=== PATIENT | female | born 1955 | race Caucasian/White ===

== ENCOUNTER 2017-01-03 07:04 | Day surgery (SDC) | payer MEDICARE ==
[2017-01-02 08:39] VITALS: BMI 32.6
[~2017-01-03 07:04] MED LIST: LACTATED RINGERS 1,000 ML IV SCH; LIDOCAINE 1% 20 ML VIAL (10MG/ML) FOR IV START INTRADERMA PRN
[2017-01-03] MEDS ORDERED: LACTATED RINGERS 1,000 ML IV ONE (07:12)
[2017-01-03 07:23] VITALS: TEMP 97.8
[2017-01-03] MEDS ORDERED: LIDOCAINE 1% INJ 10MG/ML (20 ML MDV) ONE (07:48)
[2017-01-03] MEDS ORDERED: PROPOFOL 10 MG/ML 20 ML VIAL IV ONE (07:48)
--- NOTE | 2017-01-03 07:52 | P.GSHP ---
History of Present Illness H&P Date: 01/03/17 Chief Complaint: GERD This is a 61-year-old female for from Dr. joseph. Patient rents today for EGD. She's had issues with GERD. Past Medical History Past Medical History: COPD, GERD/Reflux, Myocardial Infarction ([place]) Additional Past Medical History / Comment(s): STATES HEART SKIPS BEATS, HX OF [place] X2 (1ST UNKNOWN DATE, 2009)., STATES HAVING NAUSEA, OCCASIONAL VOMITING AND PAIN FROM HER GALL BLADDER. Last Myocardial Infarction Date:: 2009 History of Any Multi-Drug Resistant Organisms: None Reported Past Surgical History: Appendectomy, Heart Catheterization With Stent, Orthopedic Surgery, Tubal Ligation Additional Past Surgical History / Comment(s): RIGHT ANKLE Past Anesthesia/Blood Transfusion Reactions: No Reported Reaction Date of Last Stent Placement:: 2009 Past Psychological History: Anxiety, Depression Smoking Status: Current every day smoker Past Alcohol Use History: None Reported Additional Past Alcohol Use History / Comment(s): SMOKING SINCE 15 YRS OLD. SMOKE 1/2 PPD. Past Drug Use History: Marijuana Additional Drug Use History / Comment(s): CURRENT MARIJUANA USE. - Past Family History Brother(s) Family Medical History: Cancer Additional Family Medical History / Comment(s): ESOPHAGEAL CANCER Sister(s) Family Medical History: Blood Disorder Additional Family Medical History / Comment(s): 1 SISTER HAD BLOOD DISORDER AND FROM CLOT. 1 SISTER HAD DVT. 1 SISTER HAD PE. Medications and Allergies Home Medications Medication Instructions Recorded Confirmed Type Albuterol Inhaler [Ventolin Hfa 1 - 2 puff INHALATION Q6HR PRN MDD 01/02/17 History Inhaler] S Citalopram Hydrobromide [CeleXA] 40 mg PO DAILY 01/02/17 01/03/17 History Isosorbide Mononitrate ER [Imdur] 60 mg PO DAILY 01/02/17 01/03/17 History Metoprolol Tartrate [Lopressor] 50 mg PO BID 01/02/17 01/03/17 History Omeprazole 40 mg PO DAILY 01/02/17 01/03/17 History busPIRone HCL 15 mg PO TID 01/02/17 01/03/17 History Allergies Allergy/AdvReac Type Severity Reaction Status Date / Time ibuprofen [From Motrin] AdvReac Unknown Nausea & Verified 01/03/17 07:24 Vomiting tetracycline AdvReac Unknown Nausea & Verified 01/03/17 07:24 Vomiting Surgical - Exam Vital Signs Temp Pulse Resp BP Pulse Ox 97.8 F 98 20 133/88 96 01/03/17 07:21 01/03/17 07:21 01/03/17 07:21 01/03/17 07:21 01/03/17 07:21 - General well developed, no distress - Eyes PERRL - ENT normal pinna - Neck no masses - Respiratory normal expansion - Cardiovascular Rhythm: regular - Abdomen Abdomen: soft, non tender Assessment and Plan Plan: GERD. We'll perform EGD.
--- NOTE | 2017-01-03 08:12 | P.OP ---
Date of Procedure: 01/03/17 Preoperative Diagnosis: GERD Postoperative Diagnosis: Gastritis, no evidence of hiatal hernia Procedure(s) Performed: EGD Implants: Anesthesia: MAC Surgeon: Wilner Hirsch Pathology: other (Antrum, esophagus) Condition: stable Disposition: PACU Indications for Procedure: Operative Findings: Description of Procedure: The patient's placed on the endoscopy table in the lateral position. She received IV sedation. The gastroscope some placed oropharynx passed in the esophagus and stomach. Scope was placed through the pylorus. The first and second portion of the duodenum appeared normal. Scope was then brought back the antrum and this appeared mildly inflamed. A biopsies performed. The scope was unretroflexed and remainder of the stomach appeared normal. There is no evidence of hiatal hernia. The GE junction was at 40 cm. There is minimal inflammation the distal esophagus was biopsied. The proximal esophagus appeared normal. Scope was withdrawn for patient.
[2017-01-03 08:25] VITALS: BP 144/86; PULSE 68; RESP 18
== END 2017-01-03 08:42 | disposition home or self-care (01) ==
LOC: ORWHC2ENDO 07:04
PROVIDERS: ATTEND Surgery
DX: K21.0 Gastro-esophageal reflux disease with esophagitis (principal); K29.50 Unspecified chronic gastritis without bleeding; Z80.0 Family history of malignant neoplasm of digestive organs; I25.10 Atherosclerotic heart disease of native coronary artery without angina pectoris; F17.200 Nicotine dependence, unspecified, uncomplicated; J44.9 Chronic obstructive pulmonary disease, unspecified; Z79.899 Other long term (current) drug therapy; Z88.6 Allergy status to analgesic agent; Z88.1 Allergy status to other antibiotic agents
CPT/HCPCS: 88305; 88342; 43239; J2001; J2704

== ENCOUNTER → 2017-01-24 | Outpatient (CLI) | payer MEDICARE ==
--- NOTE | 2017-01-24 14:23 | MR ---
EXAMINATION TYPE: MR MRCP DATE OF EXAM: 01/24/2017 COMPARISON: NONE HISTORY: 61-year-old female Calculus of bile duct without cholangitis Technique: Multiplanar, multisequence images of the abdomen were obtained without IV contrast. Highly T2-weighted sequences performed. Radiographic instructions were generated on a dedicated independent workstation. FINDINGS: The opposed phase images of the liver show no significant loss of signal on the out of phase series t o suggest fatty infiltration. There is a 1.5 cm cyst along the anterior gallbladder fossa. Otherwise, no focal liver lesion. There is moderate intrahepatic and extrahepatic biliary ductal dilatation. The bile duct measures up to 1.3 cm and shows a 1 cm T2 dark and mildly T1 bright rounded filling defect at the distal bile lillie t near the ampulla. There may be a short segment stricture or focal spasm of the lower bile duct just above the filling defect given bile duct caliber at 4 mm here. The gallbladder is distended to the upper limits of normal at 3.7 cm wide. No cholelithiasis seen. Ad renal glands, right kidney, spleen, and pancreas appear within normal limits. There are a couple tiny cysts in the left kidney measuring up to 6 mm. No abdominal ascites, upper abdominal lymphadenopathy, or gross bowel abnormality seen. IMPRESSION: 1. A 1 cm bilirubin stone impacted at the distal duct/ampulla region causing moderate intrahepatic an d extrahepatic biliary ductal dilatation. 2. Short segment narrowing of the bile duct to 4 mm just above the stone could represent focal strict ure or more likelyspasm of the duct. 3. No additional cholelithiasis seen.
== END ==
LOC: RADMRIMAIN 13:11
PROVIDERS: ATTEND Surgery
DX: K80.70 Calculus of gallbladder and bile duct without cholecystitis without obstruction (principal)
CPT/HCPCS: 74181

== ENCOUNTER 2017-01-31 13:42 | Day surgery (SDC) | payer MEDICARE ==
[2017-01-30 11:12] VITALS: BMI 32.6
[~2017-01-31 13:42] MED LIST changes: +Pre Op ABX Message 1 EACH MISC MISCELLANE ONE
[2017-01-31 14:15] VITALS: TEMP 98.7
[2017-01-31] MEDS ORDERED: INDOMETHACIN 50MG SUPPOSITORY RECTAL ONE (14:15)
[2017-01-31] MEDS ORDERED: LEVOFLOXACIN 500MG-D5W PMX 500 MG in DEXTROSE/WATER 1 100ML.BAG IVPB ONE (14:15)
[2017-01-31 14:24] LABS: Basophils # (A) 0.1 k/uL (0-0.2); Basophils % (A) 1 %; CH 30.1; CHCM 33.5; Eosinophils # (A) 0.1 k/uL (0-0.7); Eosinophils % (A) 2 %; HCT 48.7 % (34.0-46.0); HDW 2.58; HGB 15.6 gm/dL (11.4-16.0); Luc # (Auto) 0.11; Luc % (Auto) 2; Lymphocytes # (A) 2.3 k/uL (1.0-4.8); Lymphocytes % (A) 34 %; MCH 29.1 pg (25.0-35.0); MCHC 32.1 g/dL (31.0-37.0); MCV 90.6 fL (80.0-100.0); Mean Platelet Volume 7.9; Monocytes # (A) 0.4 k/uL (0-1.0); Monocytes % (A) 6 %; Neutrophils # (A) 3.9 k/uL (1.3-7.7); Neutrophils % (A) 56 %; RBC 5.37 m/uL (3.80-5.40); WBC 6.9 k/uL (3.8-10.6); WBC (Perox) 6.43
[2017-01-31 14:28] LABS: INR 1.1 (<1.2); Partial Thromboplastin Time 23.3 sec (22.0-30.0); Prothrombin Time 10.9 sec (9.0-12.0)
[2017-01-31 14:35] LABS: ALT 53 U/L (9-52); AST 33 U/L (14-36); Alkaline Phosphatase 455 U/L (38-126); Anion Gap 9 mmol/L; Blood Urea Nitrogen 10 mg/dL (7-17); Calcium 9.7 mg/dL (8.4-10.2); Carbon Dioxide 25 mmol/L (22-30); Chloride 108 mmol/L (98-107); Glucose 93 mg/dL (74-99); Non-African American GFR(MDRD) >60 (>60 ml/min/1.73 sqM); Potassium 4.6 mmol/L (3.5-5.1); Sodium 142 mmol/L (137-145); Total Protein 7.4 g/dL (6.3-8.2)
[2017-01-31] MEDS ORDERED: KETAMINE 10 MG/ML 20 ML VIAL ONE (15:03)
[2017-01-31] MEDS ORDERED: PROPOFOL 10 MG/ML 20 ML VIAL IV ONE (15:03)
[2017-01-31] MEDS ORDERED: LIDOCAINE 1% INJ 10MG/ML (20 ML MDV) ONE (15:03)
[2017-01-31] MEDS ORDERED: fentaNYL (PF) 50 MCG/ML 2 ML AMP ONE (15:03)
[2017-01-31] MEDS ORDERED: MIDAZOLAM 2 MG/2 ML VIAL ONE (15:03)
[2017-01-31] MEDS ORDERED: IOHEXOL 300 MG/ML 50 ML BOTTLE MISCELLANE ONE (15:41)
[2017-01-31 15:56] VITALS: RESP 16
--- NOTE | 2017-01-31 16:00 | FL ---
Fluoroscopy History: ERCP hx of stones, 31 secs fluoro, 1 saved image.
--- NOTE | 2017-01-31 16:02 | P.PCN ---
Date of Procedure: 01/31/17 Preoperative Diagnosis: Postoperative Diagnosis: Procedure(s) Performed: Procedure: Endoscopic retrograde cholangiopancreatography with sphincterotomy and extraction of common bile duct stone using the 11.5 mm balloon catheter Preoperative diagnosis: Abdominal pain, liver enzymes, and abnormal CT and abnormal MRI. Postoperative diagnosis: 1. Filling defect in a somewhat dilated common bile duct consistent with common bile duct stone. 2. Successful sphincterotomy and extraction of a common bile duct stone using the 11.5 mm balloon catheter. Preparation and sedation: Were provided by anesthesia. Brief clinical history: 61-year old female with history of recurrent abdominal pain and abnormal liver enzymes in October. CT and MRI raised possibility of CBD stone. Procedure: With the patient in the prone position and after informed consent and adequate sedation, I passed the Olympus video duodenoscope down the esophagus into the stomach then passed it through the pylorus into the duodenum and brought the papilla into view. Initial cannulation and injection with dye resulted in opacification of the pancreatic duct. I was then able to selectively cannulate the common bile duct and inject dye. CBD appeared somewhat dilated and there was a filling defect distally consistent with a stone measuring around 1 cm or so. I, therefore, proceeded to exchange the catheter for a sphincterotome over a guidewire and after performing the sphincterotomy I was able to extract the common bile duct stone using the 11.5 mm balloon catheter. The patient tolerated the procedure well and did not have any immediate complications. Plan: The patient will be observed in the postop area for the next few hours and if stable she will be discharged home to follow-up as outpatient. The patient will be scheduled for cholecystectomy in the near future as per Dr Hirsch. Implants: Indications for Procedure: Operative Findings: Description of Procedure:
[2017-01-31 16:58] VITALS: BP 163/93; PULSE 56
== END 2017-01-31 17:05 | disposition home or self-care (01) ==
LOC: ORWHC2ENDO 13:42
DX: K80.51 Calculus of bile duct without cholangitis or cholecystitis with obstruction (principal); R93.8 Abnormal findings on diagnostic imaging of other specified body structures; R74.8 Abnormal levels of other serum enzymes; J44.9 Chronic obstructive pulmonary disease, unspecified; K21.9 Gastro-esophageal reflux disease without esophagitis; I25.10 Atherosclerotic heart disease of native coronary artery without angina pectoris; I10 Essential (primary) hypertension; I49.9 Cardiac arrhythmia, unspecified; G47.33 Obstructive sleep apnea (adult) (pediatric); F41.9 Anxiety disorder, unspecified; F32.9 Major depressive disorder, single episode, unspecified; I25.2 Old myocardial infarction; Z79.899 Other long term (current) drug therapy; Z88.6 Allergy status to analgesic agent; Z88.1 Allergy status to other antibiotic agents; F17.200 Nicotine dependence, unspecified, uncomplicated
CPT/HCPCS: 80053; 85025; 85610; 85730; 74330; 43264; 43262; J2250; J1956; J2001; J3010; J2704; Q9967

== ENCOUNTER 2017-03-06 08:51 | Day surgery (SDC) | payer MEDICARE ==
[2017-02-28 14:34] VITALS: BMI 32.6
[~2017-03-06 08:51] MED LIST changes: +DEXAMETHASONE SOD PHOSPHATE 10 MG/ML 1 ML VIAL IV ONE; +HEPARIN SODIUM,PORCINE 5,000 UNIT/ML 1 ML VIAL SQ ONE; +MIDAZOLAM 2 MG/2 ML VIAL IV PRN; +ONDANSETRON 4 MG/2 ML VIAL IVP ONE; -Pre Op ABX Message 1 EACH MISC MISCELLANE ONE; +SCOPOLAMINE 1.5MG/72HR PATCH TRANSDERM ONE; +ceFAZolin 2 GM in SODIUM CHLORIDE 0.9% 100 ML IVPB ONE
--- NOTE | 2017-03-06 10:25 | P.GSHP ---
History of Present Illness H&P Date: 03/06/17 Chief Complaint: Right upper quadrant pain This is a 61-year-old female who's had issues with rectal quadrant pain. Patient recent ERCP with stone extraction. She presents today for laparoscopic cholecystectomy. Past Medical History Past Medical History: COPD, GERD/Reflux, Myocardial Infarction ([place]) Additional Past Medical History / Comment(s): STATES HEART SKIPS BEATS, HX OF [place] X2 (1ST UNKNOWN DATE, 2009)., STATES HAVING NAUSEA, OCCASIONAL VOMITING AND PAIN FROM HER GALL BLADDER. Last Myocardial Infarction Date:: 2009 History of Any Multi-Drug Resistant Organisms: None Reported Past Surgical History: Appendectomy, Heart Catheterization With Stent, Hysterectomy, Orthopedic Surgery, Tubal Ligation Additional Past Surgical History / Comment(s): RIGHT ANKLE, EGD Past Anesthesia/Blood Transfusion Reactions: No Reported Reaction Date of Last Stent Placement:: 2009 Past Psychological History: Anxiety, Depression Smoking Status: Current every day smoker Past Alcohol Use History: None Reported Additional Past Alcohol Use History / Comment(s): SMOKING SINCE 15 YRS OLD. SMOKE 1/2 PPD. Past Drug Use History: Marijuana Additional Drug Use History / Comment(s): CURRENT MARIJUANA USE-OCCASIONAL USE - Past Family History Brother(s) Family Medical History: Cancer Additional Family Medical History / Comment(s): ESOPHAGEAL CANCER Sister(s) Family Medical History: Blood Disorder, Deep Vein Thrombosis (DVT), Pulmonary Embolus Additional Family Medical History / Comment(s): 1 SISTER HAD BLOOD DISORDER AND FROM CLOT. 1 SISTER HAD DVT. 1 SISTER HAD PE. Medications and Allergies Home Medications Medication Instructions Recorded Confirmed Type Albuterol Inhaler [Ventolin Hfa 1 - 2 puff INHALATION Q6HR PRN MDD 01/02/17 History Inhaler] S Citalopram Hydrobromide [CeleXA] 40 mg PO DAILY 01/02/17 02/28/17 History Isosorbide Mononitrate ER [Imdur] 60 mg PO DAILY 01/02/17 02/28/17 History Metoprolol Tartrate [Lopressor] 50 mg PO BID 01/02/17 02/28/17 History Omeprazole 40 mg PO DAILY 01/02/17 02/28/17 History busPIRone HCL 15 mg PO TID 01/02/17 02/28/17 History Allergies Allergy/AdvReac Type Severity Reaction Status Date / Time ibuprofen [From Motrin] AdvReac Unknown Nausea & Verified 03/06/17 10:02 Vomiting tetracycline AdvReac Unknown Nausea & Verified 03/06/17 10:02 Vomiting Surgical - Exam - General well developed, no distress - Eyes PERRL - ENT normal pinna - Neck no masses - Respiratory normal expansion - Cardiovascular Rhythm: regular - Abdomen Abdomen: soft Assessment and Plan Plan: Cholelithiasis History of common bile duct stone We'll perform laparoscopic cholecystectomy.
[2017-03-06] MEDS ORDERED: fentaNYL (PF) 50 MCG/ML 2 ML AMP ONE (10:49)
[2017-03-06] MEDS ORDERED: ROCURONIUM BROMIDE 10 MG/ML 10 ML VIAL IV ONE (10:49)
[2017-03-06] MEDS ORDERED: GLYCOPYRROLATE 0.2 MG/ML 2 ML VIAL ONE (10:49)
[2017-03-06] MEDS ORDERED: LIDOCAINE 1% INJ 10MG/ML (20 ML MDV) ONE (10:49)
[2017-03-06] MEDS ORDERED: PROPOFOL 10 MG/ML 20 ML VIAL IV ONE (10:49)
[2017-03-06] MEDS ORDERED: SUCCINYLCHOLINE CHLORIDE 100 MG/5 ML SYR IV ONE (10:49)
[2017-03-06] MEDS ORDERED: MIDAZOLAM 2 MG/2 ML VIAL ONE (10:49)
[2017-03-06] MEDS ORDERED: NEOSTIGMINE 1 MG/ML 10 ML VIAL ONE (10:49)
[2017-03-06] MEDS ORDERED: BUPIVACAIN-EPI 0.5%-1:200,000 30 ML VIAL SQ ONE (11:05)
--- NOTE | 2017-03-06 11:25 | P.OP ---
Date of Procedure: 03/06/17 Preoperative Diagnosis: Cholelithiasis Cholecystitis Postoperative Diagnosis: Cholelithiasis Cholecystitis Procedure(s) Performed: Laparoscopic cholecystectomy Anesthesia: ARY Surgeon: Wilner Hirsch Estimated Blood Loss (ml): 5 Pathology: other (Gallbladder) Condition: stable Disposition: PACU Description of Procedure: The patient was placed on the operating table. The patient received a general endotracheal tube anesthesia. The patients abdomen was prepped and draped in the usual sterile fashion. Through an infraumbilical stab incision, the fascia of the anterior abdominal wall was grasped with a pair of Kochers and then the Veress needle was placed in the peritoneal cavity. Position of the Veress needle was confirmed with positive drop test. The abdomen was then insufflated. After adequate insufflation, the 10 mm trocar was placed in the peritoneal cavity. Following this the laparoscope was placed in the peritoneal cavity. The patient was placed in the head-up, right side up position and then a 5 mm trocar was placed in the right lateral and right subcostal position under direct visualization. A 8 mm trocar was placed in the epigastric position. The gallbladder was grasped in the fundus and infundibulum. Traction on the gallbladder was placed in the lateral and the cephalad positions. The triangle of Calot was visualized.. The cystic duct was bluntly dissected until the union of the cystic duct and common bile duct was seen. The cystic duct was then divided and sealed with the Harmonic scissors. A PDS Endoloop was then placed throughout the cystic duct stump. The cystic artery divided and sealed with the Harmonic scissors. The gallbladder was then removed from the liver bed using Harmonic scissors. The gallbladder was then extracted through the epigastric port site. Operative field was checked for any bleeding spots and Harmonic scissors was used to coagulate the liver bed. The abdomen was irrigated. The trocars were removed. The skin was closed using interrupted 3-0 Vicryl suture. Dermabond dressing were applied. The patient tolerated the procedure well.
[2017-03-06] MEDS: HYDROmorphone 1 MG/ML 1 ML SYRINGE IVP PRN ×4 (11:35→11:53)
[2017-03-06 11:44] VITALS: TEMP 98.2
[2017-03-06] MEDS: MEPERIDINE 50 MG/ML SYRINGE IVP ONE ×2 (12:12→12:17)
[2017-03-06 12:15] VITALS: RESP 18
[2017-03-06 12:35] VITALS: PULSE 57
[2017-03-06] MEDS ORDERED: HYDROcodone/APAP 7.5-325MG 1 EACH TAB PO ONE (12:53)
[2017-03-06 13:34] VITALS: BP 125/71
== END 2017-03-06 14:03 | disposition home or self-care (01) ==
LOC: OR 08:51
PROVIDERS: ATTEND Surgery
DX: K81.1 Chronic cholecystitis (principal); K21.9 Gastro-esophageal reflux disease without esophagitis; J44.9 Chronic obstructive pulmonary disease, unspecified; I25.2 Old myocardial infarction; F17.200 Nicotine dependence, unspecified, uncomplicated; F41.9 Anxiety disorder, unspecified; F32.9 Major depressive disorder, single episode, unspecified; Z79.899 Other long term (current) drug therapy; Z88.6 Allergy status to analgesic agent; Z88.1 Allergy status to other antibiotic agents
CPT/HCPCS: 93005; 88304; 47562; J2250; J1644; J1100; J2710; J2175; J0690; J2405; J2001; J3010; J1170; J0330; J2704

== ENCOUNTER → 2017-12-21 | Outpatient (CLI) | payer MEDICARE ==
--- NOTE | 2017-12-22 05:22 | MR ---
EXAMINATION TYPE: MR cervical spine wo con DATE OF EXAM: 12/21/2017 COMPARISON: None HISTORY: Pain, Tingling, Numbness in arms TECHNIQUE: Multiplanar, multisequence images of the cervical spine were acquired. Cervical vertebra have normal alignment. There is mild narrowing of cervical disc spaces throughout t he cervical spine. There is spurring of the endplates and small posterior disc bulges posteriorly fro m C3 to C7. The canal is narrowed to 7 mm at C5-6. Canal is 8.5 mm at C6-7. Canal is 7.5 mm at C3-4. Canal is 7.5 mm at C4-5. Cervical spinal cord has normal signal pattern without evidence of edema. Th e brainstem appears intact. There is no compression fracture. There is no cervical paraspinal mass. C 5-6 disc herniation extends to the right side impinging on the neural foramen. This C3-4 disc herniat ion extends to the left side impinging on the neural foramen. I see no focal bone destruction. IMPRESSION: Multilevel spondylotic changes. Mild multilevel cervical spinal stenosis as above. Small posterior ce rvical disc herniations. Disc herniation is towards the right side at C5-6 and the left side at C3-4.
== END | disposition home or self-care (01) ==
LOC: RADMRIMAIN 18:09
PROVIDERS: ATTEND Family Medicine
DX: M48.02 Spinal stenosis, cervical region (principal); M50.21 Other cervical disc displacement, high cervical region; M47.812 Spondylosis without myelopathy or radiculopathy, cervical region
CPT/HCPCS: 72141

== ENCOUNTER → 2019-05-10 | Outpatient (CLI) | payer MEDICARE ==
--- NOTE | 2019-05-13 10:32 | PE ---
EXAMINATION TYPE: PET CT fusion skull to thigh DATE OF EXAM: 05/10/2019 COMPARISON: NONE HISTORY: Solitary pulmonary nodule. TECHNIQUE: Following the intravenous administration of 12.24 mCi of F-18 FDG, whole body images are performed from the skull base to the midthigh. Images are reviewed on the computer in the coronal, a xial, and sagittal planes. Reconstructed rotating images are created on independent workstation and reviewed on the computer. A noncontrast CT is performed in conjunction with the PET scan. SCAN: Initial Scan FINDINGS: SKULL BASE AND NECK: No areas of suspicious hypermetabolic uptake. CHEST, MEDIASTINUM, AND HILAR REGION: Background mild underlying emphysematous change. There is oval slightly spiculated 2.3 x 2.0 cm hypermetabolic right upper lobe nodule axial image 83 with Max SUV o f 18.12. Immediately inferior to this there is smaller slightly lobulated oval 1.2 x 1.0 cm right upp er lobe nodule axial image 88 with max SUV of 9.54. No additional areas of hypermetabolic uptake iden tified in the opposite left lung or the hilar region or mediastinum to suggest abnormal adenopathy. ABDOMEN AND PELVIS: No areas of suspicious hypermetabolic uptake. No adrenal masses are noted. Mild n onspecific right-sided bowel uptake. OSSEOUS STRUCTURES: No areas of suspicious hypermetabolic uptake. OTHER CT: There is three-vessel coronary artery calcification and/or stents. Cardiomegaly with tiny p ericardial effusion. Cholecystectomy clips. Anterior positioning or axis to right kidney. Moderate calcified plaque abdomi nal aorta extending into iliac branch vessels. Diverticula in the sigmoid colon. Uterus is surgically absent or atrophic. S-shaped scoliotic curvature with multilevel spurring in the spine. IMPRESSION: Suspicious uptake in 2 adjacent right upper lobe nodules consistent with neoplasm. No abn ormal adenopathy or metastatic disease present.
== END | disposition home or self-care (01) ==
LOC: RADPETMAIN 12:46
PROVIDERS: ATTEND Internal Medicine
DX: R91.8 Other nonspecific abnormal finding of lung field (principal)
CPT/HCPCS: 78815; A9552

== ENCOUNTER 2019-05-28 09:58 | Day surgery (SDC) | payer MEDICARE ==
[2019-05-27 10:24] VITALS: BMI 32.6
[~2019-05-28 09:58] MED LIST changes: +ALBUTEROL NEB (CONC) 2.5 MG/0.5 ML INHALATION ONE; -HEPARIN SODIUM,PORCINE 5,000 UNIT/ML 1 ML VIAL SQ ONE; +HYDROmorphone 0.5 MG/0.5 ML SYRINGE IVP PRN; +LIDOCAINE 2% (PF) 20 MG/ML 5 ML VIAL INHALATION ONE; +LIDOCAINE VISCOUS 300 MG/15 ML CUP MUCOUS MEM ONE; +SODIUM CHLORIDE 0.9% 1,000 ML IV SCH; -ceFAZolin 2 GM in SODIUM CHLORIDE 0.9% 100 ML IVPB ONE
[2019-05-28 10:53] LABS: INR 1.1 (<1.2); Prothrombin Time 11.2 sec (9.0-12.0)
[2019-05-28] MEDS ORDERED: fentaNYL (PF) 50 MCG/ML 2 ML AMP IV ONE (11:35)
--- NOTE | 2019-05-28 12:09 | CT ---
EXAMINATION TYPE: CT Chest wo con Veran Protocol DATE OF EXAM: 05/28/2019 COMPARISON: PET/CT May 10, 2019. HISTORY: Abnormal PET/CT, pulmonary nodule CT DLP: 627 mGycm Automated exposure control for dose reduction was used. FINDINGS: CT chest without contrast is performed utilizing Veran protocol without IV contrast. Examination is f or bronchoscopy planning and upper diagnostic purposes. Redemonstration of concerning 2.1 x 1.9 cm ri ght upper lobe pulmonary nodule. There is small pericardial effusion anteriorly and inferiorly increa sed in prominence from prior PET/CT incidentally noted. IMPRESSION: ABOVE.
[2019-05-28] MEDS ORDERED: LIDOCAINE 1% INJ 10MG/ML (20 ML MDV) ONE (12:11)
[2019-05-28] MEDS ORDERED: MIDAZOLAM 2 MG/2 ML VIAL ONE (12:11)
[2019-05-28] MEDS ORDERED: SUCCINYLCHOLINE CHLORIDE 100 MG/5 ML SYR IV ONE (12:11)
[2019-05-28] MEDS ORDERED: fentaNYL (PF) 50 MCG/ML 2 ML AMP ONE (12:11)
[2019-05-28] MEDS ORDERED: PHENYLEPHRINE-0.9% NACL SYG 1 MG/10 ML SYRINGE ONE (12:11)
[2019-05-28] MEDS ORDERED: PROPOFOL 10 MG/ML 20 ML VIAL IV ONE (12:11)
[2019-05-28] MEDS ORDERED: LACTATED RINGERS 1,000 ML IV ONE (13:09)
[2019-05-28 13:31] VITALS: TEMP 96.7
[2019-05-28] MEDS ORDERED: HYDROmorphone 1 MG/ML 1 ML SYRINGE IVP ONE (13:35)
--- NOTE | 2019-05-28 14:03 | XR ---
EXAMINATION TYPE: XR chest 1V portable DATE OF EXAM: 05/28/2019 COMPARISON: Chest CT earlier today. Older studies. HISTORY: Suspicious right upper lung nodule. TECHNIQUE: Single frontal view of the chest is obtained. FINDINGS: There is no focal air space opacity, pleural effusion, or pneumothorax seen after bronchos copy and sampling. Suspicious nearly 2 cm right upper lung nodule projects over posterior right fifth rib. Overlying EKG leads. The cardiac silhouette size is upper limits of normal with atherosclerotic change aortic knob. The osseous structures are intact. IMPRESSION: No pneumothorax identified after endoscopy for right upper lung nodule sampling.
[2019-05-28 14:11] VITALS: RESP 16
[2019-05-28 14:49] VITALS: BP 153/79; PULSE 56
--- NOTE | 2019-05-28 20:52 | OP ---
OPERATIVE REPORT PROCEDURE: Navigational bronchoscopy and multiple right upper lobe transbronchial biopsies of right upper lobe nodule using the navigational bronchoscopy protocol. ANESTHESIA USED: General anesthesia. The patient was intubated by STITCH RUBBER. Please refer to STITCH RUBBER documentation. PROCEDURE DESCRIPTION: The patient had a Veran CT of the chest earlier today, and sensors were placed on the chest. We performed lung mapping of the 2 target lesions in the right upper lobe and uploaded to the Veran navigational system. The patient was intubated by STITCH RUBBER, and using the navigational protocol, we marked the main paula and the secondary paula, and calibration was done. Then, using navigational guidance, the bronchoscope was inserted into the endotracheal tube, and the patient was connected to mechanical ventilation at that time. Thorough examination was done of the right upper lobe, right middle lobe, right lower lobe, left upper lobe lingula and left lower lobe. There was no evidence of any endobronchial tumors. Then, using the targeting system/navigational system, we were able to reach the right upper lobe targeted lesion which was roughly about 2.0 cm in the right upper lobe anterior segment, and multiple transbronchial biopsies were done under navigational guidance. Then lavage and washing of the right upper lobe anterior segment was done. Procedure was well tolerated. There was no evidence of any immediate complications. The patient will be extubated by STITCH RUBBER, and she will be updated on her procedure in the recovery room. MMODL / IJN: [id number] /
== END 2019-05-28 14:48 | disposition home or self-care (01) ==
LOC: ORWHC2ENDO 09:58
PROVIDERS: ATTEND Internal Medicine
DX: R91.8 Other nonspecific abnormal finding of lung field (principal); R06.09 Other forms of dyspnea; R05 Cough; I10 Essential (primary) hypertension; F17.210 Nicotine dependence, cigarettes, uncomplicated; K21.9 Gastro-esophageal reflux disease without esophagitis; F41.9 Anxiety disorder, unspecified; I25.10 Atherosclerotic heart disease of native coronary artery without angina pectoris; I25.2 Old myocardial infarction; J44.9 Chronic obstructive pulmonary disease, unspecified; M48.02 Spinal stenosis, cervical region; Z79.899 Other long term (current) drug therapy; Z79.01 Long term (current) use of anticoagulants; Z86.73 Personal history of transient ischemic attack (TIA), and cerebral infarction without residual deficits; Z98.890 Other specified postprocedural states; Z90.49 Acquired absence of other specified parts of digestive tract; Z90.89 Acquired absence of other organs; Z90.710 Acquired absence of both cervix and uterus; Z98.61 Coronary angioplasty status; Z88.6 Allergy status to analgesic agent; Z88.1 Allergy status to other antibiotic agents; Z97.2 Presence of dental prosthetic device (complete) (partial); Z82.49 Family history of ischemic heart disease and other diseases of the circulatory system; Z82.5 Family history of asthma and other chronic lower respiratory diseases
CPT/HCPCS: 88108; 88305; 85610; 71045; 71250; 31625; 31624; 31627; J2250; J2001; J3010; J1170; J2370; J0330; J2704

== ENCOUNTER → 2019-07-08 | Outpatient (CLI) | payer MEDICARE ==
[2019-07-08 15:01] LABS: Basophils # (A) 0.1 k/uL (0-0.2); Basophils % (A) 2 %; Eosinophils # (A) 0.1 k/uL (0-0.7); Eosinophils % (A) 3 %; HCT 41.5 % (34.0-46.0); HGB 13.3 gm/dL (11.4-16.0); Lymphocytes # (A) 1.8 k/uL (1.0-4.8); Lymphocytes % (A) 33 %; MCH 28.9 pg (25.0-35.0); MCHC 32.1 g/dL (31.0-37.0); MCV 90.1 fL (80.0-100.0); Mean Platelet Volume 7.6; Monocytes # (A) 0.4 k/uL (0-1.0); Monocytes % (A) 7 %; Neutrophils % (A) 55 %; Platelet Count 280 k/uL (150-450); RBC 4.61 m/uL (3.80-5.40); RDW 13.7 % (11.5-15.5); WBC 5.4 k/uL (3.8-10.6)
[2019-07-08 15:14] LABS: Potassium 6.1 mmol/L (3.5-5.1)
[2019-07-08 15:23] LABS: INR 2.7 (<1.2); Partial Thromboplastin Time 36.1 sec (22.0-30.0); Prothrombin Time 26.5 sec (9.0-12.0)
[2019-07-08 15:28] LABS: Appearance,Urine Clear (Clear); Bacteria,Urine Moderate /hpf; Bilirubin,Urine Negative (Negative); Blood,Urine Negative (Negative); Color,Urine Yellow; Glucose,Urine (UA) Negative (Negative); Ketones,Urine Negative (Negative); Leukocyte Esterase,Urine Large (Negative); Mucus,Urine Rare /hpf; Nitrite,Urine Negative (Negative); Protein,Urine Negative (Negative); RBC,Urine 3 /hpf (0-5); Specific Gravity,Urine 1.014 (1.001-1.035); WBC,Urine 59 /hpf (0-5)
== END | disposition home or self-care (01) ==
LOC: LABPAT 14:21
PROVIDERS: ATTEND Thoracic Surgery (Cardiothoracic Vascular Surgery)
DX: Z01.812 Encounter for preprocedural laboratory examination (principal); C34.11 Malignant neoplasm of upper lobe, right bronchus or lung
CPT/HCPCS: 80051; 81001; 82565; 82947; 84520; 85025; 85610; 85730; 86850; 86900; 86901; 87077; 87086; 87186

== ENCOUNTER 2019-07-11 05:59 | Inpatient (IN) | payer MEDICARE ==
[2019-07-03 16:02] VITALS: BMI 32.6
[2019-07-11] MEDS ORDERED: LIDOCAINE 1% 20 ML VIAL (10MG/ML) FOR IV START INTRADERMA PRN (06:08)
[2019-07-11] MEDS ORDERED: LACTATED RINGERS 1,000 ML IV SCH (06:08)
[2019-07-11] MEDS ORDERED: ONDANSETRON 4 MG/2 ML VIAL IVP ONE (06:08)
[2019-07-11] MEDS ORDERED: DEXAMETHASONE SOD PHOSPHATE 10 MG/ML 1 ML VIAL IV ONE (06:08)
[2019-07-11] MEDS ORDERED: MIDAZOLAM 2 MG/2 ML VIAL IVP ONE (07:10)
[2019-07-11] MEDS ORDERED: GLYCOPYRROLATE 0.2 MG/ML 2 ML VIAL ONE (07:32)
[2019-07-11] MEDS ORDERED: SUCCINYLCHOLINE CHLORIDE 100 MG/5 ML SYR IV ONE (07:32)
[2019-07-11] MEDS ORDERED: MIDAZOLAM 2 MG/2 ML VIAL ONE (07:32)
[2019-07-11] MEDS ORDERED: LABETALOL 5 MG/ML VIAL MDV ONE (07:32)
[2019-07-11] MEDS ORDERED: NEOSTIGMINE 1 MG/ML 10 ML VIAL ONE (07:32)
[2019-07-11] MEDS ORDERED: hydrALAZINE HCL 20 MG/ML 1 ML VIAL ONE (07:32)
[2019-07-11] MEDS ORDERED: ROCURONIUM BROMIDE 10 MG/ML 5 ML VIAL IV ONE (07:32)
[2019-07-11] MEDS ORDERED: PROPOFOL 10 MG/ML 20 ML VIAL IV ONE (07:32)
[2019-07-11] MEDS ORDERED: fentaNYL (PF) 50 MCG/ML 2 ML AMP ONE (07:32)
[2019-07-11] MEDS ORDERED: LIDOCAINE 1% INJ 10MG/ML (20 ML MDV) ONE (07:32)
[2019-07-11 07:58] LABS: INR 1.3 (<1.2); Prothrombin Time 13.3 sec (9.0-12.0)
[2019-07-11] MEDS ORDERED: BUPIVACAINE (PF) 0.5% 30 ML VIAL SQ ONE (08:36)
--- NOTE | 2019-07-11 11:12 | P.OP ---
Date of Procedure: 07/11/19 Preoperative Diagnosis: Right lung mass Postoperative Diagnosis: Same Procedure(s) Performed: Robotic-assisted thoracoscopic right upper lobectomy with mediastinal lymph node dissection Implants: None Anesthesia: ARY Surgeon: Ruiz Zhou Pig Machine Supervisor #1: Girma Nagel Estimated Blood Loss (ml): 50 IV fluids (ml): 1,000 Urine output (ml): 200 Pathology: other (Right upper lobe, lymph node stations R4, 7, R8, R9, R 10, R 11. Frozen section of bronchial margin negative.) Indications for Procedure: 63-year-old female history of cigarette smoking presents with enlarging right lower lobe mass which is PET positive. She has no evidence of metastasis by Pat. The mass is fairly deep in the lung. Endobronchial biopsies were nondiagnostic. Lobectomy was recommended. Operative Findings: Fissures were near-complete. There was marketed hilar and mediastinal anthracotic adenopathy present. There was a bilobate mass in the posterior segment of the right upper lobe. Description of Procedure: The patient was brought to the operating room, placed supine on the operating table, anesthetized and intubated with a double-lumen endotracheal tube. Tube was positioned and secured with fiberoptic bronchoscopic assistance. There was no evidence of any intrabronchial tumor. Patient was turned in the left lateral decubitus position and appropriately positioned for robotic lobectomy. The right chest was sterilely prepped and draped. Robotic ports were placed in the seventh interspace in the anterior axillary line and 10 cm anterior to this. A robotic port was placed in the posterior axillary line in the eighth interspace. Robotic port was placed just anterior to the spine in the sixth interspace. After confirming presence in the pleural space CO2 insufflation was begun. Working port was placed between the tube anteriormost ports at the level of the diaphragm. Posterior fissure was taken down with electrocautery. The lesser fissure was incomplete. The inferior pulmonary ligament was mobilized. Level VIII and 9 lymph nodes were resected. Dissection was carried up onto the bronchus and the upper lobe bronchus was dissected out. This was ligated and divided with a single firing of a robotic medium thick stapler. Next the lymph nodes in the paula between the upper lobe and bronchus intermedius were resected and the posterior segmental branch of the pulmonary artery was dissected out. It was ligated and divided with a single firing of a robotic vascular stapler. Dissection was now carried out in the paraesophageal and carinal regions and lymph nodes were resected. Attention was now directed anteriorly. Branch of the superior pulmonary vein draining the upper lobe was dissected out ligated and divided with a robotic vascular stapler. Dissection was carried deeper into the hilum and 2 branches of the pulmonary artery were identified leading to the upper lobe. These were each separately ligated and divided with 2 firings of the robotic vascular stapler. Majority of the lymph nodes were resected en bloc with the specimen. We now completed the lesser fissure with 2 firings of a robotic medium stapler. This freed the lobectomy specimen which was placed in an Endo Catch bag and retracted inferiorly. The R 10 and R4 lymph nodes were now dissected out and sent for permanent section. Hemostasis was noted. Chest was irrigated with warm water. Bronchial stump was noted to have no air leak. No air leak was also noted from the fissure. The robot was removed from the patient and the working port incision was opened somewhat. The specimen was brought out through this incision in an Endo Catch bag and examined on the back table and then sent for bronchial margin check. Lung was inflated under direct vision and a 28-Lithuanian chest tube was placed posterior apically through an anterior incision. Incisions were closed with layers of Vicryl suture. Chest tube was secured with an 0 silk suture. Rib blocks were performed posteriorly at the level of the incisions. Dry sterile dressings were applied the patient was turned supine and extubated and transferred to recovery in stable condition.
[2019-07-11] MEDS ORDERED: LACTATED RINGERS 1,000 ML IV ONE (11:14)
[2019-07-11] MEDS: HYDROmorphone 0.5 MG/0.5 ML SYRINGE IVP PRN ×4 (11:30→12:21)
--- NOTE | 2019-07-11 11:53 | XR ---
EXAMINATION TYPE: XR chest 1V portable DATE OF EXAM: 07/11/2019 COMPARISON: 05/28/2019 HISTORY: Status post lobectomy TECHNIQUE: Single frontal view of the chest is obtained. FINDINGS: The right-sided lung masses no longer visualized status post right lobectomy. Right-sided thoracostomy tube has been placed in the interim with a small residual pneumothorax. Maximum apical p leural separation of 1.0 cm. Some cutaneous emphysema along the right lateral chest wall inferiorly. No focal consolidation, pleural effusion or pneumothorax. Cardiomediastinal silhouette is mildly enla rged and stable. IMPRESSION: Postsurgical change of a right upper lobectomy with small right-sided pneumothorax and a ppropriately positioned thoracostomy tube.
[2019-07-11] MEDS ORDERED: IPRATROPIUM-ALBUTEROL 3 ML NEB IH PRN (12:11)
[2019-07-11] MEDS ORDERED: DEXTROSE 5%-0.45% NACL 1,000 ML IV SCH (12:11)
[2019-07-11] MEDS ORDERED: ACETAMINOPHEN TAB 500 MG TAB PO PRN (12:11)
[2019-07-11] MEDS ORDERED: ONDANSETRON 4 MG/2 ML VIAL IVP PRN (12:11)
[2019-07-11] MEDS ORDERED: IV FLUID CONTINUATION 1,000 ML IV ONE (12:22)
[2019-07-11 12:38] LABS: Glucose,Whole Blood 123 mg/dL (75-99)
[2019-07-11] MEDS: KETOROLAC 30 MG/ML 1 ML VIAL IVP SCH ×2 (12:51→18:12)
[2019-07-11] MEDS ORDERED: SODIUM CHLORIDE 0.9% 500 ML 500 ML IV ONE ×2 (13:03→16:08)
[2019-07-11 14:09] LABS: ABG Base Excess -0.8 mmol/L; ABG HCO3 25 mmol/L (21-25); ABG Oxygen Saturation 95.9 % (94-97); ABG PCO2 50 mmHg (35-45); ABG PH 7.32 (7.35-7.45); ABG PO2 82 mmHg (83-108); ABG TCO2 27 mmol/L (19-24); Allen Test Performed? Yes
[2019-07-11] MEDS: IPRATROPIUM-ALBUTEROL 3 ML NEB IH SCH ×3 (14:12→20:30)
--- NOTE | 2019-07-11 15:40 | P.CNPUL ---
History of Present Illness Consult date: 07/11/19 Reason for consult: dyspnea, lung mass, abnormal CXR/CT Chief complaint: Right upper lobe lung mass, status post thoracoscopic right upper lobectomy History of present illness: 63-year-old white female patient with history of COPD, former smoker, hypertension, coronary arterial sclerosis, previous history of CVA, anxiety, who follows with Dr. Gamez in the pulmonary clinic, was discovered to have 2 suspicious right upper lobe nodules one measuring 17 x 15 x 18 mm and another nodule measuring 12 x 9 x 8 mm in October 2018 at [facility] in [place] when she was hospitalized for a right-sided CVA. Patient had bronchoscopy and biopsy of the above-mentioned right upper lobe nodules at [facility], and it was nondiagnostic. Patient then underwent navigational bronchoscopy and multiple right upper lobe transbronchial biopsies of right upper lobe nodule on 05/28/2019 and the biopsies were nondiagnostic. Patient had a PET scan done on 05/10/2019 which showed slightly spiculated 2.3 x 2.0 cm hypermetabolic right upper lobe nodule with max SUV of 18.12. Immediately inferior to this there was a smaller slightly lobulated 1.2 x 1.0 cm right upper lobe nodule with SUV of 9.54. No additional areas of hypermetabolic uptake were identified in the opposite left lung or the hilar region or mediastinum to suggest abnormal adenopathy. As such both nodules were suspicious for malignancy. Patient was referred to thoracic surgery for surgical resection, and on 07/11/2019 patient underwent robotic-assisted thoracoscopic right upper lobectomy with mediastinal lymph node dissection of lymph node stations 4R, 7, 8 hour, 9 are, 10 R, and 11 RR. Frozen sections of bronchial margins were negative. Patient is seen in the postoperative period in the intensive care unit, she is a selective overflow, sh e is lethargic, but easily arousable, having moderate amount of pain in the incision in the right chest. Right chest tube is in place, with no evidence of air leak, small amount of serosanguineous drainage in the chest tube, it is connected to wall suction. Postoperative chest x-ray showed postsurgical changes of a right upper lobectomy with small right-sided pneumothorax and appropriately positioned thoracostomy tube Review of Systems All systems: negative Constitutional: Denies chills, Denies fever Eyes: denies blurred vision, denies pain Ears, nose, mouth and throat: Denies headache, Denies sore throat Cardiovascular: Denies chest pain, Denies shortness of breath Respiratory: Denies cough Gastrointestinal: Denies abdominal pain, Denies diarrhea, Denies nausea, Denies vomiting Genitourinary: Denies dysuria, Denies hematuria Musculoskeletal: Denies myalgias Integumentary: Denies pruritus, Denies rash Neurological: Denies numbness, Denies weakness Psychiatric: Denies anxiety, Denies depression Endocrine: Denies fatigue, Denies weight change Past Medical History Past Medical History: Cancer, Heart Failure, COPD, CVA/TIA, GERD/Reflux, Hyperlipidemia, Hypertension, Myocardial Infarction ([place]), Osteoarthritis (OA) Additional Past Medical History / Comment(s): "STATES HEART SKIPS BEATS", HX OF [place] X2 (1ST UNKNOWN DATE, 2009)., LUNG CANCER PER PATIENT,. pain occurs at times in back and rt arm, shoulders,neck and hips, jun knees and spinal stenosis Last Myocardial Infarction Date:: 2009 History of Any Multi-Drug Resistant Organisms: None Reported Past Surgical History: Appendectomy, Cholecystectomy, Heart Catheterization With Stent, Hysterectomy, Orthopedic Surgery, Tubal Ligation Additional Past Surgical History / Comment(s): RIGHT ANKLE, EGD, heart stent x2 2009,2013 Past Anesthesia/Blood Transfusion Reactions: No Reported Reaction Date of Last Stent Placement:: 2013 Additional Past Alcohol Use History / Comment(s): SMOKING SINCE 15 YRS OLD SMOKES 1/2PPD cutting down - Past Family History Brother(s) Family Medical History: Cancer Additional Family Medical History / Comment(s): ESOPHAGEAL CANCER Sister(s) Family Medical History: Blood Disorder, Deep Vein Thrombosis (DVT), Pulmonary Embolus Additional Family Medical History / Comment(s): 1 SISTER HAD BLOOD DISORDER AND FROM CLOT. 1 SISTER HAD DVT. 1 SISTER HAD PE. Medications and Allergies Home Medications Medication Instructions Recorded Confirmed Type Albuterol Inhaler [Ventolin Hfa 1 - 2 puff INHALATION Q6HR PRN 01/02/17 07/11/19 History Inhaler] Citalopram Hydrobromide [CeleXA] 40 mg PO DAILY 01/02/17 07/11/19 History Isosorbide Mononitrate ER [Imdur] 60 mg PO DAILY 01/02/17 07/11/19 History busPIRone HCL 15 mg PO TID 01/02/17 07/11/19 History HYDROcodone/APAP 7.5-325MG [[place] 1 each PO Q4H PRN #60 tab 03/06/17 07/11/19 Rx 7.5] Lisinopril [Zestril] 10 mg PO HS 05/27/19 07/11/19 History Metoprolol Succinate (ER) [Toprol 50 mg PO DAILY 05/27/19 07/11/19 History Xl] Warfarin [Coumadin] 5 mg PO SUTUTH 05/27/19 07/11/19 History Warfarin [Coumadin] 7.5 mg PO MOWEFRSA 05/27/19 07/11/19 History Atorvastatin [Lipitor] 40 mg PO HS 07/03/19 07/11/19 History Cholecalciferol [Vitamin D3 (25 5,000 unit PO DAILY 07/03/19 07/11/19 History Mcg = 1000 Iu)] Gabapentin [Neurontin] 300 mg PO TID 07/03/19 07/11/19 History Pantoprazole Sodium [Protonix] 40 mg PO DAILY 07/03/19 07/11/19 History Allergies Allergy/AdvReac Type Severity Reaction Status Date / Time ibuprofen [From Motrin] AdvReac Unknown Nausea & Verified 07/11/19 06:31 Vomiting tetracycline AdvReac Unknown Nausea & Verified 07/11/19 06:31 Vomiting Physical Exam Vitals: Vital Signs Temp Pulse Pulse Pulse Resp BP BP 07/11/19 15:00 69 18 99/61 07/11/19 14:45 71 16 94/55 07/11/19 14:30 71 16 94/58 07/11/19 14:15 69 18 101/62 07/11/19 14:00 72 17 111/55 07/11/19 13:45 74 21 99/57 07/11/19 13:30 74 18 89/53 07/11/19 13:15 70 16 86/57 07/11/19 13:00 71 17 83/57 07/11/19 12:36 98.1 F 70 18 83/54 07/11/19 12:15 73 16 110/63 07/11/19 11:45 72 16 108/59 07/11/19 11:30 72 16 117/56 07/11/19 11:15 97.2 F L 77 16 134/66 07/11/19 06:41 97.0 F L 51 L 16 138/77 Pulse Ox 07/11/19 15:00 95 07/11/19 14:45 95 07/11/19 14:30 94 L 07/11/19 14:15 94 L 07/11/19 14:00 95 07/11/19 13:45 93 L 07/11/19 13:30 92 L 07/11/19 13:15 93 L 07/11/19 13:00 93 L 07/11/19 12:36 92 L 07/11/19 12:15 93 L 07/11/19 11:45 95 07/11/19 11:30 95 07/11/19 11:15 95 07/11/19 06:41 97 Intake and Output 07/11/19 07/11/19 07/11/19 06:59 14:59 22:59 Intake Total 200 2080 160 Output Total 460 20 Balance 200 1620 140 Intake: IV 200 1500 Intake, IV Titration 580 40 Amount Dextrose 5%-0.45% NaCl 1, 80 40 000 ml @ 40 mls/hr IV . Q24H [facility] Rx#:[id number] Sodium Chloride 0.9% 500 500 ml 500 ml @ 999 mls/hr IV .Q31M ONE Rx#:[id number] Oral 120 Output: Drainage 20 Right Chest 20 Urine 340 20 Estimated Blood Loss 100 Other: Voiding Method Indwelling Catheter Weight 98.5 kg GENERAL EXAM: Somnolent, but easily arousable, 63-year-old white female, on 4 L of oxygen with a pulse ox of 95% comfortable in no apparent distress. HEAD: Normocephalic/atraumatic. EYES: Normal reaction of pupils, equal size. Conjunctiva pink, sclera white. NOSE: Clear with pink turbinates. THROAT: No erythema or exudates. NECK: No masses, no JVD, no thyroid enlargement, no adenopathy. CHEST: No chest wall deformity. Symmetrical expansion. Right lateral chest chest tube is in place, with small amount of serosanguineous output in the Pleur-evac, to wall suction, no evidence of air leak LUNGS: Equal air entry with a few scattered wheezes, but no rhonchi or dullness. CVS: Regular rate and rhythm, normal S1 and S2, no gallops, no murmurs, no rubs ABDOMEN: Soft, nontender. No hepatosplenomegaly, normal bowel sounds, no guarding or rigidity. EXTREMITIES: No clubbing, no edema, no cyanosis, 2+ pulses and upper and lower extremities. MUSCULOSKELETAL: Muscle strength and tone normal. SPINE: No scoliosis or deformity SKIN: No rashes CENTRAL NERVOUS SYSTEM: Alert and oriented -3. No focal deficits, tone is normal in all 4 extremities. PSYCHIATRIC: Alert and oriented -3. Appropriate affect. Intact judgment and insight. Results - Laboratory Findings CBC and BMP: 07/11/19 06:50 ABG ABG pH 7.32 (7.35-7.45) L 07/11/19 13:57 ABG pCO2 50 mmHg (35-45) H 07/11/19 13:57 ABG pO2 82 mmHg (83-108) L 07/11/19 13:57 ABG O2 Saturation 95.9 % (94-97) 07/11/19 13:57 PT/INR, D-dimer PT 13.3 sec (9.0-12.0) H 07/11/19 06:50 INR 1.3 (<1.2) H 07/11/19 06:50 Abnormal lab findings: Abnormal Labs 07/11/19 07/11/19 07/11/19 06:50 12:35 13:57 PT 13.3 H INR 1.3 H ABG pH 7.32 L ABG pCO2 50 H ABG pO2 82 L ABG Total CO2 27 H POC Glucose (mg/dL) 123 H - Diagnostic Findings Chest x-ray: report reviewed, image reviewed Assessment and Plan Plan: Assessment: #1. 2 Right upper lobe spiculated nodules with hypermetabolic uptake on the PET scan, and to bronchoscopy with biopsies were nondiagnostic, status post thoracoscopic robotic-assisted right upper lobectomy with mediastinal lymph node dissection, with the lymph node stations 4R, 7, 8, 9 hour, 10 R, 11 R, frozen section of bronchial margin were negative #2. Chronic and ongoing history of smoking #3. Mild chronic obstructive pulmonary disease with FEV1 of 70% of predicted and fusion capacity of 54% of predicted #4. GERD/reflux #5. Hypertension #6. History of CVA #7. History of coronary arterial stenosis, previous stent placement #8. Anxiety Plan: Continue current medical treatment, incentive spirometry to the bedside, postoperative chest x-ray has been reviewed, hemodynamically patient stable, antibiotics and pain management per CT surgery, encourage deep breathing and coughing, continue IV fluids, home medications have been reordered, repeat chest x-ray in the morning, repeat blood work in the morning, will await results of the pathology. Continue breathing treatments. I performed a history & physical examination of the patient and discussed their management with my nurse practitioner, Amie Petit. I reviewed the nurse practitioner's note and agree with the documented findings and plan of care. Lung sounds are positive for a few scattered wheezes throughout the lung escobar. The findings and the impression was discussed with the patient. I attest to the documentation by the nurse practitioner. Time with Patient: Greater than 30
[2019-07-11] MEDS: HEPARIN SODIUM,PORCINE 5,000 UNIT/ML 1 ML VIAL SQ SCH (15:53)
[2019-07-11] MEDS: GABAPENTIN 300 MG CAP PO SCH ×2 (15:54→21:59)
[2019-07-11] MEDS: busPIRone HCl 10 MG TAB PO SCH ×2 (15:54→22:00)
[2019-07-11] MEDS: LISINOPRIL 10 MG TAB PO SCH (16:18)
[2019-07-11] MEDS: HYDROcodone/APAP 7.5-325MG 1 EACH TAB PO PRN (20:14)
[2019-07-11] MEDS: ATORVASTATIN 40 MG TAB PO SCH (22:00)
[2019-07-11] MEDS: MORPHINE SULFATE 4 MG/ML SYRINGE IVP PRN (22:26)
[2019-07-12] MEDS: KETOROLAC 30 MG/ML 1 ML VIAL IVP SCH ×5 (00:09→23:57)
[2019-07-12] MEDS: HEPARIN SODIUM,PORCINE 5,000 UNIT/ML 1 ML VIAL SQ SCH ×4 (00:09→23:57)
--- NOTE | 2019-07-12 00:51 | P.CONS ---
History of Present Illness - Reason for Consult Consult date: 07/11/19 - History of Present Illness Patient is a 62-year-old female with a PMH of ?Afib (on Coumadin), COPD, history of tobacco abuse, history of CVA, hypertension, hyperlipidemia, and coronary artery disease with history of MIs was admitted to the hospital for scheduled to stop it right upper lobectomy for a right upper lobe lung mass. The patient follows with Dr. Silver in the pulmonary clinic and was discovered to have nod ules in the right upper lobe. The patient had previously undergone transbronchial nodule biopsies in 05/2019, which were nondiagnostic. He subsequently had undergone a PET scan on 05/10/2019 which was concerning for both nodules being malignant. The patient underwent the procedure uneventfully earlier today with a right upper lobectomy and mediastinal lymph node dissection. The patient was seen in the medical ICU postoperatively. She reported continued pain, especially with deep breathing, at 8/10 at the time of the interview. She denied fever, chills, nausea, or abdominal pain. Review of Systems Pertinent positives and negatives as discussed in HPI, a complete review of systems was performed and all other systems are negative. Past Medical History Past Medical History: Cancer, Heart Failure, COPD, CVA/TIA, GERD/Reflux, Hyperlipidemia, Hypertension, Myocardial Infarction ([place]), Osteoarthritis (OA) Additional Past Medical History / Comment(s): "STATES HEART SKIPS BEATS", HX OF [place] X2 (1ST UNKNOWN DATE, 2009)., LUNG CANCER PER PATIENT,. pain occurs at times in back and rt arm, shoulders,neck and hips, jun knees and spinal stenosis Last Myocardial Infarction Date:: 2009 History of Any Multi-Drug Resistant Organisms: None Reported Past Surgical History: Appendectomy, Cholecystectomy, Heart Catheterization With Stent, Hysterectomy, Orthopedic Surgery, Tubal Ligation Additional Past Surgical History / Comment(s): RIGHT ANKLE, EGD, heart stent x2 2009,2013 Past Anesthesia/Blood Transfusion Reactions: No Reported Reaction Date of Last Stent Placement:: 2013 Additional Past Alcohol Use History / Comment(s): SMOKING SINCE 15 YRS OLD SMOKES 1/2PPD cutting down - Past Family History Brother(s) Family Medical History: Cancer Additional Family Medical History / Comment(s): ESOPHAGEAL CANCER Sister(s) Family Medical History: Blood Disorder, Deep Vein Thrombosis (DVT), Pulmonary Embolus Additional Family Medical History / Comment(s): 1 SISTER HAD BLOOD DISORDER AND FROM CLOT. 1 SISTER HAD DVT. 1 SISTER HAD PE. Medications and Allergies Home Medications Medication Instructions Recorded Confirmed Type Albuterol Inhaler [Ventolin Hfa 1 - 2 puff INHALATION Q6HR PRN 01/02/17 07/11/19 History Inhaler] Citalopram Hydrobromide [CeleXA] 40 mg PO DAILY 01/02/17 07/11/19 History Isosorbide Mononitrate ER [Imdur] 60 mg PO DAILY 01/02/17 07/11/19 History busPIRone HCL 15 mg PO TID 01/02/17 07/11/19 History HYDROcodone/APAP 7.5-325MG [[place] 1 each PO Q4H PRN #60 tab 03/06/17 07/11/19 Rx 7.5] Lisinopril [Zestril] 10 mg PO HS 05/27/19 07/11/19 History Metoprolol Succinate (ER) [Toprol 50 mg PO DAILY 05/27/19 07/11/19 History Xl] Warfarin [Coumadin] 5 mg PO SUTUTH 05/27/19 07/11/19 History Warfarin [Coumadin] 7.5 mg PO MOWEFRSA 05/27/19 07/11/19 History Atorvastatin [Lipitor] 40 mg PO HS 07/03/19 07/11/19 History Cholecalciferol [Vitamin D3 (25 5,000 unit PO DAILY 07/03/19 07/11/19 History Mcg = 1000 Iu)] Gabapentin [Neurontin] 300 mg PO TID 07/03/19 07/11/19 History Pantoprazole Sodium [Protonix] 40 mg PO DAILY 07/03/19 07/11/19 History Allergies Allergy/AdvReac Type Severity Reaction Status Date / Time ibuprofen [From Motrin] AdvReac Unknown Nausea & Verified 07/11/19 06:31 Vomiting tetracycline AdvReac Unknown Nausea & Verified 07/11/19 06:31 Vomiting Physical Exam Vitals: Vital Signs Temp Pulse Pulse Pulse Resp BP BP 07/11/19 20:52 72 07/11/19 20:31 74 07/11/19 19:00 75 15 107/66 07/11/19 18:45 71 19 123/64 07/11/19 18:30 70 20 108/63 07/11/19 18:15 69 19 112/59 07/11/19 18:00 71 23 105/55 07/11/19 17:45 69 19 102/54 07/11/19 17:30 70 20 101/54 07/11/19 17:15 71 20 99/52 07/11/19 17:00 73 20 105/55 07/11/19 16:45 74 20 102/58 07/11/19 16:30 74 16 87/52 07/11/19 16:15 72 16 97/51 07/11/19 16:00 99 F 74 21 101/78 07/11/19 15:45 73 20 95/64 07/11/19 15:33 71 07/11/19 15:30 70 16 97/63 07/11/19 15:15 73 17 100/65 07/11/19 15:00 69 18 99/61 07/11/19 14:45 71 16 94/55 07/11/19 14:30 71 16 94/58 07/11/19 14:15 69 18 101/62 07/11/19 14:00 72 17 111/55 07/11/19 13:45 74 21 99/57 07/11/19 13:30 74 18 89/53 07/11/19 13:15 70 16 86/57 07/11/19 13:00 71 17 83/57 07/11/19 12:36 98.1 F 70 18 83/54 07/11/19 12:15 73 16 110/63 07/11/19 11:45 72 16 108/59 07/11/19 11:30 72 16 117/56 07/11/19 11:15 97.2 F L 77 16 134/66 07/11/19 06:41 97.0 F L 51 L 16 138/77 Pulse Ox 07/11/19 20:52 07/11/19 20:31 07/11/19 19:00 94 L 07/11/19 18:45 96 07/11/19 18:30 97 07/11/19 18:15 97 07/11/19 18:00 97 07/11/19 17:45 97 07/11/19 17:30 97 07/11/19 17:15 96 07/11/19 17:00 96 07/11/19 16:45 96 07/11/19 16:30 94 L 07/11/19 16:15 95 07/11/19 16:00 94 L 07/11/19 15:45 95 07/11/19 15:33 07/11/19 15:30 94 L 07/11/19 15:15 95 07/11/19 15:00 95 07/11/19 14:45 95 07/11/19 14:30 94 L 07/11/19 14:15 94 L 07/11/19 14:00 95 07/11/19 13:45 93 L 07/11/19 13:30 92 L 07/11/19 13:15 93 L 07/11/19 13:00 93 L 07/11/19 12:36 92 L 07/11/19 12:15 93 L 07/11/19 11:45 95 07/11/19 11:30 95 07/11/19 11:15 95 07/11/19 06:41 97 Intake and Output 07/11/19 07/11/19 07/12/19 14:59 22:59 06:59 Intake Total 2080 950 Output Total 430 250 Balance 1650 700 Intake: IV 1500 Intake, IV Titration 580 830 Amount Dextrose 5%-0.45% NaCl 1, 80 280 000 ml @ 40 mls/hr IV . Q24H [facility] Rx#:[id number] Sodium Chloride 0.9% 500 500 ml 500 ml @ 999 mls/hr IV .Q31M ONE Rx#:[id number] Sodium Chloride 0.9% 500 500 ml 500 ml @ 999 mls/hr IV .Q31M [facility] Rx#:[id number] ceFAZolin 2 gm In Sodium 50 Chloride 0.9% 50 ml @ 100 mls/hr IVPB Q8HR [facility] Rx# :[id number] Oral 120 Output: Drainage 20 25 Right Chest 20 25 Urine 310 225 Estimated Blood Loss 100 Other: Voiding Method Indwelling Catheter Indwelling Catheter General: non toxic, in mild distress from pain, appears at stated age Derm: no unusual rashes/lesions no unusual ecchymoses, warm, dry Head: atraumatic, normocephalic, symmetric Eyes: EOMI, no lid lag, anicteric sclera, pupils equal round reactive to light ENT: Nose and ears atraumatic, no thrush, no pharyngeal erythema Neck: No thyromegaly, no cervical lymphadenopathy, trachea midline, supple Mouth: no lip lesion, mucus membranes moist Cardiovascular: S1S2 reg, no murmur, positive posterior tibial pulse bilateral, no edema, capillary refill less than 2 seconds Lungs: CTA bilateral, no rhonchi, no rales , no accessory muscle use, R sided chest wall in place Abdominal: soft, nontender to palpation, no guarding, no appreciable organomegaly, normal bowel sounds Ext: no gross muscle atrophy, no focal neuro deficits noted Neuro: CN II-XI grossly intact, light touch intact all 4 extremities, finger to nose within normal limits, Psych: Alert, oriented, appropriate affect Results CBC & Chem 7: 07/11/19 06:50 Labs: Abnormal Lab Results - Last 24 Hours (Table) 07/11/19 07/11/19 07/11/19 Range/Units 06:50 12:35 13:57 PT 13.3 H (9.0-12.0) sec INR 1.3 H (<1.2) ABG pH 7.32 L (7.35-7.45) ABG pCO2 50 H (35-45) mmHg ABG pO2 82 L (83-108) mmHg ABG Total CO2 27 H (19-24) mmol/L POC Glucose (mg/dL) 123 H (75-99) mg/dL Assessment and Plan Plan: Pulmonary nodules involving RUL s/p thorascopic right upper lobectomy with mediastinal lymph node dissection -Pulmonary medicine recommendations appreciated -Management including pain control as per surgery Chronic conditions: ?Afib, COPD, CAD, HLD, hx of [place], HTN, GERD, tobacco abuse -DuoNeb's as needed and [id number] -Continue with home meds: Lipitor, Imdur, Lisinopril, Toprol -Pt reports that she was diagnosed with an abnormal rhythm last year and was started on Coumadin, which she last took 5 days ago (upon instruction of the surgeons). Will defer to Surgery service regarding re-starting Coumadin. RN will notify surgeon. DVT prophylaxis -As per surgery -Currently on heparin subcu
[2019-07-12] MEDS: HYDROcodone/APAP 7.5-325MG 1 EACH TAB PO PRN ×5 (01:06→21:24)
[2019-07-12] MEDS: MORPHINE SULFATE 4 MG/ML SYRINGE IVP PRN (04:47)
[2019-07-12 05:22] LABS: Basophils # (A) 0.2 k/uL (0-0.2); Basophils % (A) 3 %; Eosinophils # (A) 0.1 k/uL (0-0.7); Eosinophils % (A) 1 %; HCT 35.8 % (34.0-46.0); HGB 11.2 gm/dL (11.4-16.0); Lymphocytes # (A) 1.8 k/uL (1.0-4.8); Lymphocytes % (A) 24 %; MCH 28.4 pg (25.0-35.0); MCHC 31.2 g/dL (31.0-37.0); MCV 91.1 fL (80.0-100.0); Mean Platelet Volume 7.8; Monocytes # (A) 0.5 k/uL (0-1.0); Monocytes % (A) 7 %; Neutrophils # (A) 4.7 k/uL (1.3-7.7); Neutrophils % (A) 64 %; Platelet Count 259 k/uL (150-450); RBC 3.93 m/uL (3.80-5.40); RDW 13.5 % (11.5-15.5); WBC 7.4 k/uL (3.8-10.6)
[2019-07-12 05:27] LABS: INR 1.2 (<1.2); Prothrombin Time 12.4 sec (9.0-12.0)
[2019-07-12 05:36] LABS: Calcium 8.2 mg/dL (8.4-10.2); Potassium 4.3 mmol/L (3.5-5.1)
[2019-07-12] MEDS: PANTOPRAZOLE 40 MG TABLET PO SCH (07:58)
[2019-07-12] MEDS: IPRATROPIUM-ALBUTEROL 3 ML NEB IH SCH ×4 (08:24→19:22)
--- NOTE | 2019-07-12 08:24 | P.PN ---
Subjective Progress Note Date: 07/12/19 Principal diagnosis: Right upper lobe spiculated lung mass, PET positive. Previous medical history of current tobacco dependence, mild COPD with preoperative FEV1 70% of predicted and DLCO 54% of predicted, coronary artery disease with myocardial infarction and previous stent placement, cryptogenic stroke in October 2018 and hypercoagulable state on Coumadin for anticoagulation, hypertension, hyperlipidemia, chronic heart failure, marijuana use, anxiety, obesity, significant family history of pulmonary embolism and DVT. POD #1 robotic assisted thoracoscopic right upper lobectomy with mediastinal lymph node dissection The patient is currently sitting up in the recliner in the intensive care unit as a cardiac stepdown overflow patient. She is in no acute distress. She does complain of pain at her chest tube site made worse with deep inspiration. Remains hemodynamically stable in normal sinus rhythm. Right pleural chest tube placed to waterseal yesterday afternoon, no air leak present. No new complaints. Objective - Vital Signs Vital signs: Vital Signs Temp 98.0 F 07/12/19 03:00 Pulse 71 07/12/19 07:00 Resp 16 07/12/19 07:00 BP 113/57 07/12/19 07:00 Pulse Ox 95 07/12/19 07:00 Intake & Output 07/11/19 07/12/19 07/12/19 18:59 06:59 18:59 Intake Total 2870 400 Output Total 555 435 Balance 2315 -35 Weight 108.1 kg Intake: IV 1500 Intake, IV Titration 1250 400 Amount Dextrose 5%-0.45% NaCl 1, 200 400 000 ml @ 40 mls/hr IV . Q24H [facility] Rx#:[id number] Sodium Chloride 0.9% 500 500 ml 500 ml @ 999 mls/hr IV .Q31M [facility] Rx#:[id number] Sodium Chloride 0.9% 500 500 ml 500 ml @ 999 mls/hr IV .Q31M [facility] Rx#:[id number] ceFAZolin 2 gm In Sodium 50 Chloride 0.9% 50 ml @ 100 mls/hr IVPB Q8HR [facility] Rx# :[id number] Oral 120 Output: Drainage 45 70 Right Chest 45 70 Urine 410 365 Estimated Blood Loss 100 Other: Voiding Method Indwelling Catheter Indwelling Catheter - Constitutional General appearance: Present: cooperative, no acute distress, obese - Respiratory Details: Lungs sounds diminished with rhonchi present. Respirations even, nonlabored. Currently on 2 L nasal cannula with oxygen saturation 96%. Only able to achieve 750 mL on her incentive spirometry. Weak cough. Right pleural chest tube to w aterseal, 70 mL thin serosanguineous drainage overnight, 220 mL since surgery, no air leak present, positive tidaling in the chest tube chamber. - Cardiovascular Details: S1, S2 present. Regular rate and rhythm, sinus rhythm on telemetry. Palpable peripheral pulses bilaterally. No edema present. No calf pain or tenderness noted. - Gastrointestinal Gastrointestinal Comment(s): Abdomen soft, nontender, nondistended. Active bowel sounds present 4 quadrants. Tolerating diet. - Genitourinary Genitourinary Comment(s): Bruce was present this morning with 240 mL clear yellow urine overnight. Removed this morning, due to void - Integumentary Integumentary Comment(s): Skin is warm and dry with evidence of good perfusion. - Neurologic Neurologic: Present: CNII-XII intact - Musculoskeletal Musculoskeletal: Present: strength equal bilaterally - Psychiatric Psychiatric: Present: A&O x's 3, appropriate affect, intact judgment & insight - Allied health notes Allied health notes reviewed: nursing - Labs CBC & Chem 7: 07/12/19 04:38 07/12/19 04:38 Labs: Abnormal Lab Results - Last 24 Hours (Table) 07/11/19 07/11/19 07/12/19 Range/Units 12:35 13:57 04:38 Hgb 11.2 L (11.4-16.0) gm/dL PT (9.0-12.0) sec INR (<1.2) ABG pH 7.32 L (7.35-7.45) ABG pCO2 50 H (35-45) mmHg ABG pO2 82 L (83-108) mmHg ABG Total CO2 27 H (19-24) mmol/L Sodium (137-145) mmol/L Chloride (98-107) mmol/L Creatinine (0.52-1.04) mg/dL POC Glucose (mg/dL) 123 H (75-99) mg/dL Calcium (8.4-10.2) mg/dL 07/12/19 07/12/19 Range/Units 04:38 04:38 Hgb (11.4-16.0) gm/dL PT 12.4 H (9.0-12.0) sec INR 1.2 H (<1.2) ABG pH (7.35-7.45) ABG pCO2 (35-45) mmHg ABG pO2 (83-108) mmHg ABG Total CO2 (19-24) mmol/L Sodium 136 L (137-145) mmol/L Chloride 108 H (98-107) mmol/L Creatinine 1.16 H (0.52-1.04) mg/dL POC Glucose (mg/dL) (75-99) mg/dL Calcium 8.2 L (8.4-10.2) mg/dL - Imaging and Cardiology Chest x-ray: image reviewed Assessment and Plan Assessment: 1. Right upper lobe spiculated lung mass, PET positive, status post robotic assisted thoracoscopic right upper lobectomy with mediastinal lymph node dissection 2. Current tobacco dependence 3. Mild COPD with preoperative FEV1 70% of predicted and DLCO 54% of protected 4. History of coronary artery disease with myocardial infarction and previous stent placement 5. Cryptogenic stroke in October 2018, hypercoagulable state on Coumadin for anticoagulation 6. Hypertension 7. Hyperlipidemia 8. Chronic heart failure 9. Marijuana use 10. Anxiety 11. Obesity 12. Significant family history of pulmonary embolism and DVT Plan: 1. Continue right pleural chest tube to water seal for another 24 hours 2. Wean O2 as tolerated. Encourage incentive spirometry 10 times every hour while awake 3. Increase activity, ambulate as tolerated 4. Pain control with current medication regimen 5. Will monitor daily x-rays 6. Bronchodilators per pulmonology 7. Management of other comorbid conditions per primary service 8. Will call patient's primary care physician and slot supervisor regarding Couma din vs. Eliquis. Patient states cardiology was going to transition off Coumadin and start Eliquis. 9. More recommendations to follow Time with Patient: Greater than 30
[2019-07-12] MEDS ORDERED: ISOSORBIDE MONONITRATE ER 60 MG TAB.ER.24H PO SCH (09:00)
[2019-07-12] MEDS: CHOLECALCIFEROL 1,000 UNIT TAB PO SCH (09:06)
[2019-07-12] MEDS: busPIRone HCl 10 MG TAB PO SCH ×3 (09:06→21:24)
[2019-07-12] MEDS: GABAPENTIN 300 MG CAP PO SCH ×3 (09:07→21:24)
[2019-07-12] MEDS: METOPROLOL SUCCINATE (ER) 50 MG TAB.ER.24H PO SCH (09:07)
[2019-07-12] MEDS: CITALOPRAM HYDROBROMIDE 20 MG TAB PO SCH (09:07)
--- NOTE | 2019-07-12 09:12 | XR ---
EXAMINATION TYPE: XR chest 1V DATE OF EXAM: 07/12/2019 COMPARISON: 07/11/2019 HISTORY: Postsurgical follow-up. Right lobectomy. Tube placement. TECHNIQUE: Single frontal view of the chest is obtained. FINDINGS: The trace right apical pneumothorax persists and is unchanged from the prior with approxim ately 1 cm a right apical maximal pleural separation. Right thoracostomy tube is unchanged. Cardiomed iastinal silhouette is again enlarged. Blunting of the left costophrenic angle related to a trace ple ural effusion. Central pulmonary vascular prominence. IMPRESSION: Trace left pleural effusion and central pulmonary vascular prominence have developed in the interim. New early fluid overload. Stable trace right apical pneumothorax and similar position of the right thoracostomy tube.
--- NOTE | 2019-07-12 09:17 | P.PN ---
Subjective Progress Note Date: 07/12/19 Principal diagnosis: Right upper lobe mass, status post right upper lobectomy with mediastinal lymph node removal 63-year-old white female patient with history of COPD, former smoker, hypertension, coronary arterial sclerosis, previous history of CVA, anxiety, who follows with Dr. Gamez in the pulmonary clinic, was discovered to have 2 suspicious right upper lobe nodules one measuring 17 x 15 x 18 mm and another nodule measuring 12 x 9 x 8 mm in October 2018 at [facility] in [place] when she was hospitalized for a right-sided CVA. Patient had bronchoscopy and biopsy of the above-mentioned right upper lobe nodules at [facility], and it was nondiagnostic. Patient then underwent navigational bronchoscopy and multiple right upper lobe transbronchial biopsies of right upper lobe nodule on 05/28/2019 and the biopsies were nondiagnostic. Patient had a PET scan done on 05/10/2019 which showed slightly spiculated 2.3 x 2.0 cm hypermetabolic right upper lobe nodule with max SUV of 18.12. Immediately inferior to this there was a smaller slightly lobulated 1.2 x 1.0 cm right upper lobe nodule with SUV of 9.54. No additional areas of hypermetabolic uptake were identified in the opposite left lung or the hilar region or mediastinum to suggest abnormal a denopathy. As such both nodules were suspicious for malignancy. Patient was referred to thoracic surgery for surgical resection, and on 07/11/2019 patient underwent robotic-assisted thoracoscopic right upper lobectomy with mediastinal lymph node dissection of lymph node stations 4R, 7, 8 hour, 9 are, 10 R, and 11 RR. Frozen sections of bronchial margins were negative. Patient is seen in the postoperative period in the intensive care unit, she is a selective overflow, she is lethargic, but easily arousable, having moderate amount of pain in the incision in the right chest. Right chest tube is in place, with no evidence of air leak, small amount of serosanguineous drainage in the chest tube, it is connected to wall suction. Postoperative chest x-ray showed postsurgical changes of a right upper lobectomy with small right-sided pneumothorax and appropriately positioned thoracostomy tube On 07/12/2019 patient seen in follow-up in intensive care unit, since postoperative day 1, status post right upper lobectomy and mediastinal lymph node dissection. Doing well, she is currently on 3 L of oxygen with pulse ox of 86%, sinus rhythm with a rate of 78, blood pressure is stable, 112/66. Hemodynamically stable. Right-sided chest tube to waterseal, and there is a small air leak with deep inspiration, small amount of serosanguineous output, which is thin on today's exam. Lung sounds basilar crackles at the right lower base. IS effort is 500 mL on today's evaluation. Today's chest x-ray has been reviewed showing postsurgical changes in the right upper lobe, and the right-sided thoracostomy tube in place. No pneumothorax appreciated on today's chest x-ray. Today's labs have been reviewed, showing white blood cell count of 7.4, hemoglobin of 11.2, INR is 1.2, electrolytes were unremarkable, BUN 16, and creatinine is 1.16. Objective - Vital Signs Vital signs: Vital Signs Temp 98.0 F 07/12/19 03:00 Pulse 78 07/12/19 08:38 Resp 16 07/12/19 07:00 BP 113/57 07/12/19 07:00 Pulse Ox 95 07/12/19 07:00 Intake & Output 07/11/19 07/12/19 07/12/19 18:59 06:59 18:59 Intake Total 2870 400 Output Total 555 435 Balance 2315 -35 Weight 108.1 kg Intake: IV 1500 Intake, IV Titration 1250 400 Amount Dextrose 5%-0.45% NaCl 1, 200 400 000 ml @ 40 mls/hr IV . Q24H [facility] Rx#:[id number] Sodium Chloride 0.9% 500 500 ml 500 ml @ 999 mls/hr IV .Q31M [facility] Rx#:[id number] Sodium Chloride 0.9% 500 500 ml 500 ml @ 999 mls/hr IV .Q31M [facility] Rx#:[id number] ceFAZolin 2 gm In Sodium 50 Chloride 0.9% 50 ml @ 100 mls/hr IVPB Q8HR [facility] Rx# :[id number] Oral 120 Output: Drainage 45 70 Right Chest 45 70 Urine 410 365 Estimated Blood Loss 100 Other: Voiding Method Indwelling Catheter Indwelling Catheter - Exam GENERAL EXAM: Alert and oriented 3, very pleasant 63-year-old white female, on 3 L of oxygen with a pulse ox of 96% comfortable in no apparent distress. HEAD: Normocephalic/atraumatic. EYES: Normal reaction of pupils, equal size. Conjunctiva pink, sclera white. NOSE: Clear with pink turbinates. THROAT: No erythema or exudates. NECK: No masses, no JVD, no thyroid enlargement, no adenopathy. CHEST: No chest wall deformity. Symmetrical expansion. Right lateral chest chest tube is in place, with small amount of serosanguineous output in the Pleur-evac, off the wall suction, evidence of air leak with deep inspiration LUNGS: Equal air entry with a few scattered wheezes, but no rhonchi or dullness. CVS: Regular rate and rhythm, normal S1 and S2, no gallops, no murmurs, no rubs ABDOMEN: Soft, nontender. No hepatosplenomegaly, normal bowel sounds, no guarding or rigidity. EXTREMITIES: No clubbing, no edema, no cyanosis, 2+ pulses and upper and lower extremities. MUSCULOSKELETAL: Muscle strength and tone normal. SPINE: No scoliosis or deformity SKIN: No rashes CENTRAL NERVOUS SYSTEM: Alert and oriented -3. No focal deficits, tone is normal in all 4 extremities. PSYCHIATRIC: Alert and oriented -3. Appropriate affect. Intact judgment and insight. - Labs CBC & Chem 7: 07/12/19 04:38 07/12/19 04:38 Labs: Abnormal Lab Results - Last 24 Hours (Table) 07/11/19 07/11/19 07/12/19 Range/Units 12:35 13:57 04:38 Hgb 11.2 L (11.4-16.0) gm/dL PT (9.0-12.0) sec INR (<1.2) ABG pH 7.32 L (7.35-7.45) ABG pCO2 50 H (35-45) mmHg ABG pO2 82 L (83-108) mmHg ABG Total CO2 27 H (19-24) mmol/L Sodium (137-145) mmol/L Chloride (98-107) mmol/L Creatinine (0.52-1.04) mg/dL POC Glucose (mg/dL) 123 H (75-99) mg/dL Calcium (8.4-10.2) mg/dL 07/12/19 07/12/19 Range/Units 04:38 04:38 Hgb (11.4-16.0) gm/dL PT 12.4 H (9.0-12.0) sec INR 1.2 H (<1.2) ABG pH (7.35-7.45) ABG pCO2 (35-45) mmHg ABG pO2 (83-108) mmHg ABG Total CO2 (19-24) mmol/L Sodium 136 L (137-145) mmol/L Chloride 108 H (98-107) mmol/L Creatinine 1.16 H (0.52-1.04) mg/dL POC Glucose (mg/dL) (75-99) mg/dL Calcium 8.2 L (8.4-10.2) mg/dL Assessment and Plan Plan: Assessment: #1. 2 Right upper lobe spiculated nodules with hypermetabolic uptake on the PET scan, and to bronchoscopy with biopsies were nondiagnostic, status post thoracoscopic robotic-assisted right upper lobectomy with mediastinal lymph node dissection, with the lymph node stations 4R, 7, 8, 9 hour, 10 R, 11 R, frozen section of bronchial margin were negative, postoperative day 1 #2. Chronic and ongoing history of smoking #3. Mild chronic obstructive pulmonary disease with FEV1 of 70% of predicted and fusion capacity of 54% of predicted #4. GERD/reflux #5. Hypertension #6. History of CVA #7. History of coronary arterial stenosis, previous stent placement #8. Anxiety Plan: Continue encouraging deep breathing and coughing, today's chest x-ray has been reviewed, no pneumothorax appreciated on today's chest x-ray. The chest tube d oes have a small air leak with deep inspiration, vital signs are stable, awaiting results of the pathology, chest tube is to stay in for another 24 hours, CT surgery is following, I performed a history & physical examination of the patient and discussed their management with my nurse practitioner, Amie Petit. I reviewed the nurse practitioner's note and agree with the documented findings and plan of care. Lung sounds are positive for a few scattered wheezes throughout the lung escobar. The findings and the impression was discussed with the patient. I attest to the documentation by the nurse practitioner. Time with Patient: Less than 30
[2019-07-12] MEDS: methylPREDNISolone SOD SUCCI 40 MG/ML 1 ML VIAL IV SCH ×2 (11:29→21:23)
[2019-07-12] MEDS: ISOSORBIDE MONONITRATE ER 60 MG TAB.ER.24H PO SCH (11:30)
--- NOTE | 2019-07-12 17:23 | P.PN ---
Subjective Progress Note Date: 07/12/19 Principal diagnosis: Pleuritic pain, shortness of breath Patient was seen and examined. No acute events overnight. Patient reports improvement in her breathing and pleuritic chest pain since yesterday. Pain is 7 out of 10 in severity. She is currently on Teague and tolerating the pain well. No IV opiate medications. She denies any palpitations. No nausea or vomiting. No fever or chills. Objective - Vital Signs Vital signs: Vital Signs Temp 97.9 F 07/12/19 15:57 Pulse 77 07/12/19 15:57 Resp 18 07/12/19 15:57 BP 138/69 07/12/19 15:57 Pulse Ox 96 07/12/19 15:57 Intake & Output 07/11/19 07/12/19 07/12/19 18:59 06:59 18:59 Intake Total 2870 400 600 Output Total 555 435 70 Balance 2315 -35 530 Weight 108.1 kg Intake: IV 1500 Intake, IV Titration 1250 400 Amount Dextrose 5%-0.45% NaCl 1, 200 400 000 ml @ 40 mls/hr IV . Q24H [facility] Rx#:[id number] Sodium Chloride 0.9% 500 500 ml 500 ml @ 999 mls/hr IV .Q31M [facility] Rx#:[id number] Sodium Chloride 0.9% 500 500 ml 500 ml @ 999 mls/hr IV .Q31M [facility] Rx#:[id number] ceFAZolin 2 gm In Sodium 50 Chloride 0.9% 50 ml @ 100 mls/hr IVPB Q8HR [facility] Rx# :[id number] Oral 120 600 Output: Chest Tube Drainage 50 Right Lateral Chest 50 Drainage 45 70 20 Right Chest 45 70 20 Urine 410 365 Estimated Blood Loss 100 Other: Voiding Method Indwelling Catheter Indwelling Catheter Toilet # Voids 1 - Exam General: [non toxic], [no distress], [appears at stated age] Derm: [warm], [dry] Head: [atraumatic], [normocephalic], [symmetric] Eyes: [EOMI], [no lid lag], [anicteric sclera] Mouth: [no lip lesion], [mucus membranes moist] Cardiovascular: [S1S2 reg], [no murmur], [positive posterior tibial pulse bilateral], [right-sided anterior lateral chest dressing clean dry and intact with chest tube intact] Lungs: [CTA bilateral], [no rhonchi, no rales] , [no accessory muscle use] Abdominal: [soft], [ nontender to palpation], [no guarding], [no appreciable organomegaly] Ext: [no gross muscle atrophy], [no edema], [no contractures] Neuro: [no focal neuro deficits] Psych: [Alert], [oriented], [appropriate affect] - Labs CBC & Chem 7: 07/12/19 04:38 07/12/19 04:38 Labs: Abnormal Lab Results - Last 24 Hours (Table) 07/12/19 07/12/19 07/12/19 Range/Units 04:38 04:38 04:38 Hgb 11.2 L (11.4-16.0) gm/dL PT 12.4 H (9.0-12.0) sec INR 1.2 H (<1.2) Sodium 136 L (137-145) mmol/L Chloride 108 H (98-107) mmol/L Creatinine 1.16 H (0.52-1.04) mg/dL Calcium 8.2 L (8.4-10.2) mg/dL Assessment and Plan Assessment: Right upper lobe spiculated nodule status post thoracoscopic robotic-assisted right upper lobectomy with mediastinal lymph node dissection POD 1 COPD Hypertension History of CVA and CAD Abnormal heart rhythm Elevated creatinine POD 1. Plans: Right chest tube continued to waterseal. Follow pathology repor t. Repeat chest x-ray tomorrow morning. DuoNeb scheduled and as needed for shortness of breath and wheezing. 2 doses of IV Solu-Medrol ordered. Management as per cardiothoracic surgery. Pulmonology also following. Plans: Management as above. BP 138/69. Plans: Continue lisinopril. Continue metoprolol and Imdur. Monitor vitals, adjust medications as necessary. Plans: Continue Lipitor. Continue beta michael. Questionable history of atrial fibrillation as per patient. Plans: Order EKG. Continue metoprolol. Coumadin held as per CT surgery. Start Eliquis when OK by CT surgery. Creatinine 1.16. Likely prerenal from dehydration. Plans: Encourage hydration by mouth. Repeat BMP tomorrow morning.
[2019-07-12] MEDS: CIPROFLOXACIN HCL 500 MG TAB PO SCH (21:23)
[2019-07-12] MEDS: LISINOPRIL 10 MG TAB PO SCH (21:24)
[2019-07-12] MEDS: ATORVASTATIN 40 MG TAB PO SCH (21:26)
[2019-07-13] MEDS: HYDROcodone/APAP 7.5-325MG 1 EACH TAB PO PRN ×6 (03:46→23:51)
[2019-07-13] MEDS: PANTOPRAZOLE 40 MG TABLET PO SCH (06:11)
[2019-07-13] MEDS: KETOROLAC 30 MG/ML 1 ML VIAL IVP SCH ×4 (06:11→23:46)
--- NOTE | 2019-07-13 06:48 | XR ---
EXAMINATION TYPE: XR chest 2V DATE OF EXAM: 07/13/2019 HISTORY: post lobectomy. REFERENCE: Previous study dated 07/12/2019. FINDINGS: A right pleural drain remains in place. There continues to be a small, right apical pneumot horax. Small amount of worsening subcutaneous emphysema on the right. There is apparent elevation rig ht hemidiaphragm. The heart is minimally prominent. Small left effusion as well as some bibasilar ate lectasis. There is a dextroscoliosis which may be, in part, due to positioning. IMPRESSION: 1. SMALL, RESIDUAL, RIGHT APICAL PNEUMOTHORAX. 2. WORSENING APPARENT ELEVATION RIGHT HEMIDIAPHRAGM. 3. MILD CARDIOMEGALY. 4. BIBASILAR ATELECTASIS. 5. SMALL, LEFT EFFUSION.
[2019-07-13 07:47] LABS: Calcium 9.2 mg/dL (8.4-10.2); Potassium 4.6 mmol/L (3.5-5.1)
[2019-07-13] MEDS: IPRATROPIUM-ALBUTEROL 3 ML NEB IH SCH ×4 (08:17→19:56)
--- NOTE | 2019-07-13 08:19 | P.PN ---
Subjective Progress Note Date: 07/13/19 Principal diagnosis: Right upper lobe spiculated lung mass, PET positive. Previous medical history of current tobacco dependence, mild COPD with preoperative FEV1 70% of predicted and DLCO 54% of predicted, coronary artery disease with myocardial infarction and previous stent placement, cryptogenic stroke in October 2018 and hypercoagulable state on Coumadin for anticoagulation, hypertension, hyperlipidemia, chronic heart failure, marijuana use, anxiety, obesity, significant family history of pulmonary embolism and DVT. No history of atrial fibrillation per cardiology. ECOG score=1 POD #2 robotic assisted thoracoscopic right upper lobectomy with mediastinal lymph node dissection The patient is currently sitting up in bed on the cardiac stepdown unit eating breakfast. She is in no acute distress. She does complain of pain at her chest tube site made worse with deep inspiration. Remains hemodynamically stable in normal sinus rhythm. States she has been up ambulating without difficulty. Right pleural chest tube continues to waterseal yesterday afternoon, no air leak present. No new complaints. Objective - Vital Signs Vital signs: Vital Signs Temp 98.0 F 07/13/19 04:00 Pulse 78 07/13/19 04:00 Resp 18 07/13/19 04:00 BP 171/83 07/13/19 04:00 Pulse Ox 95 07/13/19 04:00 Intake & Output 07/12/19 07/13/19 07/13/19 18:59 06:59 18:59 Intake Total 600 1147 Output Total 670 1200 90 Balance -70 -53 -90 Weight 101.4 kg Intake: IV 10 Invasive Line 4 10 Oral 600 1137 Output: Chest Tube Drainage 50 150 90 Right Lateral Chest 50 150 90 Drainage 20 200 Right Chest 20 200 Urine 600 850 Other: Voiding Method Toilet Toilet # Voids 1 - Constitutional General appearance: Present: cooperative, no acute distress - Respiratory Details: Lungs sounds diminished with wheezing present. Respirations even, nonlabored. Currently on room air with oxygen saturation 95%. Able to achieve 1000 mL on her incentive spirometry. Weak cough. Right pleural chest tube to waterseal, 110 mL thin serosanguineous drainage overnight, 300 mL in the last 24 hours, no air leak present, positive tidaling in the chest tube chamber. - Cardiovascular Details: S1, S2 present. Regular rate and rhythm, sinus rhythm on telemetry. Palpable peripheral pulses bilaterally. No edema present. No calf pain or tenderness noted. - Gastrointestinal Gastrointestinal Comment(s): Abdomen soft, nontender, nondistended. Active bowel sounds present 4 quadrants. Tolerating diet. - Genitourinary Genitourinary Comment(s): Continues to void - Integumentary Integumentary Comment(s): Skin is warm and dry with evidence of good perfusion. - Neurologic Neurologic: Present: CNII-XII intact - Musculoskeletal Musculoskeletal: Present: gait normal, strength equal bilaterally - Psychiatric Psychiatric: Present: A&O x's 3, appropriate affect, intact judgment & insight - Allied health notes Allied health notes reviewed: nursing - Labs CBC & Chem 7: 07/12/19 04:38 07/13/19 06:08 Labs: Abnormal Lab Results - Last 24 Hours (Table) 07/13/19 Range/Units 06:08 BUN 18 H (7-17) mg/dL Glucose 145 H (74-99) mg/dL - Imaging and Cardiology Chest x-ray: report reviewed, image reviewed Assessment and Plan Assessment: 1. Right upper lobe spiculated lung mass, PET positive, status post robotic assisted thoracoscopic right upper lobectomy with mediastinal lymph node dissection, frozen section negative, final pathology still pending 2. Current tobacco dependence 3. Mild COPD with preoperative FEV1 70% of predicted and DLCO 54% of protected 4. History of coronary artery disease with myocardial infarction and previous stent placement 5. Cryptogenic stroke in October 2018, hypercoagulable state on Coumadin for anticoagulation. No history of atrial fibrillation per Dr. Green, her digital media director 6. Hypertension 7. Hyperlipidemia 8. Chronic heart failure 9. Marijuana use 10. Anxiety 11. Obesity 12. Significant family history of pulmonary embolism and DVT Plan: 1. Continue right pleural chest tube to water seal for another 24 hours 2. Encourage incentive spirometry 10 times every hour while awake 3. Increase activity, ambulate as tolerated 4. Pain control with current medication regimen 5. Will monitor daily x-rays 6. Bronchodilators per pulmonology 7. Management of other comorbid conditions per primary service 8. Discussed anticoagulation with patient's digital media director, no history of atrial fibrillation, defers to primary care physician. Call made to primary care physician, awaiting return phone call. Will hold off on anticoagulation decision for now. 9. More recommendations to follow Time with Patient: Greater than 30
[2019-07-13] MEDS: busPIRone HCl 10 MG TAB PO SCH ×3 (08:38→21:22)
[2019-07-13] MEDS: GABAPENTIN 300 MG CAP PO SCH ×3 (08:38→21:22)
[2019-07-13] MEDS: CHOLECALCIFEROL 1,000 UNIT TAB PO SCH (08:38)
[2019-07-13] MEDS: METOPROLOL SUCCINATE (ER) 50 MG TAB.ER.24H PO SCH (08:38)
[2019-07-13] MEDS: CIPROFLOXACIN HCL 500 MG TAB PO SCH ×2 (08:38→19:46)
[2019-07-13] MEDS: CITALOPRAM HYDROBROMIDE 20 MG TAB PO SCH (08:38)
[2019-07-13] MEDS: HEPARIN SODIUM,PORCINE 5,000 UNIT/ML 1 ML VIAL SQ SCH ×3 (08:38→23:47)
--- NOTE | 2019-07-13 11:07 | P.PN ---
Subjective Progress Note Date: 07/13/19 Patient is postop day #2 following a robotic-assisted right upper lobe resection and mediastinal lymph node dissection. Doing well. No specific complaints. Chest tube still in place. There is positive air leak. She is currently out of the intensive care unit. She is using incentive spirometer. His all within normal limits. The chest x-ray more residual right apical pneumothorax. There is some elevation of the right hemidiaphragm along with some cardiomegaly and atelectatic changes in lung bases. She is trying to utilize the incentive spirometer more often. She was bronchospastic and wheezy and she was given IV Solu-Medrol 2 doses yesterday. Objective - Vital Signs Vital signs: Vital Signs Temp 97.7 F 07/13/19 08:00 Pulse 79 07/13/19 08:28 Resp 18 07/13/19 08:00 BP 139/75 07/13/19 08:00 Pulse Ox 95 07/13/19 08:17 Intake & Output 07/12/19 07/13/19 07/13/19 18:59 06:59 18:59 Intake Total 600 1147 540 Output Total 670 1200 110 Balance -70 -53 430 Weight 101.4 kg Intake: IV 10 Invasive Line 4 10 Oral 600 1137 540 Output: Chest Tube Drainage 50 150 110 Right Lateral Chest 50 150 110 Drainage 20 200 Right Chest 20 200 Urine 600 850 Other: Voiding Method Toilet Toilet Toilet # Voids 1 - Exam GENERAL EXAM: Alert and oriented 3, very pleasant 63-year-old white female, on 3 L of oxygen with a pulse ox of 96% comfortable in no apparent distress. HEAD: Normocephalic/atraumatic. EYES: Normal reaction of pupils, equal size. Conjunctiva pink, sclera white. NOSE: Clear with pink turbinates. THROAT: No erythema or exudates. NECK: No masses, no JVD, no thyroid enlargement, no adenopathy. CHEST: No chest wall deformity. Symmetrical expansion. Right lateral chest chest tube is in place, with small amount of serosanguineous output in the Pleur-evac, off the wall suction, evidence of air leak with deep inspiration LUNGS: Equal air entry with a few scattered wheezes, but no rhonchi or dullness. CVS: Regular rate and rhythm, normal S1 and S2, no gallops, no murmurs, no rubs ABDOMEN: Soft, nontender. No hepatosplenomegaly, normal bowel sounds, no guarding or rigidity. EXTREMITIES: No clubbing, no edema, no cyanosis, 2+ pulses and upper and lower extremities. MUSCULOSKELETAL: Muscle strength and tone normal. SPINE: No scoliosis or deformity SKIN: No rashes CENTRAL NERVOUS SYSTEM: Alert and oriented -3. No focal deficits, tone is normal in all 4 extremities. PSYCHIATRIC: Alert and oriented -3. Appropriate affect. Intact judgment and insight. - Labs CBC & Chem 7: 07/12/19 04:38 07/13/19 06:08 Labs: Abnormal Lab Results - Last 24 Hours (Table) 07/13/19 Range/Units 06:08 BUN 18 H (7-17) mg/dL Glucose 145 H (74-99) mg/dL Assessment and Plan Plan: #1. 2 Right upper lobe spiculated nodules with hypermetabolic uptake on the PET scan, and to bronchoscopy with biopsies were nondiagnostic, status post thoracoscopic robotic-assisted right upper lobectomy with mediastinal lymph node dissection, with the lymph node stations 4R, 7, 8, 9 hour, 10 R, 11 R, frozen section of bronchial margin were negative, postoperative day 2, awaiting the path reports for now. The patient has a tiny apical pneumothorax. Intermittent air leak. Discussed the case with surgery. Not worried about that. Possible chest tube removal today. #2. Chronic and ongoing history of smoking #3. Mild chronic obstructive pulmonary disease with FEV1 of 70% of predicted and fusion capacity of 54% of predicted #4. GERD/reflux #5. Hypertension #6. History of CVA #7. History of coronary arterial stenosis, previous stent placement #8. Anxiety Plan Patient is postop day #2 Patient is adequate expansion of the right lung May consider removal of the right-sided chest tube today Continue using the incentive spirometer more aggressively Ambulate in the hallway Continue bronchodilators Adequate pain control.
[2019-07-13] MEDS: ISOSORBIDE MONONITRATE ER 60 MG TAB.ER.24H PO SCH (11:45)
--- NOTE | 2019-07-13 14:23 | P.PN ---
Subjective Progress Note Date: 07/13/19 Principal diagnosis: Mild right-sided chest discomfort Patient was seen and examined. No acute events overnight. Chest tube discontinued by cardiothoracic surgery this morning. Chest x-ray prior to chest tube being pulled out showed small right apical pneumothorax, elevation of the right hemidiaphragm, cardiomegaly and bibasilar atelectasis with small left effusion. Patient reports significant improvement in her chest pain and shortness of breath since the chest tube being pulled out. She rates the discomfort at 4 out of 5 in severity. She denies any shortness of breath and palpitations. No nausea or vomiting. No fever or chills. Objective - Vital Signs Vital signs: Vital Signs Temp 98.2 F 07/13/19 11:55 Pulse 76 07/13/19 12:24 Resp 18 07/13/19 11:55 BP 180/91 07/13/19 11:55 Pulse Ox 92 L 07/13/19 11:55 Intake & Output 07/12/19 07/13/19 07/13/19 18:59 06:59 18:59 Intake Total 600 1147 1340 Output Total 670 1200 410 Balance -70 -53 930 Weight 101.4 kg Intake: IV 10 Invasive Line 4 10 Oral 600 1137 1340 Output: Chest Tube Drainage 50 150 110 Right Lateral Chest 50 150 110 Drainage 20 200 Right Chest 20 200 Urine 600 850 300 Other: Voiding Method Toilet Toilet Toilet # Voids 1 1 - Exam General: [non toxic], [no distress], [appears at stated age] Derm: [warm], [dry] Head: [atraumatic], [normocephalic], [symmetric] Eyes: [EOMI], [no lid lag], [anicteric sclera] Mouth: [no lip lesion], [mucus membranes moist] Cardiovascular: [S1S2 reg], [no murmur], [positive posterior tibial pulse bilateral], [right-sided anterior lateral chest dressing clean dry and intact] Lungs: [Expiratory wheezing at the bases bilateral], [no rhonchi, no rales] , [no accessory muscle use] Abdominal: [soft], [ nontender to palpation], [no guarding], [no appreciable organomegaly] Ext: [no gross muscle atrophy], [no edema], [no contractures] Neuro: [no focal neuro deficits] Psych: [Alert], [oriented], [appropriate affect] - Labs CBC & Chem 7: 07/12/19 04:38 07/13/19 06:08 Labs: Abnormal Lab Results - Last 24 Hours (Table) 07/13/19 Range/Units 06:08 BUN 18 H (7-17) mg/dL Glucose 145 H (74-99) mg/dL Assessment and Plan Assessment: Right upper lobe spiculated nodule status post thoracoscopic robotic-assisted right upper lobectomy with mediastinal lymph node dissection POD 2 COPD Hypertension History of CVA and CAD Abnormal heart rhythm with EKG showing sinus arrhythmia POD 2. Plans: Right chest tube discontinued. Follow pathology report. Repeat chest x-ray tomorrow morning. DuoNeb scheduled and as needed for shortness of breath and wheezing. 2 doses of IV Solu-Medrol ordered for mild COPD exacerbation. Management as per cardiothoracic surgery. Pulmonology also following. Plans: Management as above. BP 180/91. Plans: Continue lisinopril. Continue metoprolol and Imdur. Monitor vitals, adjust medications as necessary. Plans: Continue Lipitor. Continue beta michael. Questionable history of atrial fibrillation as per patient. EKG shows sinus arrhythmia. Plans: Continue metoprolol. Coumadin held as per CT surgery. Per CT surgery note, her primary dial lathe operator is unaware of history of atrial fibrillation, attempting to contact PCP. [Patient has progressed well. Chest tube discontinued. Repeat chest x-ray tomorrow morning. Discharge planning as per cardiothoracic surgery. Likely DC on Monday.]
[2019-07-13] MEDS: NICOTINE 21MG/24HR PATCH TRANSDERM SCH (15:20)
[2019-07-13] MEDS: LISINOPRIL 10 MG TAB PO SCH (19:46)
[2019-07-13] MEDS: ATORVASTATIN 40 MG TAB PO SCH (19:46)
[2019-07-14] MEDS: KETOROLAC 30 MG/ML 1 ML VIAL IVP SCH ×3 (05:31→16:53)
[2019-07-14] MEDS: HYDROcodone/APAP 7.5-325MG 1 EACH TAB PO PRN ×3 (05:33→23:59)
[2019-07-14] MEDS: PANTOPRAZOLE 40 MG TABLET PO SCH (05:36)
--- NOTE | 2019-07-14 06:32 | XR ---
EXAMINATION TYPE: XR chest 2V DATE OF EXAM: 07/14/2019 HISTORY: post lobectomy. REFERENCE: Previous study dated 07/13/2019. FINDINGS: Tiny residual apical pneumothorax persists on the right. The right pleural drain has been r emoved. Heart size is upper limits of normal. There is chronic apparent elevation of the right hemidi aphragm. There is developing airspace disease of the right lung base. The left lung is clear. There i s mild vascular congestion. There is minimal subcutaneous emphysema. IMPRESSION: #1 TINY RESIDUAL APICAL PNEUMOTHORAX. 2. WORSENING RIGHT BASILAR AIRSPACE DISEASE. 3. MILD CARDIOMEGALY.
[2019-07-14 06:39] LABS: HCT 37.4 % (34.0-46.0); HGB 11.9 gm/dL (11.4-16.0); MCH 28.4 pg (25.0-35.0); MCHC 31.7 g/dL (31.0-37.0); MCV 89.5 fL (80.0-100.0); Mean Platelet Volume 7.5; Platelet Count 296 k/uL (150-450); RBC 4.18 m/uL (3.80-5.40); RDW 13.5 % (11.5-15.5); WBC 12.6 k/uL (3.8-10.6)
[2019-07-14 06:55] LABS: Calcium 9.3 mg/dL (8.4-10.2); Potassium 4.3 mmol/L (3.5-5.1)
--- NOTE | 2019-07-14 07:53 | P.PN ---
Subjective Progress Note Date: 07/14/19 Principal diagnosis: Right upper lobe spiculated lung mass, PET positive. Previous medical history of current tobacco dependence, mild COPD with preoperative FEV1 70% of predicted and DLCO 54% of predicted, coronary artery disease with myocardial infarction and previous stent placement, cryptogenic stroke in October 2018 and hypercoagulable state on Coumadin for anticoagulation, hypertension, hyperlipidemia, chronic heart failure, marijuana use, anxiety, obesity, significant family history of pulmonary embolism and DVT. No history of atrial fibrillation per cardiology. ECOG score=1 POD #3 robotic assisted thoracoscopic right upper lobectomy with mediastinal lymph node dissection The patient is currently laying in bed on the cardiac stepdown unit in no acute distress. No complaints of pain, shortness of breath. Remains hemodynamically stable in normal sinus rhythm. Right pleural chest tube discontinued yesterday, repeat chest x-ray this morning stable. No new complaints. Objective - Vital Signs Vital signs: Vital Signs Temp 98.1 F 07/14/19 03:53 Pulse 88 07/14/19 03:53 Resp 18 07/14/19 03:53 BP 167/83 07/14/19 03:53 Pulse Ox 94 L 07/14/19 03:53 Intake & Output 07/13/19 07/14/19 07/14/19 18:59 06:59 18:59 Intake Total 1540 1013 Output Total 410 1000 Balance 1130 13 Weight 99.5 kg Intake: Oral 1540 1013 Output: Chest Tube Drainage 110 Right Lateral Chest 110 Urine 300 1000 Other: Voiding Method Toilet Toilet # Voids 1 0 - Constitutional General appearance: Present: cooperative, no acute distress, obese - Respiratory Details: Lungs sounds diminished bilaterally. Respirations even, nonlabored. Currently on room air with oxygen saturation 94%. Able to achieve 1000 mL on her incentive spirometry. Weak cough. - Cardiovascular Details: S1, S2 present. Regular rate and rhythm, sinus rhythm on telemetry. Palpable peripheral pulses bilaterally. No edema present. No calf pain or tenderness noted. - Gastrointestinal Gastrointestinal Comment(s): Abdomen soft, nontender, nondistended. Active bowel sounds present 4 quadrants. Tolerating diet. - Genitourinary Genitourinary Comment(s): Continues to void - Integumentary Integumentary Comment(s): Skin is warm and dry with evidence of good perfusion. Right former chest tube site with dressing present, serous drainage present. - Neurologic Neurologic: Present: CNII-XII intact - Musculoskeletal Musculoskeletal: Present: gait normal, strength equal bilaterally - Psychiatric Psychiatric: Present: A&O x's 3, appropriate affect, intact judgment & insight - Allied health notes Allied health notes reviewed: nursing - Labs CBC & Chem 7: 07/14/19 05:59 07/14/19 05:59 Labs: Abnormal Lab Results - Last 24 Hours (Table) 07/13/19 07/14/19 07/14/19 Range/Units 06:08 05:59 05:59 WBC 12.6 H (3.8-10.6) k/uL Carbon Dioxide 31 H (22-30) mmol/L BUN 18 H 20 H (7-17) mg/dL Creatinine 1.13 H (0.52-1.04) mg/dL Glucose 145 H (74-99) mg/dL - Imaging and Cardiology Chest x-ray: report reviewed, image reviewed Assessment and Plan Assessment: 1. Right upper lobe spiculated lung mass, PET positive, status post robotic assisted thoracoscopic right upper lobectomy with mediastinal lymph node dissection, frozen section negative, final pathology still pending 2. Current tobacco dependence 3. Mild COPD with preoperative FEV1 70% of predicted and DLCO 54% of protected 4. History of coronary artery disease with myocardial infarction and previous stent placement 5. Cryptogenic stroke in October 2018, hypercoagulable state on Coumadin for ant icoagulation. No history of atrial fibrillation per Dr. Green, her audit intern 6. Hypertension 7. Hyperlipidemia 8. Chronic heart failure 9. Marijuana use 10. Anxiety 11. Obesity 12. Significant family history of pulmonary embolism and DVT Plan: 1. Chest tube dressing to remain intact until tomorrow morning, at that time may remove and patient may shower, then should shower daily. Site only needs to be covered with dressing if continues to drain. 2. Encourage incentive spirometry 10 times every hour while awake 3. Increase activity, ambulate as tolerated 4. Pain control with current medication regimen 5. Will monitor daily x-rays 6. Bronchodilators per pulmonology 7. Management of other comorbid conditions per primary service 8. Discussed anticoagulation with patient's audit intern, no history of atrial fibrillation, defers to primary care physician. Call made to primary care physician, awaiting return phone call. Will hold off on anticoagulation decision for now. 9. Anticipate discharge to [facility] tomorrow per patient/family's wishes 10. More recommendations to follow Time with Patient: Greater than 30
[2019-07-14] MEDS: GABAPENTIN 300 MG CAP PO SCH ×3 (08:20→20:03)
[2019-07-14] MEDS: METOPROLOL SUCCINATE (ER) 50 MG TAB.ER.24H PO SCH (08:20)
[2019-07-14] MEDS: CITALOPRAM HYDROBROMIDE 20 MG TAB PO SCH (08:20)
[2019-07-14] MEDS: HEPARIN SODIUM,PORCINE 5,000 UNIT/ML 1 ML VIAL SQ SCH ×2 (08:20→16:53)
[2019-07-14] MEDS: busPIRone HCl 10 MG TAB PO SCH ×3 (08:20→20:03)
[2019-07-14] MEDS: CHOLECALCIFEROL 1,000 UNIT TAB PO SCH (08:20)
[2019-07-14] MEDS: CIPROFLOXACIN HCL 500 MG TAB PO SCH ×2 (08:20→20:03)
[2019-07-14] MEDS: NICOTINE 21MG/24HR PATCH TRANSDERM SCH (08:20)
[2019-07-14] MEDS: IPRATROPIUM-ALBUTEROL 3 ML NEB IH SCH ×4 (08:26→20:21)
--- NOTE | 2019-07-14 09:46 | P.PN ---
Subjective Progress Note Date: 07/14/19 Principal diagnosis: Mild right-sided chest discomfort Patient was seen and examined. No acute events overnight. Patient reports significant improvement in her right-sided chest discomfort after the chest tube was removed. Able to hit 1000 mL on incentive spirometer. Patient denies any nausea or vomiting. No fever or chills. Chest x-ray shows possible development of right-sided airspace disease. Patient reports cough, wet, unable to produce sputum, states that this is chronic. Objective - Vital Signs Vital signs: Vital Signs Temp 98.3 F 07/14/19 08:19 Pulse 79 07/14/19 08:40 Resp 14 07/14/19 08:19 BP 131/63 07/14/19 08:19 Pulse Ox 94 L 07/14/19 08:19 Intake & Output 07/13/19 07/14/19 07/14/19 18:59 06:59 18:59 Intake Total 1540 1013 250 Output Total 410 1000 Balance 1130 13 250 Weight 99.5 kg Intake: IV 10 Invasive Line 4 10 Oral 1540 1013 240 Output: Chest Tube Drainage 110 Right Lateral Chest 110 Urine 300 1000 Other: Voiding Method Toilet Toilet Toilet # Voids 1 0 - Exam General: [non toxic], [no distress], [appears at stated age] Derm: [warm], [dry] Head: [atraumatic], [normocephalic], [symmetric] Eyes: [EOMI], [no lid lag], [anicteric sclera] Mouth: [no lip lesion], [mucus membranes moist] Cardiovascular: [S1S2 reg], [no murmur], [positive DP pulse bilateral], [right- sided anterior lateral chest dressing clean dry and intact] Lungs: [Expiratory wheezing at the bilateral], [no rhonchi, no rales] , [no accessory muscle use] Abdominal: [soft], [ nontender to palpation], [no guarding], [no appreciable organomegaly] Ext: [no gross muscle atrophy], [no edema], [no contractures] Neuro: [no focal neuro deficits] Psych: [Alert], [oriented], [appropriate affect] - Labs CBC & Chem 7: 07/14/19 05:59 07/14/19 05:59 Labs: Abnormal Lab Results - Last 24 Hours (Table) 07/14/19 07/14/19 Range/Units 05:59 05:59 WBC 12.6 H (3.8-10.6) k/uL Carbon Dioxide 31 H (22-30) mmol/L BUN 20 H (7-17) mg/dL Creatinine 1.13 H (0.52-1.04) mg/dL Assessment and Plan Assessment: Right upper lobe spiculated nodule status post thoracoscopic robotic-assisted right upper lobectomy with mediastinal lymph node dissection POD 3 COPD exacerbation with right basilar airspace disease Acute kidney injury Leukocytosis Hypertension History of CVA and CAD Abnormal heart rhythm with EKG showing sinus arrhythmia POD 3. Plans: Right chest tube discontinued yesterday. Follow pathology repor t. Repeat chest x-ray tomorrow morning. Management as per cardiothoracic surgery. Pulmonology also following. Plans: DuoNeb scheduled and as needed for shortness of breath and wheezing. Start prednisone for a total of 5 days. Continue incentive spirometry. Follow pulmonology consultation. Creatinine 1.13. Likely prerenal from dehydration. Plans: Avoid nephrotoxins. Encourage hydration by mouth. Stable from admission. Repeat BMP tomorrow morning. Leukocytosis of 12.6. Patient afebrile. Likely related to IV steroids received during hospitalization. Plans: Continue to monitor. Repeat CBC tomorrow morning. BP 131/63. Plans: Continue lisinopril. Continue metoprolol and Imdur. Monitor vitals, adjust medications as necessary. Plans: Continue Lipitor. Continue beta michael. Questionable history of atrial fibrillation as per patient. EKG shows sinus arrhythmia. Plans: Continue metoprolol. Coumadin held as per CT surgery. Per CT surgery note, her primary credit control manager is unaware of history of atrial fibrillation, attempting to contact PCP. [Patient has progressed well. Repeat chest x-ray tomorrow morning. Plans on DC to [facility]. Likely DC on Monday.]
[2019-07-14] MEDS: ISOSORBIDE MONONITRATE ER 60 MG TAB.ER.24H PO SCH (11:34)
[2019-07-14] MEDS: predniSONE 20 MG TAB PO SCH (11:34)
--- NOTE | 2019-07-14 12:49 | P.PN ---
Subjective Progress Note Date: 07/14/19 The patient is seen today for very second 2020 in follow-up on the selective care unit. She is doing very well. Awake and alert in no acute distress. Up ambulating in the hallway with a walker and assistance. Maintaining good O2 saturations in the 90s on room air. Postoperative day #3 of a robotic-assisted right upper lobe resection and mediastinal lymph node dissection. Pathology is pending. Chest x-ray reveals tiny residual apical pneumothorax. Some worsening right basilar airspace disease. Mild cardiomegaly. Objective - Vital Signs Vital signs: Vital Signs Temp 97.7 F 07/14/19 11:33 Pulse 74 07/14/19 11:39 Resp 16 07/14/19 11:39 BP 166/91 07/14/19 11:33 Pulse Ox 93 L 07/14/19 11:33 Intake & Output 07/13/19 07/14/19 07/14/19 18:59 06:59 18:59 Intake Total 1540 1013 870 Output Total 410 1000 Balance 1130 13 870 Weight 99.5 kg Intake: IV 30 Invasive Line 4 30 Oral 1540 1013 840 Output: Chest Tube Drainage 110 Right Lateral Chest 110 Urine 300 1000 Other: Voiding Method Toilet Toilet Toilet # Voids 1 0 - Exam GENERAL EXAM: Alert and oriented 3, very pleasant 63-year-old white female, on room air, comfortable in no apparent distress. HEAD: Normocephalic/atraumatic. EYES: Normal reaction of pupils, equal size. Conjunctiva pink, sclera white. NOSE: Clear with pink turbinates. THROAT: No erythema or exudates. NECK: No masses, no JVD, no thyroid enlargement, no adenopathy. CHEST: No chest wall deformity. Symmetrical expansion. LUNGS: Equal air entry with a few scattered wheezes, but no rhonchi or dullness. CVS: Regular rate and rhythm, normal S1 and S2, no gallops, no murmurs, no rubs ABDOMEN: Soft, nontender. No hepatosplenomegaly, normal bowel sounds, no guarding or rigidity. EXTREMITIES: No clubbing, no edema, no cyanosis, 2+ pulses and upper and lower extremities. MUSCULOSKELETAL: Muscle strength and tone normal. SPINE: No scoliosis or deformity SKIN: No rashes CENTRAL NERVOUS SYSTEM: No focal deficits, tone is normal in all 4 extremities. PSYCHIATRIC: Alert and oriented -3. Appropriate affect. Intact judgment and insight. - Labs CBC & Chem 7: 07/14/19 05:59 07/14/19 05:59 Labs: Abnormal Lab Results - Last 24 Hours (Table) 07/14/19 07/14/19 Range/Units 05:59 05:59 WBC 12.6 H (3.8-10.6) k/uL Carbon Dioxide 31 H (22-30) mmol/L BUN 20 H (7-17) mg/dL Creatinine 1.13 H (0.52-1.04) mg/dL Assessment and Plan Assessment: #1. Riight upper lobe spiculated nodules with hypermetabolic uptake on the PET scan, and to bronchoscopy with biopsies were nondiagnostic, status post thoracoscopic robotic-assisted right upper lobectomy with mediastinal lymph node dissection, with the lymph node stations 4R, 7, 8, 9 hour, 10 R, 11 R, frozen section of bronchial margin were negative, postoperative day 3, awaiting the path reports for now. #2. Chronic and ongoing history of smoking #3. Mild chronic obstructive pulmonary disease with FEV1 of 70% of predicted and fusion capacity of 54% of predicted #4. GERD/reflux #5. Hypertension #6. History of CVA #7. History of coronary arterial stenosis, previous stent placement #8. Anxiety Plan The patient was seen and evaluated by Dr. Bethea. Chest x-ray reviewed. Chest tube is out. She is up ambulating in the hallway. On room air. Probable discharge in the a.m. to inpatient rehabilitation. We'll continue to follow. I, the cosigning physician, performed a history & physical examination of the patient. Lungs sounds with bilateral end of wheeze, diminished. Maintaining good O2 saturations in the 90s on room air. I discussed the assessment and plan of care with my nurse practitioner, Swapna Hayes. I attest to the above note as dictated by her.
[2019-07-14] MEDS: LISINOPRIL 10 MG TAB PO SCH (20:03)
[2019-07-14] MEDS: ATORVASTATIN 40 MG TAB PO SCH (20:03)
[2019-07-14 20:13] VITALS: RESP 18
[2019-07-15] MEDS: HEPARIN SODIUM,PORCINE 5,000 UNIT/ML 1 ML VIAL SQ SCH ×2 (00:01→08:14)
[2019-07-15] MEDS: KETOROLAC 30 MG/ML 1 ML VIAL IVP SCH ×2 (05:58)
[2019-07-15] MEDS: HYDROcodone/APAP 7.5-325MG 1 EACH TAB PO PRN ×2 (05:59→11:39)
[2019-07-15] MEDS: PANTOPRAZOLE 40 MG TABLET PO SCH (06:00)
[2019-07-15 06:45] LABS: Basophils % (A) 0 %; Eosinophils % (A) 0 %; Lymphocytes # (A) 1.1 k/uL (1.0-4.8); Lymphocytes % (A) 9 %; MCH 28.3 pg (25.0-35.0); MCHC 31.6 g/dL (31.0-37.0); MCV 89.5 fL (80.0-100.0); Mean Platelet Volume 7.9; Monocytes # (A) 0.7 k/uL (0-1.0); Monocytes % (A) 6 %; Neutrophils # (A) 10.2 k/uL (1.3-7.7); Neutrophils % (A) 84 %; Platelet Count 323 k/uL (150-450); RBC 4.25 m/uL (3.80-5.40); RDW 13.5 % (11.5-15.5); WBC 12.2 k/uL (3.8-10.6)
[2019-07-15 06:56] LABS: Calcium 9.3 mg/dL (8.4-10.2); Potassium 5.1 mmol/L (3.5-5.1)
[2019-07-15] MEDS ORDERED: KETOROLAC 30 MG/ML 1 ML VIAL IVP PRN (07:22)
--- NOTE | 2019-07-15 07:38 | P.PN ---
Subjective Progress Note Date: 07/15/19 Principal diagnosis: Right upper lobe spiculated lung mass, PET positive. Previous medical history of current tobacco dependence, mild COPD with preoperative FEV1 70% of predicted and DLCO 54% of predicted, coronary artery disease with myocardial infarction and previous stent placement, cryptogenic stroke in October 2018 and hypercoagulable state on Coumadin for anticoagulation, hypertension, hyperlipidemia, chronic heart failure, marijuana use, anxiety, obesity, significant family history of pulmonary embolism and DVT. No history of atrial fibrillation per cardiology. ECOG score=1 POD #4 robotic assisted thoracoscopic right upper lobectomy with mediastinal lymph node dissection The patient is currently laying in bed on the cardiac stepdown unit in no acute distress. No complaints of pain, shortness of breath. Remains hemodynamically stable in normal sinus rhythm. No new complaints. She does now state she was mixed up about her medications, apparently Dr. Green (her process control programmer) wanted to take her off of lisinopril and start her on Entresto. And Dr. Zhou did want to take her off Coumadin and place her on Eliquis, however her insurance would not pay for Eliquis which is the reason she is still on Coumadin. Objective - Vital Signs Vital signs: Vital Signs Temp 97.8 F 07/15/19 04:00 Pulse 81 07/15/19 04:00 Resp 18 07/15/19 04:00 BP 142/78 07/15/19 04:00 Pulse Ox 95 07/15/19 04:00 Intake & Output 07/14/19 07/15/19 07/15/19 18:59 06:59 18:59 Intake Total 1750 771 Output Total 600 Balance 1750 171 Weight 97.6 kg Intake: IV 50 60 Invasive Line 4 50 60 Oral 1700 711 Output: Urine 600 Other: Voiding Method Toilet Toilet # Voids 0 - Constitutional General appearance: Present: cooperative, no acute distress, obese - Respiratory Details: Lungs sounds diminished bilaterally with faint expiratory wheezes present. Respirations even, nonlabored. Currently on room air with oxygen saturation 95%. Able to achieve 2000 mL on her incentive spirometry. Strong cough. - Cardiovascular Details: S1, S2 present. Regular rate and rhythm, sinus rhythm on telemetry. Palpable peripheral pulses bilaterally. No edema present. No calf pain or tenderness noted. - Gastrointestinal Gastrointestinal Comment(s): Abdomen soft, nontender, nondistended. Active bowel sounds present 4 quadrants. Tolerating diet. - Genitourinary Genitourinary Comment(s): Continues to void - Integumentary Integumentary Comment(s): Skin is warm and dry with evidence of good perfusion. Right former chest tube site with dressing present, serous drainage present. - Neurologic Neurologic: Present: CNII-XII intact - Musculoskeletal Musculoskeletal: Present: gait normal, strength equal bilaterally - Psychiatric Psychiatric: Present: A&O x's 3, appropriate affect, intact judgment & insight - Allied health notes Allied health notes reviewed: nursing - Labs CBC & Chem 7: 07/15/19 05:46 07/15/19 05:46 Labs: Abnormal Lab Results - Last 24 Hours (Table) 07/15/19 07/15/19 Range/Units 05:46 05:46 WBC 12.2 H (3.8-10.6) k/uL Neutrophils # 10.2 H (1.3-7.7) k/uL BUN 25 H (7-17) mg/dL Creatinine 1.06 H (0.52-1.04) mg/dL Glucose 111 H (74-99) mg/dL - Imaging and Cardiology Chest x-ray: image reviewed Assessment and Plan Assessment: 1. Right upper lobe spiculated lung mass, PET positive, status post robotic assisted thoracoscopic right upper lobectomy with mediastinal lymph node dissection, frozen section negative, final pathology still pending 2. Current tobacco dependence 3. Mild COPD with preoperative FEV1 70% of predicted and DLCO 54% of protected 4. History of coronary artery disease with myocardial infarction and previous stent placement 5. Cryptogenic stroke in October 2018, hypercoagulable state on Coumadin for anticoagulation. No history of atrial fibrillation per Dr. Green, her process control programmer 6. Hypertension 7. Hyperlipidemia 8. Chronic heart failure 9. Marijuana use 10. Anxiety 11. Obesity 12. Significant family history of pulmonary embolism and DVT Plan: 1. Chest tube dressing to be removed today, patient may shower, then should shower daily. Site only needs to be covered with dressing if continues to drain. 2. Encourage incentive spirometry 10 times every hour while awake 3. Increase activity, ambulate as tolerated 4. Pain control with current medication regimen 5. Will monitor daily x-rays 6. Bronchodilators per pulmonology 7. Management of other comorbid conditions per primary service 8. Discussed anticoagulation with patient's process control programmer, no history of atrial fibrillation, defers to primary care physician. Call made to primary care physician, awaiting return phone call. Will restart Coumadin, have PT/INR checked at rehab facility in 3 days and they may chest from there. Will continue subcu heparin until therapeutic. 9. Anticipate discharge to [facility] today per patient/family's wishes 10. More recommendations to follow Time with Patient: Greater than 30
[2019-07-15] MEDS: predniSONE 20 MG TAB PO SCH (08:14)
[2019-07-15] MEDS: NICOTINE 21MG/24HR PATCH TRANSDERM SCH (08:14)
[2019-07-15] MEDS: CHOLECALCIFEROL 1,000 UNIT TAB PO SCH (08:15)
[2019-07-15] MEDS: GABAPENTIN 300 MG CAP PO SCH (08:15)
[2019-07-15] MEDS: CIPROFLOXACIN HCL 500 MG TAB PO SCH (08:15)
[2019-07-15] MEDS: METOPROLOL SUCCINATE (ER) 50 MG TAB.ER.24H PO SCH (08:15)
[2019-07-15] MEDS: busPIRone HCl 10 MG TAB PO SCH (08:15)
[2019-07-15] MEDS: CITALOPRAM HYDROBROMIDE 20 MG TAB PO SCH (08:15)
[2019-07-15 08:32] LABS: Prothrombin Time 10.3 sec (9.0-12.0)
[2019-07-15] MEDS: IPRATROPIUM-ALBUTEROL 3 ML NEB IH SCH ×2 (08:41→12:13)
--- NOTE | 2019-07-15 09:22 | XR ---
EXAMINATION TYPE: XR chest 2V DATE OF EXAM: 07/15/2019 COMPARISON: 07/14/2019 HISTORY: Status post lobectomy. Follow-up exam. TECHNIQUE: Frontal and lateral views of the chest are obtained. FINDINGS: Subcutaneous emphysema in seen in the right lateral chest wall. Thoracostomy tube has been removed. Stable tiny right apical pneumothorax. Strand-like bibasilar atelectasis. Cardiomediastinal silhouette is stable but enlarged. Slight right hemidiaphragm elevation remains. IMPRESSION: Stable exam from the prior of 07/14/2019. Tiny residual apical pneumothorax and bibasilar atelectasis.
--- NOTE | 2019-07-15 09:42 | P.DS ---
Providers Date of admission: 07/11/19 05:59 Expected date of discharge: 07/15/19 Attending physician: Ruiz Zhou Consults: 07/11/19 12:11 Consult Physician Routine Consulting Provider: Kamla Bethea Consult Reason/Comments: post lobectomy, caitlin'cipriano patient Do you want consulting provider notified?: Yes Consult Physician Routine Consulting Provider: Fela Baer Consult Reason/Comments: [facility] patient Do you want consulting provider notified?: Yes Primary care physician: [facility] Course: FINAL DIAGNOSIS: 1. Right upper lobe spiculated lung mass, PET positive, frozen section negative, final pathology still pending 2. Current tobacco dependence 3. Mild COPD with preoperative FEV1 70% of predicted and DLCO 54% of predicted 4. Coronary artery disease with previous myocardial infarction and previous stent placement 5. Cryptogenic stroke in October 2018 and hypercoagulable state on Coumadin for anticoagulation, no history of atrial fibrillation 6. Hypertension 7. Hyperlipidemia 8. Chronic systolic heart failure 9. Marijuana use 10. Anxiety 11. Obesity 12. Significant family history of pulmonary embolism and DVT PRINCIPAL PROCEDURE: 1. Robotic assisted thoracoscopic right upper lobectomy with mediastinal lymph node dissection HISTORY OF PRESENT ILLNESS: This is a 63-year-old female who follows on an outpatient basis with Dr. Lukas Zhou. In October 2018 she was hospitalized at [facility] for right-sided stroke. She had an incidental finding at that time on CAT scan of suspicious right upper lobe nodules. She had a bronchoscopy with biopsy while at [facility], unfortunately this was nondiagnostic. She followed up with Dr. Silver from pulmonology upon discharge and underwent navigational bronchoscopy with multiple right upper lobe transbronchial biopsies which were also nondiagnostic. Subsequently she had a PET scan done which demonstrated hypermetabolic uptake in the right upper lobe . The patient was referred to Dr. Zhou from cardiothoracic surgery. She was recommended to undergo robotic right upper lobectomy as the mass was not amenable to wedge resection and was strongly felt to be carcinoma. The usual perioperative course was discussed in detail with the patient and her family, all risks and benefits were explained, all questions were answered, and consent was obtained to proceed with surgery. After obtaining cardiology clearance the patient was scheduled for surgery at the earliest possible date, she was required to be off Coumadin for 5 days. HOSPITAL COURSE: The patient was brought to the hospital on 07/11/2019, taken to the preoperative area, prepared in the usual fashion, and subsequently taken to the operating room where Dr. Zhou performed a robotic-assisted thoracoscopic right upper lobectomy and mediastinal lymph node dissection. Upon completion of surgery the patient was extubated and taken to the recovery room where she was was recovered and monitored hemodynamically. She was eventually admitted to the cardiac stepdown unit where she continued to recover. Her chest tube was placed to waterseal the night of surgery, there was no air leak present and the right pleural chest tube was discontinued on postop day #2. Repeat chest x-ray was stable. Her oxygen was titrated down, she continued to work with physical and occupational therapy, she was tolerating oral diet, her pain was controlled, and she was ready to be discharged to [facility] in [place] on postoperative day #4. She received written and verbal instruction regarding her medications, activity restrictions, signs and symptoms requiring physician notification, and follow-up appointments. Of note, there was discussion about proper anticoagulation. Dr. Green, the patient's media liaison officer, was contacted and stated there was no history of atrial fibrillation and they would defer decision regarding Coumadin to the patient's primary care physician. Dr. Zhou's office was contacted, however did not return phone call. The patient states Dr. Zhou did want to switch the patient to Eliquis, however her insurance would not cover it and she remains on Coumadin. COMPLICATIONS: The patient experienced no postoperative complications. Patient Condition at Discharge: Stable Plan - Discharge Summary Discharge Rx Participant: No New Discharge Prescriptions: New predniSONE [Deltasone] 40 mg PO DAILY 3 Days tab Ipratropium-Albuterol Nebulize [Duoneb 0.5 mg-3 mg/3 ml Soln] 3 ml IH RT-QID ml Ipratropium-Albuterol Nebulize [Duoneb 0.5 mg-3 mg/3 ml Soln] 3 ml IH RT-Q1H PRN ml PRN Reason: Shortness Of Breath Or Wheezing Nicotine 21Mg/24Hr Patch [Habitrol] 1 patch TRANSDERM DAILY patch Heparin Sodium,Porcine [Heparin Sodium] 5,000 unit SQ Q8HR vial Acetaminophen Tab [Tylenol] 1,000 mg PO Q6HR PRN tab PRN Reason: Fever and/ or Mild Pain Continue busPIRone HCL 15 mg PO TID Isosorbide Mononitrate ER [Imdur] 60 mg PO DAILY Citalopram Hydrobromide [CeleXA] 40 mg PO DAILY Metoprolol Succinate (ER) [Toprol XL] 50 mg PO DAILY Lisinopril [Zestril] 10 mg PO HS Warfarin [Coumadin] 7.5 mg PO MOWEFRSA Warfarin [Coumadin] 5 mg PO SUTUTH Cholecalciferol [Vitamin D3 (25 Mcg = 1000 Iu)] 5,000 unit PO DAILY Atorvastatin [Lipitor] 40 mg PO HS Pantoprazole Sodium [Protonix] 40 mg PO DAILY Gabapentin [Neurontin] 300 mg PO TID #21 cap HYDROcodone/APAP 7.5-325MG [[place] 7.5-325] 1 each PO Q4H PRN #42 tab PRN Reason: Pain Discontinued Albuterol Inhaler [Ventolin Hfa Inhaler] 1 - 2 puff INHALATION Q6HR PRN PRN Reason: Shortness Of Breath Ciprofloxacin HCl [Cipro] 500 mg PO BID Discharge Medication List Citalopram Hydrobromide [CeleXA] 40 mg PO DAILY 01/02/17 [History] Isosorbide Mononitrate ER [Imdur] 60 mg PO DAILY 01/02/17 [History] busPIRone HCL 15 mg PO TID 01/02/17 [History] Lisinopril [Zestril] 10 mg PO HS 05/27/19 [History] Metoprolol Succinate (ER) [Toprol XL] 50 mg PO DAILY 05/27/19 [History] Warfarin [Coumadin] 5 mg PO SUTUTH 05/27/19 [History] Warfarin [Coumadin] 7.5 mg PO MOWEFRSA 05/27/19 [History] Atorvastatin [Lipitor] 40 mg PO HS 07/03/19 [History] Cholecalciferol [Vitamin D3 (25 Mcg = 1000 Iu)] 5,000 unit PO DAILY 07/03/19 [History] Pantoprazole Sodium [Protonix] 40 mg PO DAILY 07/03/19 [History] Acetaminophen Tab [Tylenol] 1,000 mg PO Q6HR PRN tab 07/15/19 [Rx] Gabapentin [Neurontin] 300 mg PO TID #21 cap 07/15/19 [Rx] HYDROcodone/APAP 7.5-325MG [[place] 7.5-325] 1 each PO Q4H PRN #42 tab 07/15/19 [Rx] Heparin Sodium,Porcine [Heparin Sodium] 5,000 unit SQ Q8HR vial 07/15/19 [Rx] Ipratropium-Albuterol Nebulize [Duoneb 0.5 mg-3 mg/3 ml Soln] 3 ml IH RT-Q1H PRN ml 07/15/19 [Rx] Ipratropium-Albuterol Nebulize [Duoneb 0.5 mg-3 mg/3 ml Soln] 3 ml IH RT-QID ml 07/15/19 [Rx] Nicotine 21Mg/24Hr Patch [Habitrol] 1 patch TRANSDERM DAILY patch 07/15/19 [Rx] predniSONE [Deltasone] 40 mg PO DAILY 3 Days tab 07/15/19 [Rx] Follow up Appointment(s)/Referral(s): Roni Silver MD [STAFF PHYSICIAN] - 07/31/19 2:00 pm (Monday) Ruiz Zhou MD [STAFF PHYSICIAN] - 07/25/19 1:00 pm () Lukas Freeman DO [Primary Care Provider] - 07/24/19 1:30 pm (Monday) Ambulatory/Diagnostic Orders: Prothrombin Time INR [LAB.AMB] Location: None Selected Activity/Diet/Wound Care/Special Instructions: DISCHARGE INSTRUCTIONS: 1. No driving for 2 weeks, or until physician gives their ok. 2. No lifting, pushing, or pulling more than 10 pounds for 2 weeks. The physician will advise of any restriction changes. 3. Continue pain control per as needed orders. Alternate acetaminophen (Tylenol) and ibuprofen (Motrin/Advil) for pain. 4. Continue with incentive spirometry and splinting until otherwise directed by the physician. 5. Leave chest tube dressing for 48 hours. After that, remove all dressings and shower daily. 6. Routine incision care. No powders, lotions, ointments on incisions. 7. Please call surgeon/COMPONENT ENGINEER for temp greater than 101 F or purulent drainage from incisions. Discharge Disposition: TRANSFER TO SNF/ECF
--- NOTE | 2019-07-15 10:02 | P.PN ---
Subjective Progress Note Date: 07/15/19 Principal diagnosis: Mild right-sided chest discomfort Patient was seen and examined. No acute events overnight. Patient reports significant improvement in her right-sided chest discomfort after the chest tube was removed. Able to hit over 1000 mL on incentive spirometer. Patient denies any nausea or vomiting. No fever or chills. Chest x-ray shows stable chest, tiny apical pneumothorax and bibasilar atelectasis. Patient states that she was able to cough up much of the sputum and mucus that was stuck in her chest yesterday. Objective - Vital Signs Vital signs: Vital Signs Temp 98.1 F 07/15/19 07:44 Pulse 74 07/15/19 07:47 Resp 18 07/15/19 07:47 BP 173/83 07/15/19 07:44 Pulse Ox 98 07/15/19 07:44 Intake & Output 07/14/19 07/15/19 07/15/19 18:59 06:59 18:59 Intake Total 1750 771 820 Output Total 600 300 Balance 1750 171 520 Weight 97.6 kg Intake: IV 50 60 20 Invasive Line 4 50 60 20 Oral 1700 711 800 Output: Urine 600 300 Other: Voiding Method Toilet Toilet Toilet # Voids 0 - Exam General: [non toxic], [no distress], [appears at stated age] Derm: [warm], [dry] Head: [atraumatic], [normocephalic], [symmetric] Eyes: [EOMI], [no lid lag], [anicteric sclera] Mouth: [no lip lesion], [mucus membranes moist] Cardiovascular: [S1S2 reg], [no murmur], [positive DP pulse bilateral], [right- sided anterior lateral chest dressing clean dry and intact] Lungs: [Decreased breath sounds bilaterally], [no rhonchi, no rales] , [no accessory muscle use] Abdominal: [soft], [ nontender to palpation], [no guarding], [no appreciable organomegaly] Ext: [no gross muscle atrophy], [no edema], [no contractures] Neuro: [no focal neuro deficits] Psych: [Alert], [oriented], [appropriate affect] - Labs CBC & Chem 7: 07/15/19 05:46 07/15/19 05:46 Labs: Abnormal Lab Results - Last 24 Hours (Table) 07/15/19 07/15/19 Range/Units 05:46 05:46 WBC 12.2 H (3.8-10.6) k/uL Neutrophils # 10.2 H (1.3-7.7) k/uL BUN 25 H (7-17) mg/dL Creatinine 1.06 H (0.52-1.04) mg/dL Glucose 111 H (74-99) mg/dL Assessment and Plan Assessment: Right upper lobe spiculated nodule status post thoracoscopic robotic-assisted right upper lobectomy with mediastinal lymph node dissection POD 4 COPD exacerbation with atelectasis Acute kidney injury Leukocytosis Hypertension History of CVA and CAD Abnormal heart rhythm with EKG showing sinus arrhythmia POD 4. Plans: Right chest tube discontinued yesterday. Follow pathology re port. Management as per cardiothoracic surgery. Pulmonology also following. Improved. Plans: DuoNeb scheduled and as needed for shortness of breath and wheezing. Prednisone for a total of 5 days. Continue incentive spirometry. Follow pulmonology consultation. Creatinine 1.13-1.06. Likely prerenal from dehydration. Plans: Avoid nephrotoxins. Encourage hydration by mouth. Stable from admission. Leukocytosis of 12.6-12.2. Patient afebrile. Likely related to IV steroids received during hospitalization, on prednisone now. Plans: No signs of infection. Nothing further to do. BP 173/83. Plans: Continue lisinopril. Continue metoprolol and Imdur. Monitor vitals, adjust medications as necessary. Plans: Continue Lipitor. Continue beta michael. Questionable history of atrial fibrillation as per patient. EKG shows sinus arrhythmia. Cardiology has no record of atrial fibrillation. Apparently, patient is on Coumadin for history of embolic stroke. Plans: Continue metopr olol. Coumadin continued by CT surgery to be adjusted or changed by PCP. [Patient has progressed well. Plans on DC to [facility]. She has already completed a 3 day course of ciprofloxacin for UTI. Likely DC today.]
[2019-07-15] MEDS ORDERED: WARFARIN 7.5 MG TAB PO ONE (11:30)
[2019-07-15 11:38] VITALS: BP 166/76; PULSE 67; TEMP 97.6
[2019-07-15] MEDS: ISOSORBIDE MONONITRATE ER 60 MG TAB.ER.24H PO SCH (11:39)
--- NOTE | 2019-07-15 12:06 | P.PN ---
Subjective Progress Note Date: 07/15/19 Principal diagnosis: Right upper lobe mass, status post right upper lobectomy with mediastinal lymph node removal 63-year-old white female patient with history of COPD, former smoker, hypertension, coronary arterial sclerosis, previous history of CVA, anxiety, who follows with Dr. Gamez in the pulmonary clinic, was discovered to have 2 suspicious right upper lobe nodules one measuring 17 x 15 x 18 mm and another nodule measuring 12 x 9 x 8 mm in October 2018 at [facility] in [place] when she was hospitalized for a right-sided CVA. Patient had bronchoscopy and biopsy of the above-mentioned right upper lobe nodules at [facility], and it was nondiagnostic. Patient then underwent navigational bronchoscopy and multiple right upper lobe transbronchial biopsies of right upper lobe nodule on 05/28/2019 and the biopsies were nondiagnostic. Patient had a PET scan done on 05/10/2019 which showed slightly spiculated 2.3 x 2.0 cm hypermetabolic right upper lobe nodule with max SUV of 18.12. Immediately inferior to this there was a smaller slightly lobulated 1.2 x 1.0 cm right upper lobe nodule with SUV of 9.54. No additional areas of hypermetabolic uptake were identified in the opposite left lung or the hilar region or mediastinum to suggest abnormal a denopathy. As such both nodules were suspicious for malignancy. Patient was referred to thoracic surgery for surgical resection, and on 07/11/2019 patient underwent robotic-assisted thoracoscopic right upper lobectomy with mediastinal lymph node dissection of lymph node stations 4R, 7, 8 hour, 9 are, 10 R, and 11 RR. Frozen sections of bronchial margins were negative. Patient is seen in the postoperative period in the intensive care unit, she is a selective overflow, she is lethargic, but easily arousable, having moderate amount of pain in the incision in the right chest. Right chest tube is in place, with no evidence of air leak, small amount of serosanguineous drainage in the chest tube, it is connected to wall suction. Postoperative chest x-ray showed postsurgical changes of a right upper lobectomy with small right-sided pneumothorax and appropriately positioned thoracostomy tube On 07/12/2019 patient seen in follow-up in intensive care unit, since postoperative day 1, status post right upper lobectomy and mediastinal lymph node dissection. Doing well, she is currently on 3 L of oxygen with pulse ox of 86%, sinus rhythm with a rate of 78, blood pressure is stable, 112/66. Hemodynamically stable. Right-sided chest tube to waterseal, and there is a small air leak with deep inspiration, small amount of serosanguineous output, which is thin on today's exam. Lung sounds basilar crackles at the right lower base. IS effort is 500 mL on today's evaluation. Today's chest x-ray has been reviewed showing postsurgical changes in the right upper lobe, and the right-sided thoracostomy tube in place. No pneumothorax appreciated on today's chest x-ray. Today's labs have been reviewed, showing white blood cell count of 7.4, hemoglobin of 11.2, INR is 1.2, electrolytes were unremarkable, BUN 16, and creatinine is 1.16. On the 07/15/2019 patient seen in follow-up on selective care unit. Doing very well, this postoperative day 4, postop robotic-assisted right upper lobe resection and mediastinal lymph node dissection. Pathology still pending, chest tube had been removed, today's chest x-ray has been reviewed showing stable exam compared to yesterday's chest x-ray, and tiny residual apical pneumothorax and bibasilar atelectasis, room air pulse ox is 95%, afebrile, hemodynamically patient is stable, still has slightly congested cough, and some minimal wheezi ng, especially in the right lung, she is on breathing treatments, patient is on oral prednisone, patient has been afebrile. Objective - Vital Signs Vital signs: Vital Signs Temp 97.6 F 07/15/19 11:37 Pulse 67 07/15/19 11:45 Resp 18 07/15/19 11:45 BP 166/76 07/15/19 11:37 Pulse Ox 95 07/15/19 11:37 Intake & Output 07/14/19 07/15/19 07/15/19 18:59 06:59 18:59 Intake Total 1750 771 840 Output Total 600 925 Balance 1750 171 -85 Weight 97.6 kg Intake: IV 50 60 40 Invasive Line 4 50 60 40 Oral 1700 711 800 Output: Urine 600 925 Other: Voiding Method Toilet Toilet Toilet # Voids 0 - Exam GENERAL EXAM: Alert and oriented 3, very pleasant 63-year-old white female, on room air with 95% comfortable in no apparent distress. HEAD: Normocephalic/atraumatic. EYES: Normal reaction of pupils, equal size. Conjunctiva pink, sclera white. NOSE: Clear with pink turbinates. THROAT: No erythema or exudates. NECK: No masses, no JVD, no thyroid enlargement, no adenopathy. CHEST: No chest wall deformity. Symmetrical expansion. Interval removal of the right lateral chest chest tube is in place LUNGS: Equal air entry with a few scattered wheezes, but no rhonchi or dullness. CVS: Regular rate and rhythm, normal S1 and S2, no gallops, no murmurs, no rubs ABDOMEN: Soft, nontender. No hepatosplenomegaly, normal bowel sounds, no guarding or rigidity. EXTREMITIES: No clubbing, no edema, no cyanosis, 2+ pulses and upper and lower extremities. MUSCULOSKELETAL: Muscle strength and tone normal. SPINE: No scoliosis or deformity SKIN: No rashes CENTRAL NERVOUS SYSTEM: Alert and oriented -3. No focal deficits, tone is normal in all 4 extremities. PSYCHIATRIC: Alert and oriented -3. Appropriate affect. Intact judgment and insight. - Labs CBC & Chem 7: 07/15/19 05:46 07/15/19 05:46 Labs: Abnormal Lab Results - Last 24 Hours (Table) 07/15/19 07/15/19 Range/Units 05:46 05:46 WBC 12.2 H (3.8-10.6) k/uL Neutrophils # 10.2 H (1.3-7.7) k/uL BUN 25 H (7-17) mg/dL Creatinine 1.06 H (0.52-1.04) mg/dL Glucose 111 H (74-99) mg/dL Assessment and Plan Plan: Assessment: #1. 2 Right upper lobe spiculated nodules with hypermetabolic uptake on the PET scan, and to bronchoscopy with biopsies were nondiagnostic, status post thoracoscopic robotic-assisted right upper lobectomy with mediastinal lymph node dissection, with the lymph node stations 4R, 7, 8, 9 hour, 10 R, 11 R, frozen section of bronchial margin were negative, postoperative day 4 #2. Chronic and ongoing history of smoking #3. Mild chronic obstructive pulmonary disease with FEV1 of 70% of predicted and fusion capacity of 54% of predicted #4. GERD/reflux #5. Hypertension #6. History of CVA #7. History of coronary arterial stenosis, previous stent placement #8. Anxiety Plan: She is doing well, discharge to subacute rehab is in progress. Today's chest x- ray has been reviewed, showing residual tiny right apical pneumothorax, bibasilar atelectasis, room air pulse ox is 95%, pathology report is still pending. Clinically doing well, tolerating ambulation, working on incentive s pirometer. Follow-up with Dr. Gamez in the office in 7-10 days I performed a history & physical examination of the patient and discussed their management with my nurse practitioner, Amie Petit. I reviewed the nurse practitioner's note and agree with the documented findings and plan of care. Lung sounds are positive for a few scattered wheezes throughout the lung escobar. The findings and the impression was discussed with the patient. I attest to the documentation by the nurse practitioner. Time with Patient: Less than 30
--- NOTE | 2019-07-19 08:27 | CDI ---
Documentation Clarification Form Date: 07/19/19 From: Erika Ogden Phone: If you have a question about this query, please contact Adelita Raines, Senior Director Marketing at [phone] between 8am and 5pm. Admit Date: 07/11/19 Discharge Date: 07/15/19 Patient Name: Sandra Gu Visit Number: [id number] ATTENTION: The Clinical Documentation Specialists (CDI) and [facility] Coding Staff appreciate your assistance in clarifying documentation. Please respond to the clarification below the line at the bottom and electronically sign. The CDI & [facility] Coding staff will review the response and follow-up if needed. Please note: Queries are made part of the Legal Health Record. If you have any questions, please contact the author of this message via ITS. Dear Dr. 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 Patient history/risk factors: Smoker, COPD, chronic systolic CHF w HTN, hx of stroke Clinical Indicators: RUL nodule is dumbell shaped lesion. Treatment: Robotic-assisted thoracoscopic right upper lobectomy w mediastistinal lymph node dissection. In your professional opinion, do you agree with the pathology report specifying right upper lobe nodule as non-small cell ca consistent w poorly differentiated adenocarcinoma of RUL? Yes No Other (please specify) Unable to determine See addendum to D Summary MTDD
== END 2019-07-15 13:14 | DRG 164 ==
LOC: 2ORMAIN 05:59 → 2SICU 11:18 → 3SCARD 07-12 11:44
PROVIDERS: ADMIT Thoracic Surgery (Cardiothoracic Vascular Surgery); ATTEND Thoracic Surgery (Cardiothoracic Vascular Surgery)
PROC: 8E0W4CZ Robotic Assisted Procedure of Trunk Region, Percutaneous Endoscopic Approach (ICD-10-PCS; principal; 2019-07-11 07:30)
PROC: 0BTC4ZZ Resection of Right Upper Lung Lobe, Percutaneous Endoscopic Approach (ICD-10-PCS; principal; 2019-07-11 07:30)
PROC: 07T74ZZ Resection of Thorax Lymphatic, Percutaneous Endoscopic Approach (ICD-10-PCS; principal; 2019-07-11 07:30)
DX: C34.11 Malignant neoplasm of upper lobe, right bronchus or lung (principal); D68.62 Lupus anticoagulant syndrome; I50.22 Chronic systolic (congestive) heart failure; N17.9 Acute kidney failure, unspecified; J44.1 Chronic obstructive pulmonary disease with (acute) exacerbation; J98.11 Atelectasis; I11.0 Hypertensive heart disease with heart failure; E86.0 Dehydration; D72.829 Elevated white blood cell count, unspecified; T38.0X5A Adverse effect of glucocorticoids and synthetic analogues, initial encounter; E78.5 Hyperlipidemia, unspecified; K21.9 Gastro-esophageal reflux disease without esophagitis; I25.10 Atherosclerotic heart disease of native coronary artery without angina pectoris; F41.9 Anxiety disorder, unspecified; I25.2 Old myocardial infarction; M19.90 Unspecified osteoarthritis, unspecified site; M48.00 Spinal stenosis, site unspecified; R59.9 Enlarged lymph nodes, unspecified; Z71.6 Tobacco abuse counseling; F17.210 Nicotine dependence, cigarettes, uncomplicated; E66.9 Obesity, unspecified; Z68.32 Body mass index [BMI] 32.0-32.9, adult; Z79.01 Long term (current) use of anticoagulants; Z79.899 Other long term (current) drug therapy; Z86.73 Personal history of transient ischemic attack (TIA), and cerebral infarction without residual deficits; Z90.49 Acquired absence of other specified parts of digestive tract; Z95.5 Presence of coronary angioplasty implant and graft; Z90.710 Acquired absence of both cervix and uterus; Z98.890 Other specified postprocedural states; Z98.51 Tubal ligation status; Z80.0 Family history of malignant neoplasm of digestive organs; Z83.2 Family history of diseases of the blood and blood-forming organs and certain disorders involving the immune mechanism
CPT/HCPCS: 36600; 71045; 71046; 80048; 80051; 81001; 82565; 82805; 82947; 84132; 84520; 85025; 85027; 85610; 85730; 86850; 86900; 86901; 87077; 87086; 87186; 88305; 88309; 88331; 88341; 88342; 94640; 94760

== ENCOUNTER 2023-01-31 20:41 | Inpatient (IN) | payer MEDICARE ==
--- NOTE | 2023-01-31 21:06 | ED ---
SOB HPI - General Chief Complaint: Shortness of Breath Stated Complaint: SOB Time Seen by Provider: 01/31/23 21:00 Source: EMS Mode of arrival: EMS - History of Present Illness Initial Comments: 67-year-old female with past history of lung cancer in remission, CHF who presents to the emergency department as a transfer from [facility]. Patient went into the facility morning stating that she had shortness of breath over the past 2 days. Laboratory studies were conducted which demonstrated a high BNP. Chest x-ray demonstrated pulmonary venous congestion without overt failure. Patient admits to a history of CHF and does have a school social worker from [facility]. [facility] transfer the patient to our facility for cardiology evaluation. She does have a history of A. fib and is on Coumadin she admits to a productive cough with thick clear sputum. She continues to smoke. No history of home oxygen. She denies having any chest pain. she was given a nebulizer treatment and steroids. They also gave her dose of Lasix 20 milligrams, 324 mg of aspirin, 0.5 mg of Ativan and a liter of normal saline. BNP was 21,500. INR is 2.5. Patient transferred for facility in stable condition - Related Data Home Medications Medication Instructions Recorded Confirmed Isosorbide Mononitrate ER [Imdur] 60 mg PO DAILY 01/02/17 01/31/23 Warfarin [Coumadin] 5 mg PO MOTUWETHFR@209905/27/19 01/31/23 Pantoprazole Sodium [Protonix] 40 mg PO DAILY 07/03/19 01/31/23 ALPRAZolam [Xanax] 0.5 mg PO BID PRN 01/31/23 01/31/23 Acetaminophen/Diphenhydramine 1 tab PO HS PRN 01/31/23 01/31/23 [Tylenol PM 500-25mg] Gabapentin 600 mg PO BID 01/31/23 01/31/23 Losartan Potassium [Cozaar] 100 mg PO DAILY 01/31/23 01/31/23 Metoprolol Tartrate [Lopressor] 50 mg PO BID 01/31/23 01/31/23 Sertraline [Zoloft] 50 mg PO DAILY 01/31/23 01/31/23 Warfarin [Coumadin] 7.5 mg PO SUSA@209901/31/23 01/31/23 busPIRone HCL [Buspar] 30 mg PO BID 01/31/23 01/31/23 Allergies Allergy/AdvReac Type Severity Reaction Status Date / Time ibuprofen [From Motrin] AdvReac Unknown Nausea & Verified 01/31/23 22:54 Vomiting tetracycline AdvReac Unknown Nausea & Verified 01/31/23 22:54 Vomiting Review of Systems ROS Statement: Those systems with pertinent positive or pertinent negative responses have been documented in the HPI. ROS Other: All systems not noted in ROS Statement are negative. Past Medical History Past Medical History: Cancer, Heart Failure, COPD, CVA/TIA, GERD/Reflux, Hyperlipidemia, Hypertension, Myocardial Infarction (IA), Osteoarthritis (OA) Additional Past Medical History / Comment(s): "STATES HEART SKIPS BEATS", HX OF [place] X2 ( UNKNOWN DATE, 2009)., LUNG CANCER PER PATIENT,. pain occurs at times in back and rt arm, shoulders,neck and hips, jun knees and spinal stenosis Last Myocardial Infarction Date:: 2009 History of Any Multi-Drug Resistant Organisms: None Reported Past Surgical History: Appendectomy, Cholecystectomy, Heart Catheterization With Stent, Hysterectomy, Orthopedic Surgery, Tubal Ligation Additional Past Surgical History / Comment(s): RIGHT ANKLE, EGD, heart stent x2 2009,2013 Past Anesthesia/Blood Transfusion Reactions: No Reported Reaction Date of Last Stent Placement:: 2013 Past Psychological History: Anxiety, Depression Smoking Status: Current every day smoker Past Alcohol Use History: Occasional Past Drug Use History: Marijuana - Past Family History Brother(s) Family Medical History: Cancer Additional Family Medical History / Comment(s): ESOPHAGEAL CANCER Sister(s) Family Medical History: Blood Disorder, Deep Vein Thrombosis (DVT), Pulmonary Embolus Additional Family Medical History / Comment(s): 1 SISTER HAD BLOOD DISORDER AND FROM CLOT. 1 SISTER HAD DVT. 1 SISTER HAD PE. General Exam General appearance: alert, in no apparent distress Head exam: Present: atraumatic, normocephalic, normal inspection Eye exam: Present: normal appearance, PERRL, EOMI. Absent: scleral icterus, conjunctival injection, periorbital swelling ENT exam: Present: normal exam, mucous membranes moist Neck exam: Present: normal inspection. Absent: tenderness, meningismus, lymphadenopathy Respiratory exam: Present: wheezes, rales, decreased breath sounds. Absent: respiratory distress, rhonchi, stridor Cardiovascular Exam: Present: regular rate, normal rhythm, normal heart sounds. Absent: systolic murmur, diastolic murmur, rubs, gallop, clicks GI/Abdominal exam: Present: soft, normal bowel sounds. Absent: distended, tenderness, guarding, rebound, rigid Extremities exam: Present: normal inspection, full ROM, normal capillary refill. Absent: tenderness, pedal edema, joint swelling, calf tenderness Back exam: Present: normal inspection Neurological exam: Present: alert, oriented X3, CN II-XII intact Psychiatric exam: Present: normal affect, normal mood Skin exam: Present: warm, dry, intact, normal color. Absent: rash Course Vital Signs 01/31/23 01/31/23 01/31/23 20:45 21:33 21:50 Temperature 98.9 F Pulse Rate 84 88 Respiratory 24 24 18 Rate Blood Pressure 141/100 126/78 O2 Sat by Pulse 97 97 Oximetry 01/31/23 01/31/23 01/31/23 22:00 23:00 23:03 Temperature Pulse Rate 82 75 77 Respiratory 22 20 Rate Blood Pressure 142/89 138/74 O2 Sat by Pulse 97 97 Oximetry 01/31/23 23:13 Temperature Pulse Rate 85 Respiratory Rate Blood Pressure O2 Sat by Pulse Oximetry Medical Decision Making - Medical Decision Making Was pt. sent in by a medical professional or institution (, PA, CINDER CRUSHER OPERATOR, urgent care, hospital, or chcf...) When possible be specific @ -Patient was a transfer from [facility] Did you speak to anyone other than the patient for history (EMS, parent, family, police, friend...)? What history was obtained from this source @ -Dr. Beaulieu did transfer the patient and I spoke with him in regards to the patient's presentation at his facility Did you review nursing and triage notes (agree or disagree)? Why? @ -I reviewed and agree with nursing and triage notes Were old charts reviewed (outside hosp., previous admission, EMS record, old EKG, old radiological studies, urgent care reports/EKG's, chcf records)? Report findings @ -No old charts were reviewed Differential Diagnosis (chest pain, altered mental status, abdominal pain women, abdominal pain men, vaginal bleeding, weakness, fever, dyspnea, syncope, headache, dizziness, GI bleed, back pain, seizure, CVA, palpatations, mental health, musculoskeletal)? @ -Differential Dyspnea: Coronary syndrome, arrhythmia, tamponade, asthma, COPD, pulmonary embolism, pneumonia, pneumothorax, pulmonary effusion, anaphylaxis, diabetic ketoacidosis, flailed chest, pulmonary contusion, diaphragmatic rupture, anemia, neuromuscular, this is not meant to be an all-inclusive list. EKG interpreted by me (3pts min.). @ -Yes and demonstrates sinus rhythm with a rate of 86. NH interval 143. QRS 127. QTC of 457. No acute ST segment elevations or depressions. Right bundle branch block X-rays interpreted by me (1pt min.). @ -None done CT interpreted by me (1pt min.). @ -None done U/S interpreted by me (1pt. min.). @ -None done What testing was considered but not performed or refused? (CT, X-rays, U/S, labs)? Why? @ -X-ray was considered however the patient had one at [facility] prior to arrival What meds were considered but not given or refused? Why? @ -None Did you discuss the management of the patient with other professionals (professionals i.e. , PA, CINDER CRUSHER OPERATOR, lab, RT, psych nurse, social worker clinical, hairspring truing inspector, teacher, gift officer, pillowcase turner)? Give summary @ -Spoke with Dr. Montana will admit the patient Was smoking cessation discussed for >3mins.? @ -Yes for greater than 3 minutes. Patient does have nicotine dependence. She is not open to quitting at this time Was critical care preformed (if so, how long)? @ -No Were there social determinants of health that impacted care today? How? (Homelessness, low income, unemployed, alcoholism, drug addiction, transportation, low edu. Level, literacy, decrease access to med. care, care home, rehab)? @ -No Was there de-escalation of care discussed even if they declined (Discuss DNR or withdrawal of care, Hospice)? DNR status @ -No What co-morbidities impacted this encounter? (DM, HTN, Smoking, COPD, CAD, C ancer, CVA, ARF, Chemo, Hep., AIDS, mental health diagnosis, sleep apnea, morbid obesity)? @ -CHF, A. fib Was patient admitted / discharged? Hospital course, mention meds given and route, prescriptions, significant lab abnormalities, going to OR and other pertinent info. @ -Upon arrival patient was placed in room 10. I did review the transfer packet. IV had been previously established by their facility. I repeated laboratory studies included BNP. She had been previously been given 20 mg of Lasix. I did order an additional 40 mg with 40 mg to be dosed twice daily. Patient will be admitted for cardiology consultation. He is awaiting a bed on the floor in stable condition. Patient admitted to Dr. Krishnan who accepted the admission Undiagnosed new problem with uncertain prognosis? @ -No Drug Therapy requiring intensive monitoring for toxicity (Heparin, Nitro, Insulin, Cardizem)? @ -No Were any procedures done? @ -No Diagnosis/symptom? @ -Acute respiratory insufficiency, acute exacerbation of CHF Acute, or Chronic, or Acute on Chronic? @ -Acute Uncomplicated (without systemic symptoms) or Complicated (systemic symptoms)? @ -Complicated Side effects of treatment? @ -Kidney injury Exacerbation, Progression, or Severe Exacerbation? @ -yes Poses a threat to life or bodily function? How? (Chest pain, USA, IA, pneumonia, PE, COPD, DKA, ARF, appy, cholecystitis, CVA, Diverticulitis, Homicidal, Suicida l, threat to staff... and all critical care pts) @ -No - Lab Data Result diagrams: 01/31/23 21:59 01/31/23 21:59 Lab Results 01/31/23 01/31/23 01/31/23 Range/Units 21:59 21:59 21:59 WBC 8.2 (3.8-10.6) k/uL RBC 4.73 (3.80-5.40) m/uL Hgb 14.0 (11.4-16.0) gm/dL Hct 42.3 (34.0-46.0) % MCV 89.4 (80.0-100.0) fL MCH 29.7 (25.0-35.0) pg MCHC 33.1 (31.0-37.0) g/dL RDW 14.5 (11.5-15.5) % Plt Count 224 (150-450) k/uL MPV 8.2 Neutrophils % 90 % Lymphocytes % 7 % Monocytes % 2 % Eosinophils % 1 % Basophils % 0 % Neutrophils # 7.4 (1.3-7.7) k/uL Lymphocytes # 0.6 L (1.0-4.8) k/uL Monocytes # 0.1 (0-1.0) k/uL Eosinophils # 0.1 (0-0.7) k/uL Basophils # 0.0 (0-0.2) k/uL Sodium 137 (137-145) mmol/L Potassium 3.6 (3.5-5.1) mmol/L Chloride 104 (98-107) mmol/L Carbon Dioxide 27 (22-30) mmol/L Anion Gap 6 mmol/L BUN 8 (7-17) mg/dL Creatinine 0.78 (0.52-1.04) mg/dL Est GFR (CKD-EPI)AfAm >90 (>60 ml/min/1.73 sqM) Est GFR (CKD-EPI)NonAf 79 (>60 ml/min/1.73 sqM) Glucose 165 H (74-99) mg/dL Calcium 9.0 (8.4-10.2) mg/dL Total Bilirubin 0.7 (0.2-1.3) mg/dL AST 18 (14-36) U/L ALT 13 (4-34) U/L Alkaline Phosphatase 71 (38-126) U/L Troponin I 0.012 (0.000-0.034) ng/mL NT-Pro-B Natriuret Pep 55967 pg/mL Total Protein 6.9 (6.3-8.2) g/dL Albumin 3.9 (3.5-5.0) g/dL Disposition Clinical Impression: Congestive heart failure, Respiratory insufficiency Disposition: ADMITTED IP TO THIS [facility] Condition: Stable Is patient prescribed a controlled substance at d/c from ED?: No Time of Disposition: 22:34 Decision to Admit Reason: Admit from EC Decision Date: 01/31/23 Decision Time: :34
[2023-01-31 22:19] LABS: Basophils % (A) 0 %; Eosinophils # (A) 0.1 k/uL (0-0.7); Eosinophils % (A) 1 %; HCT 42.3 % (34.0-46.0); Lymphocytes # (A) 0.6 k/uL (1.0-4.8); Lymphocytes % (A) 7 %; MCH 29.7 pg (25.0-35.0); MCHC 33.1 g/dL (31.0-37.0); MCV 89.4 fL (80.0-100.0); Mean Platelet Volume 8.2; Monocytes # (A) 0.1 k/uL (0-1.0); Monocytes % (A) 2 %; Neutrophils # (A) 7.4 k/uL (1.3-7.7); Neutrophils % (A) 90 %; Platelet Count 224 k/uL (150-450); RBC 4.73 m/uL (3.80-5.40); RDW 14.5 % (11.5-15.5); WBC 8.2 k/uL (3.8-10.6)
[2023-01-31] MEDS ORDERED: FUROSEMIDE 10 MG/ML 4 ML VIAL IV STA (22:21)
[2023-01-31] MEDS ORDERED: NICOTINE 21MG/24HR PATCH TRANSDERM STA (22:22)
[2023-01-31 22:23] LABS: ALT 13 U/L (4-34); AST 18 U/L (14-36); African American GFR (CKD) >90 (>60 ml/min/1.73 sqM); Albumin 3.9 g/dL (3.5-5.0); Alkaline Phosphatase 71 U/L (38-126); Anion Gap 6 mmol/L; Blood Urea Nitrogen 8 mg/dL (7-17); Carbon Dioxide 27 mmol/L (22-30); Chloride 104 mmol/L (98-107); Glucose 165 mg/dL (74-99); Non-African American GFR(CKD) 79 (>60 ml/min/1.73 sqM); Potassium 3.6 mmol/L (3.5-5.1); Sodium 137 mmol/L (137-145); Total Bilirubin 0.7 mg/dL (0.2-1.3); Total Protein 6.9 g/dL (6.3-8.2)
[2023-01-31 22:29] LABS: NT-Pro-B-Type Natriuretic Pept 27100 pg/mL
[2023-01-31] MEDS ORDERED: NALOXONE 0.4 MG/ML 1 ML VIAL IV PRN (22:35)
[2023-01-31] MEDS: IPRATROPIUM-ALBUTEROL 3 ML NEB INHALATION SCH (23:02)
[2023-01-31] MEDS ORDERED: diphenhydrAMINE 25 MG CAP PO PRN (23:54)
[2023-02-01] MEDS ORDERED: ACETAMINOPHEN TAB 500 MG TAB PO PRN (00:01)
--- NOTE | 2023-02-01 01:49 | P.HPIM ---
History of Present Illness H&P Date: 01/31/23 Chief Complaint: shortness of breath 67-year-old female with A. fib on Coumadin, COPD, lung cancer in remission She was transferred to our facility from [place] due to congestive heart failure exacerbation for cardiology evaluation. Patient reports over the past 2 days she had worsening of her respiratory symptoms with exertional dyspnea that progressed to difficulty in breathing even while resting doing nothing she reports associated orthopnea denies any fevers denies any new onset coughing denies any chest pain denies any leg edema denies any abdominal pain nausea vomiting denies any changes in her urinary habits she reports chronic diarrhea. Patient continues to smoke denies any illicit drugs or alcohol Denies any recent traveling or hospital stay denies any history of blood clots Patient continues to smoke despite history of lung cancer she is currently in remission, denies any hemoptysis review of systems Pertinent positives as noted in HPI. All other systems were reviewed and are negative on exam Constitutional: No acute distress, conversant, pleasant Eyes: Anicteric sclerae, moist conjunctiva, Pupils equal round reactive to light ENMT: NC/AT Oropharynx clear, no erythema, or exudates Neck: Supple, no masses, or JVD No carotid bruits No thyromegaly Lungs: Diminished breath sounds with expiratory wheezing decreased breath sounds at lung basis bilaterally with inspiratory rales Clear to percussion Normal respiratory effort, no accessory muscle use Cardiovascular: Heart regular in rate and rhythm, No murmurs, gallops, or rubs No peripheral edema Abdominal: Soft Nontender, no guarding, rebound or rigidity Abdomen moving with respiration Normoactive bowel sounds No hepatomegaly, No splenomegaly No palpable mass No abdominal wall hernia noted Extremities: No digital cyanosis No clubbing Pedal pulses intact and symmetrical Radial pulses intact and symmetrical No calf tenderness Psychiatric: Alert and oriented to person, place and time Appropriate affect Neuro Muscles Strength 4/5 in all 4 extremities Sensation to light touch grossly present throughout Cranial nerves II-XII grossly intact Lymphatics: no palpable cervical or supraclavicular lymph nodes Past Medical History Past Medical History: Cancer, Heart Failure, COPD, CVA/TIA, GERD/Reflux, Hyperlipidemia, Hypertension, Myocardial Infarction (RI), Osteoarthritis (OA) Additional Past Medical History / Comment(s): "STATES HEART SKIPS BEATS", HX OF RI X2 (1ST UNKNOWN DATE, 2009)., LUNG CANCER PER PATIENT,. pain occurs at times in back and rt arm, shoulders,neck and hips, jun knees and spinal stenosis Last Myocardial Infarction Date:: 2009 History of Any Multi-Drug Resistant Organisms: None Reported Past Surgical History: Appendectomy, Cholecystectomy, Heart Catheterization With Stent, Hysterectomy, Orthopedic Surgery, Tubal Ligation Additional Past Surgical History / Comment(s): RIGHT ANKLE, EGD, heart stent x2 2009,2013 Past Anesthesia/Blood Transfusion Reactions: No Reported Reaction Date of Last Stent Placement:: 2013 Past Psychological History: Anxiety, Depression Smoking Status: Current every day smoker Past Alcohol Use History: Occasional Past Drug Use History: Marijuana - Past Family History Brother(s) Family Medical History: Cancer Additional Family Medical History / Comment(s): ESOPHAGEAL CANCER Sister(s) Family Medical History: Blood Disorder, Deep Vein Thrombosis (DVT), Pulmonary Embolus Additional Family Medical History / Comment(s): 1 SISTER HAD BLOOD DISORDER AND FROM CLOT. 1 SISTER HAD DVT. 1 SISTER HAD PE. Medications and Allergies Home Medications Medication Instructions Recorded Confirmed Type Isosorbide Mononitrate ER [Imdur] 60 mg PO DAILY 01/02/17 01/31/23 History Warfarin [Coumadin] 5 mg PO MOTUWETHFR@2100 05/27/19 01/31/23 History Pantoprazole Sodium [Protonix] 40 mg PO DAILY 07/03/19 01/31/23 History ALPRAZolam [Xanax] 0.5 mg PO BID PRN 01/31/23 01/31/23 History Acetaminophen/Diphenhydramine 1 tab PO HS PRN 01/31/23 01/31/23 History [Tylenol PM 500-25mg] Gabapentin 600 mg PO BID 01/31/23 01/31/23 History Losartan Potassium [Cozaar] 100 mg PO DAILY 01/31/23 01/31/23 History Metoprolol Tartrate [Lopressor] 50 mg PO BID 01/31/23 01/31/23 History Sertraline [Zoloft] 50 mg PO DAILY 01/31/23 01/31/23 History Warfarin [Coumadin] 7.5 mg PO SUSA@2100 01/31/23 01/31/23 History busPIRone HCL [Buspar] 30 mg PO BID 08/22/23 08/22/23 History Allergies Allergy/AdvReac Type Severity Reaction Status Date / Time ibuprofen [From Motrin] AdvReac Unknown Nausea & Verified 01/31/23 22:54 Vomiting tetracycline AdvReac Unknown Nausea & Verified 01/31/23 22:54 Vomiting Physical Exam Vitals: Vital Signs Temp Pulse Pulse Resp BP BP Pulse Ox 02/01/23 00:00 97.9 F 80 20 147/90 95 01/31/23 23:13 85 01/31/23 23:03 77 01/31/23 23:00 75 20 138/74 97 01/31/23 22:00 82 22 142/89 97 01/31/23 21:50 88 18 126/78 97 01/31/23 21:33 24 01/31/23 20:45 98.9 F 84 24 141/100 97 Intake and Output 01/31/23 01/31/23 02/01/23 14:59 22:59 06:59 Other: Weight 81.647 kg Results CBC & Chem 7: 01/31/23 21:59 01/31/23 21:59 Labs: Abnormal Lab Results - Last 24 Hours (Table) 01/31/23 01/31/23 Range/Units 21:59 21:59 Lymphocytes # 0.6 L (1.0-4.8) k/uL Glucose 165 H (74-99) mg/dL Assessment and Plan Assessment: 67-year-old female coming in with progressive exertional dyspnea she was transferred from [facility] for acute CHF exacerbation for cardiology evaluation I discussed the case with the ED doctor and accepted the admission f or acute congestive heart failure exacerbation with underlying COPD exacerbation with anticipated length of stay more than 2 midnights Acute CHF exacerbation COPD exacerbation Supplemental oxygen as needed Lasix 40 g IV push twice a day Chest x-ray from [facility] showed pulmonary vascular congestion ProBNP elevated 21,000 Troponins negative Renal function overall unremarkable sodium 137 potassium 3.6 BUN 8 creatinine 0.78, white count is 8.2 unremarkable Hemoglobin 14 Initiate prednisone 40 mg by mouth daily Continue with inhalers and DuoNeb's Check echocardiogram Cardiac monitoring Monitor vital signs closely Fluid restrictions 2 L per day Daily weights Chronic conditions Atrial fibrillation on Coumadin continue dosing per pharmacy Coronary artery disease and congestive heart failure, continue with statin, continue with metoprolol losartan and Imdur Full code DVT prophylaxis on Coumadin dosing by pharmacy
[2023-02-01] MEDS: busPIRone HCl 10 MG TAB PO SCH ×3 (01:51→21:08)
[2023-02-01] MEDS: ALPRAZolam 0.5 MG TAB PO PRN ×3 (01:52→21:08)
[2023-02-01] MEDS: GABAPENTIN 300 MG CAP PO SCH ×3 (01:52→21:08)
[2023-02-01] MEDS: METOPROLOL TARTRATE 50 MG TAB PO SCH ×3 (01:52→21:08)
[2023-02-01] MEDS: IPRATROPIUM-ALBUTEROL 3 ML NEB INHALATION SCH ×5 (03:11→20:54)
[2023-02-01] MEDS: predniSONE 20 MG TAB PO SCH (03:46)
[2023-02-01] MEDS: PANTOPRAZOLE 40 MG TABLET PO SCH (06:54)
[2023-02-01 07:07] LABS: Basophils % (A) 0 %; Eosinophils % (A) 0 %; HGB 13.6 gm/dL (11.4-16.0); Lymphocytes # (A) 0.6 k/uL (1.0-4.8); Lymphocytes % (A) 10 %; MCH 29.5 pg (25.0-35.0); MCV 89.2 fL (80.0-100.0); Mean Platelet Volume 8.6; Monocytes # (A) 0.3 k/uL (0-1.0); Monocytes % (A) 4 %; Neutrophils # (A) 5.2 k/uL (1.3-7.7); Neutrophils % (A) 85 %; Platelet Count 212 k/uL (150-450); RDW 14.5 % (11.5-15.5); WBC 6.1 k/uL (3.8-10.6)
[2023-02-01 07:18] LABS: African American GFR (CKD) 75 (>60 ml/min/1.73 sqM); Anion Gap 10 mmol/L; Blood Urea Nitrogen 12 mg/dL (7-17); Calcium 8.9 mg/dL (8.4-10.2); Carbon Dioxide 27 mmol/L (22-30); Chloride 102 mmol/L (98-107); Glucose 151 mg/dL (74-99); Non-African American GFR(CKD) 65 (>60 ml/min/1.73 sqM); Potassium 3.3 mmol/L (3.5-5.1); Sodium 139 mmol/L (137-145)
[2023-02-01] MEDS: ISOSORBIDE MONONITRATE ER 60 MG TAB.ER.24H PO SCH (08:16)
[2023-02-01] MEDS: LOSARTAN 50 MG TAB PO SCH (08:16)
[2023-02-01] MEDS: SERTRALINE 50 MG TAB PO SCH (08:16)
[2023-02-01] MEDS: FUROSEMIDE 10 MG/ML 4 ML VIAL IV SCH ×2 (08:49→21:08)
[2023-02-01] MEDS ORDERED: POTASSIUM CHLORIDE ER 20 MEQ TAB.ER PO STA (09:16)
--- NOTE | 2023-02-01 09:43 | P.CRDCN ---
History of Present Illness Consult date: 02/01/23 Consult reason: congestive heart failure (acute) History of present illness: History of present illness: This is a 67 year old female but does not follow with a media relations intern with past medical history of coronary artery disease with 2 stents placed in 2009, COPD, hypertension, hyperlipidemia, paroxysmal atrial fibrillation on Coumadin, CVA, gastroesophageal reflux disease, tobacco use and dependence. We have been asked to evaluate the patient for acute heart failure. Patient states she has had shortness of breath that started about 2 days ago along with wheezing and cough with clear sputum production. Family member has also been ill with the same. She was initially seen at [facility] and transferred to [facility]. Chest x-ray at [place] reported pulmonary venous congestion without overt failure. Patient has been seen by a media relations intern in [place] but has not followed up in 3 years. She continues to smoke since she was age 15 currently down to a half a pack per day. Regarding statin. She states she is unable to tolerate statins but she does not recall being on Pravachol in the past. She denies known history of diabetes. EKG none available. Telemetry sinus rhythm. WBC 6.1, hemoglobin 13.6. Potassium 3.3, sodium 139, creatinine 0.92. Troponin negative 1, proBNP 27,100 Home cardiac medications: Imdur 60 mg daily, losartan 100 mg daily, metoprolol tartrate 50 mg twice daily, Coumadin 5 mg Monday through Monday and 7.5 on Monday and Monday Review Of Systems: At the time of my evaluation: Constitutional: No fever, no chills. No weakness, fatigue or lethargy. EENT: No headache. No dizziness. Lungs: No shortness of breath, cough, no sputum production. No wheezing. Cardiovascular: No chest pain, no lower extremity edema. No palpitations. No paroxysmal nocturnal dyspnea. No orthopnea. No lightheadedness or dizziness. No syncopal episodes. Abdominal: No abdominal pain. No nausea, vomiting. No diarrhea. No constipation. No bloody or tarry stools. Genitourinary: No dysuria.. No urinary retention. Musculoskeletal: No myalgias. No muscle weakness, no frequent falls. No back pain. No neck pain. Integumentary: No wounds. No rash. No unusual bruising. Neurologic: No aphasia. No facial droop. No change in mentation. No head injury. No headache. Physical examination: Gen: This is a obese 67-year-old female. She is resting and appears to be comfortable and in no acute distress. VS: reviewed blood pressure 134/82, heart rate in the 60s to 80s, afebrile, pulse ox 96% on 2 L nasal cannula. HEENT: Head is atraumatic, normocephalic. Pupils equal, round. Sclerae is anic teric. NECK: Supple. No JVD. LUNGS: Bilateral wheezes or rhonchi. No intercostal retractions. HEART: Regular rate and rhythm. EXTREMITIES: No pedal edema. No calf tenderness. NEUROLOGICAL: Patient is awake, alert and oriented x3. Assessment: Acute bronchitis No sign of acute heart failure History of coronary artery disease with stenting in 2009 COPD Hypertension Hyperlipidemia Paroxysmal atrial fibrillation CVA Gastroesophageal reflux disease Active tobacco use and dependence Plan: Resume patient's home cardiac medications Obtain EKG Obtain A1c and lipid panel Obtain 2-D echocardiogram and Doppler study to assess cardiac structure and function Smoking cessation Start patient on Pravachol 20 mg daily Pharmacy is dosing Coumadin Further recommendations to follow based upon clinical course Thank you kindly for this consultation. Nurse practitioner note has been reviewed, I agree with documented findings and plan of care. Patient was seen and examined. Past Medical History Past Medical History: Cancer, Heart Failure, COPD, CVA/TIA, GERD/Reflux, Hyperlipidemia, Hypertension, Myocardial Infarction (IA), Osteoarthritis (OA) Additional Past Medical History / Comment(s): "STATES HEART SKIPS BEATS", HX OF IA X2 (1ST UNKNOWN DATE, 2009)., LUNG CANCER PER PATIENT,. pain occurs at times in back and rt arm, shoulders,neck and hips, jun knees and spinal stenosis Last Myocardial Infarction Date:: 2009 History of Any Multi-Drug Resistant Organisms: None Reported Past Surgical History: Appendectomy, Cholecystectomy, Heart Catheterization With Stent, Hysterectomy, Orthopedic Surgery, Tubal Ligation Additional Past Surgical History / Comment(s): RIGHT ANKLE, EGD, heart stent x2 2009,2013 Past Anesthesia/Blood Transfusion Reactions: No Reported Reaction Date of Last Stent Placement:: 2013 Past Psychological History: Anxiety, Depression Smoking Status: Current every day smoker Past Alcohol Use History: Occasional Past Drug Use History: Marijuana - Past Family History Brother(s) Family Medical History: Cancer Additional Family Medical History / Comment(s): ESOPHAGEAL CANCER Sister(s) Family Medical History: Blood Disorder, Deep Vein Thrombosis (DVT), Pulmonary Embolus Additional Family Medical History / Comment(s): 1 SISTER HAD BLOOD DISORDER AND FROM CLOT. 1 SISTER HAD DVT. 1 SISTER HAD PE. Medications and Allergies Home Medications Medication Instructions Recorded Confirmed Type Isosorbide Mononitrate ER [Imdur] 60 mg PO DAILY 01/02/17 01/31/23 History Warfarin [Coumadin] 5 mg PO MOTUWETHFR@2100 05/27/19 01/31/23 History Pantoprazole Sodium [Protonix] 40 mg PO DAILY 07/03/19 01/31/23 History ALPRAZolam [Xanax] 0.5 mg PO BID PRN 01/31/23 01/31/23 History Acetaminophen/Diphenhydramine 1 tab PO HS PRN 01/31/23 01/31/23 History [Tylenol PM 500-25mg] Gabapentin 600 mg PO BID 01/31/23 01/31/23 History Losartan Potassium [Cozaar] 100 mg PO DAILY 01/31/23 01/31/23 History Metoprolol Tartrate [Lopressor] 50 mg PO BID 01/31/23 01/31/23 History Sertraline [Zoloft] 50 mg PO DAILY 01/31/23 01/31/23 History Warfarin [Coumadin] 7.5 mg PO SUSA@2100 01/31/23 01/31/23 History busPIRone HCL [Buspar] 30 mg PO BID 01/31/23 01/31/23 History Allergies Allergy/AdvReac Type Severity Reaction Status Date / Time ibuprofen [From Motrin] AdvReac Unknown Nausea & Verified 01/31/23 22:54 Vomiting tetracycline AdvReac Unknown Nausea & Verified 01/31/23 22:54 Vomiting Physical Exam Vitals: Vital Signs Temp Pulse Pulse Resp BP BP Pulse Ox 02/01/23 08:20 87 02/01/23 08:15 97 02/01/23 08:09 87 02/01/23 07:18 98.3 F 69 14 134/82 96 02/01/23 03:21 84 02/01/23 03:11 80 02/01/23 00:00 97.9 F 80 20 147/90 95 01/31/23 23:13 85 01/31/23 23:03 77 01/31/23 23:00 75 20 138/74 97 01/31/23 22:00 82 22 142/89 97 01/31/23 21:50 88 18 126/78 97 01/31/23 21:33 24 01/31/23 20:45 98.9 F 84 24 141/100 97 Intake and Output 01/31/23 02/01/23 02/01/23 22:59 06:59 14:59 Intake Total 237 Balance 237 Intake: Oral 237 Other: Voiding Method Toilet # Voids 2 Weight 81.647 kg 82.7 kg Results 02/01/23 05:52 02/01/23 05:52 Cardiac Enzymes 01/31/23 01/31/23 Range/Units 21:59 21:59 AST 18 (14-36) U/L Troponin I 0.012 (0.000-0.034) ng/mL CBC 01/31/23 02/01/23 Range/Units 21:59 05:52 WBC 8.2 6.1 (3.8-10.6) k/uL RBC 4.73 4.60 (3.80-5.40) m/uL Hgb 14.0 13.6 (11.4-16.0) gm/dL Hct 42.3 41.0 (34.0-46.0) % Plt Count 224 212 (150-450) k/uL Comprehensive Metabolic Panel 01/31/23 02/01/23 Range/Units 21:59 05:52 Sodium 137 139 (137-145) mmol/L Potassium 3.6 3.3 L (3.5-5.1) mmol/L Chloride 104 102 (98-107) mmol/L Carbon Dioxide 27 27 (22-30) mmol/L BUN 8 12 (7-17) mg/dL Creatinine 0.78 0.92 (0.52-1.04) mg/dL Glucose 165 H 151 H (74-99) mg/dL Calcium 9.0 8.9 (8.4-10.2) mg/dL AST 18 (14-36) U/L ALT 13 (4-34) U/L Alkaline Phosphatase 71 (38-126) U/L Total Protein 6.9 (6.3-8.2) g/dL Albumin 3.9 (3.5-5.0) g/dL Current Medications Generic Name Dose Route Start Last Admin Trade Name Freq PRN Reason Stop Dose Admin Acetaminophen 1 mg 02/01/23 00:01 Acetaminophen Tab 500 Mg Tab PO HS PRN SLEEP Albuterol/Ipratropium 3 ml 02/01/23 00:00 02/01/23 08:08 Ipratropium-Albuterol 3 Ml Neb INHALATION 3 ml RT-Q4H SHIRLEY Administration Alprazolam 0.5 mg 01/31/23 23:54 02/01/23 01:52 Alprazolam 0.5 Mg Tab PO 0.5 mg BID PRN Administration Anxiety Buspirone HCl 30 mg 01/31/23 23:45 02/01/23 08:19 Buspirone Hcl 10 Mg Tab PO 30 mg BID SHIRLEY Administration Diphenhydramine HCl 25 mg 01/31/23 23:54 Diphenhydramine 25 Mg Cap PO HS PRN SLEEP Furosemide 40 mg 02/01/23 09:00 02/01/23 08:49 Furosemide 10 Mg/Ml 4 Ml Vial IV 40 mg BID SHIRLEY Administration Gabapentin 600 mg 01/31/23 23:45 02/01/23 01:52 Gabapentin 300 Mg Cap PO 600 mg BID SHIRLEY Administration Isosorbide Mononitrate 60 mg 02/01/23 09:00 02/01/23 08:16 Isosorbide Mononitrate Er 60 Mg Tab.Er.24h PO 60 mg DAILY SHIRLEY Administration Losartan Potassium 100 mg 02/01/23 09:00 02/01/23 08:16 Losartan 50 Mg Tab PO 100 mg DAILY SHIRLEY Administration Metoprolol Tartrate 50 mg 01/31/23 23:45 02/01/23 01:52 Metoprolol Tartrate 50 Mg Tab PO 50 mg BID SHIRLEY Administration Miscellaneous Information 0 each 01/31/23 23:59 Warfarin Per Pharmacy MISCELLANE DIRECTED PRN PER PROTOCOL Naloxone HCl 0.2 mg 01/31/23 22:35 Naloxone 0.4 Mg/Ml 1 Ml Vial IV Q2M PRN Opioid Reversal Pantoprazole Sodium 40 mg 02/01/23 07:30 02/01/23 06:54 Pantoprazole 40 Mg Tablet PO 40 mg [id number] SHIRLEY Administration Pravastatin Sodium 20 mg 02/01/23 21:00 Pravastatin Sodium 20 Mg Tab PO HS SHIRLEY Prednisone 40 mg 02/01/23 01:45 02/01/23 03:46 Prednisone 20 Mg Tab PO 40 mg DAILY SHIRLEY Administration Sertraline HCl 50 mg 02/01/23 09:00 02/01/23 08:16 Sertraline 50 Mg Tab PO 50 mg DAILY SHIRLEY Administration Intake and Output 01/31/23 02/01/23 02/01/23 22:59 06:59 14:59 Intake Total 237 Balance 237 Intake: Oral 237 Other: Voiding Method Toilet # Voids 2 Weight 81.647 kg 82.7 kg 02/01/23 05:52 02/01/23 05:52
--- NOTE | 2023-02-01 10:43 | CA ---
Transthoracic Echo Report Name: Sandra Gu Age: 67 Gender: F : 1955 Exam Date: 02/01/2023 07:40 Exam Location: [place] [facility] Ht (in): 68 Wt (lb): 180 Ordering Physician: Arianna Krishnan MD Attending/Referring Phys: [id number], Eulogio Ms Sql Server Developer Norma Elam, [facility] Procedure CPT: Indications: chf Cardiac Hx: Technical Quality: Good Contrast 1: Total Dose (mL): Contrast 2: Total Dose (mL): MEASUREMENTS (Male / Female) Normal Values 2D ECHO LV Diastolic Diameter PLAX 4.6 cm 4.2 - 5.9 / 3.9 - 5.3 cm LV Systolic Diameter PLAX 3.9 cm IVS Diastolic Thickness 1.7 cm 0.6 - 1.0 / 0.6 - 0.9 cm LVPW Diastolic Thickness 1.5 cm 0.6 - 1.0 / 0.6 - 0.9 cm LV Relative Wall Thickness 0.7 RV Internal Dim ED PLAX 3.3 cm LA Systolic Diameter LX 3.5 cm 3.0 - 4.0 / 2.7 - 3.8 cm LV Diastolic Volume MOD 4C 133.8 cm??? LV Systolic Volume MOD 4C 81.8 cm??? LV Ejection Fraction MOD 4C 38.9 % LV Cardiac Index MOD 4C 1980.2 cm???/min???m??? LV Diastolic Length 4C 7.5 cm LV Systolic Length 4C 6.8 cm LV Diastolic Volume MOD 2C 80.1 cm??? LV Systolic Volume MOD 2C 48.5 cm??? LV Ejection Fraction MOD 2C 39.4 % LV Cardiac Index MOD 2C 1201.6 cm???/min???m??? LV Diastolic Length 2C 7.7 cm LV Systolic Length 2C 7.0 cm LA Volume 69.3 cm??? 18 - 58 / 22 - 52 cm??? M-MODE Aortic Root Diameter MM 3.0 cm MV E Point Septal Separation 1.1 cm AV Cusp Separation MM 2.3 cm DOPPLER AV Peak Velocity 146.5 cm/s AV Peak Gradient 8.6 mmHg MV Area PHT 2.0 cm??? Mitral E Point Velocity 48.6 cm/s Mitral A Point Velocity 80.4 cm/s Mitral E to A Ratio 0.6 MV Deceleration Time 379.1 ms MV E' Velocity 3.5 cm/s Mitral E to MV E' Ratio 13.8 TR Peak Velocity 252.1 cm/s TR Peak Gradient 25.4 mmHg Right Ventricular Systolic Press 29.9 mmHg FINDINGS Left Ventricle Left ventricular ejection fraction is estimated at 40-45 %. Left ventricular cavity size at the upper limits of normal. Severely increased septal wall thickness. Moderately increased posterior wall thickness. Infero basel wall hypokinesis Right Ventricle Mild right ventricular dilatation. Right ventricular systolic pressure within normal limits. Right Atrium Normal right atrial size. Left Atrium Moderately increased left atrial volume. Mitral Valve Structurally normal mitral valve. Trace mitral regurgitation. Aortic Valve Trileaflet aortic valve. No aortic valve stenosis or regurgitation. Tricuspid Valve Structurally normal tricuspid valve. Trace to mild tricuspid regurgitation. Pulmonic Valve Pulmonic valve not well visualized. No pulmonic regurgitation. Pericardium No pericardial effusion. Aorta Normal size aortic root and proximal ascending aorta. CONCLUSIONS LVH with reduced LV systolic function ejection fraction 40% Mildly enlarged right ventricle Previewed by: Dr. Nacho Mo MD (Electronically Signed) Final Date: 01 February 2023 10:42
[2023-02-01 11:26] LABS: INR 2.26 sec (0.93-1.11); Prothrombin Time 24.8 sec (9.9-11.9)
--- NOTE | 2023-02-01 14:07 | P.PN ---
Subjective Progress Note Date: 02/01/23 Hospital Course: 67-year-old female with A. fib on Coumadin, COPD, lung cancer status post resection in remission presenting from outside hospital for exertional dyspnea and orthopnea. Chest x-ray from [facility] showed pulmonary vascular congestion, ProBNP elevated 27,000, Troponins negative. Patient admitted for acute CHF exacerbation and COPD exacerbation. Echocardiogram pending. Cardiology consulted. Subjective: She is seen and examined at bedside. No acute events overnight. Continues to have exertional dyspnea as well as orthopnea. Pertinent positives and negatives as discussed above, a complete review of systems was performed and all other systems are negative. Vitals Signs Reviewed. General: nontoxic, no distress, appears at stated age Derm: warm, dry Head: atraumatic, normocephalic, symmetric Eyes: EOMI, no lid lag, anicteric sclera Mouth: no lip lesion, mucus membranes moist Cardiovascular: S1S2 reg, no murmur Lungs: Bilateral rales , scattered wheezing no accessory muscle use, supplemental oxygen Abdominal: soft, nontender to palpation, no guarding, no appreciable organomegaly Ext: no gross muscle atrophy, no edema, no contractures Neuro: CN II-XI grossly intact, no focal neuro deficits Psych: Alert, oriented, appropriate affect Data Reviewed Today: Pertinent Labs: Hemoglobin 13.6, potassium 3.3, creatinine 0.9 Imaging: Echocardiogram report reviewed, shows LVEF 40-45% inferior basilar wall hypokinesis, EKG and apparently interpreted, shows sinus rhythm with frequent PACs Assessment and Plan: Active: Acute hypoxic respiratory failure COPD exacerbation Acute bronchitis Suspected CHF exacerbation, LVEF 4045% Hypokalemia -Continue to wean oxygen -On oral prednisone -Continue DuoNebs -Chest x-ray ordered -Cardiology note reviewed, unlikely to be CHF exacerbation -Patient continued on IV Lasix, monitor renal function -Patient does have slightly reduced systolic function on echocardiogram with wall motion abnormalities -Would benefit from ischemic workup, likely outpatient -Oral potassium 40 mEq given, BMP tomorrow Chronic: Paroxysmal atrial fibrillation on warfarin Dyslipidemia Lung cancer status post resection Hypertension Depression/anxiety DVT ppx: Warfarin Code status: Full code Anticipated discharge place: Home Anticipated discharge time: 1-2 days Objective - Vital Signs Vital signs: Vital Signs Temp 98.6 F 02/01/23 12:36 Pulse 79 02/01/23 12:36 Resp 17 02/01/23 12:36 BP 112/68 02/01/23 12:36 Pulse Ox 96 02/01/23 12:36 FiO2 Intake & Output 01/31/23 02/01/23 02/01/23 18:59 06:59 18:59 Intake Total 237 Balance 237 Weight 82.7 kg Intake: Oral 237 Other: Voiding Method Toilet Toilet # Voids 2 - Labs CBC & Chem 7: 02/01/23 05:52 02/01/23 05:52 Labs: Abnormal Lab Results - Last 24 Hours (Table) 01/31/23 01/31/23 02/01/23 Range/Units 21:59 21:59 05:52 Lymphocytes # 0.6 L 0.6 L (1.0-4.8) k/uL PT (9.9-11.9) sec INR (0.93-1.11) sec Potassium (3.5-5.1) mmol/L Glucose 165 H (74-99) mg/dL 02/01/23 02/01/23 Range/Units 05:52 05:52 Lymphocytes # (1.0-4.8) k/uL PT 24.8 H (9.9-11.9) sec INR 2.26 H (0.93-1.11) sec Potassium 3.3 L (3.5-5.1) mmol/L Glucose 151 H (74-99) mg/dL
--- NOTE | 2023-02-01 15:15 | XR ---
EXAMINATION TYPE: XR chest 1V portable DATE OF EXAM: 02/01/2023 COMPARISON: 07/15/2019 INDICATION: Hypoxia TECHNIQUE: Single frontal view of the chest is obtained. FINDINGS: The heart size is normal. The pulmonary vasculature is normal. Some minimal infiltrate is along left diaphragm. Correlate for atelectasis. IMPRESSION: 1. Minimal left basilar atelectasis.
[2023-02-01] MEDS ORDERED: WARFARIN 5 MG TAB PO SCH (21:00)
[2023-02-01] MEDS: PRAVASTATIN SODIUM 20 MG TAB PO SCH (21:08)
[2023-02-01] MEDS: WARFARIN 5 MG TAB PO SCH (21:08)
[2023-02-02] MEDS: IPRATROPIUM-ALBUTEROL 3 ML NEB INHALATION SCH ×6 (00:34→21:36)
[2023-02-02 04:40] LABS: INR 2.1 (<1.2); Prothrombin Time 20.4 sec (9.0-12.0)
[2023-02-02] MEDS: MORPHINE SULFATE 4 MG/ML SYRINGE IVP PRN ×4 (04:45→22:13)
[2023-02-02] MEDS: ALPRAZolam 0.5 MG TAB PO PRN ×2 (04:53→22:11)
[2023-02-02] MEDS: PANTOPRAZOLE 40 MG TABLET PO SCH (06:49)
[2023-02-02] MEDS: LOSARTAN 50 MG TAB PO SCH (09:41)
[2023-02-02] MEDS: predniSONE 20 MG TAB PO SCH (09:41)
[2023-02-02] MEDS: ISOSORBIDE MONONITRATE ER 60 MG TAB.ER.24H PO SCH (09:41)
[2023-02-02] MEDS: METOPROLOL TARTRATE 50 MG TAB PO SCH ×2 (09:41→22:12)
[2023-02-02] MEDS: SERTRALINE 50 MG TAB PO SCH (09:41)
[2023-02-02] MEDS: GABAPENTIN 300 MG CAP PO SCH ×2 (09:41→22:13)
[2023-02-02] MEDS: busPIRone HCl 10 MG TAB PO SCH ×2 (09:41→22:13)
[2023-02-02] MEDS ORDERED: ALBUTEROL NEBULIZED 2.5 MG/3 ML INHALATION PRN (10:05)
[2023-02-02] MEDS ORDERED: guaiFENesin-DM 100-10MG/5ML 10 ML CUP PO PRN (10:06)
--- NOTE | 2023-02-02 11:07 | P.PN ---
Subjective Progress Note Date: 02/02/23 Hospital Course: 67-year-old female with A. fib on Coumadin, COPD, lung cancer status post resec tion in remission presenting from outside hospital for exertional dyspnea and orthopnea. Chest x-ray from [facility] showed pulmonary vascular congestion, ProBNP elevated 27,000, Troponins negative. Patient admitted for suspected acute CHF exacerbation and COPD exacerbation in the setting of acute bronchitis. Echocardiogram shows LVEF 40-45% inferior basilar wall hypokinesis. Cardiology consulted. Unlikely to be a CHF exacerbation. Patient currently on oral steroids as well as bronchodilators. Subjective: She is seen and examined at bedside. No acute events overnight. Continues to have significant productive cough. Pertinent positives and negatives as discussed above, a complete review of systems was performed and all other systems are negative. Vitals Signs Reviewed. General: nontoxic, no distress, appears at stated age Derm: warm, dry Head: atraumatic, normocephalic, symmetric Eyes: EOMI, no lid lag, anicteric sclera Mouth: no lip lesion, mucus membranes moist Cardiovascular: S1S2 reg, no murmur Lungs: scattered wheezing no accessory muscle use, supplemental oxygen Abdominal: soft, nontender to palpation, no guarding, no appreciable organomegaly Ext: no gross muscle atrophy, no edema, no contractures Neuro: CN II-XI grossly intact, no focal neuro deficits Psych: Alert, oriented, appropriate affect Data Reviewed Today: Pertinent Labs: BMP and magnesium pending, will be reviewed when available Imaging: No new imaging Assessment and Plan: Active: Acute hypoxic respiratory failure COPD exacerbation Acute bronchitis Systolic CHF, LVEF 4045%, not in exacerbation Hypokalemia -Continue to wean oxygen -On oral prednisone -Continue DuoNebs, when necessary albuterol also added -Cough suppressant added -Cardiology following -Lasix discontinued -Patient does have slightly reduced systolic function on echocardiogram with wall motion abnormalities -Would benefit from ischemic workup, likely outpatient -Repeat BMP pending Chronic: Paroxysmal atrial fibrillation on warfarin Dyslipidemia Lung cancer status post resection Hypertension Depression/anxiety DVT ppx: Warfarin Code status: Full code Anticipated discharge place: Home Anticipated discharge time: 1-2 days Objective - Vital Signs Vital signs: Vital Signs Temp 98.4 F 02/02/23 07:28 Pulse 92 02/02/23 08:22 Resp 19 02/02/23 08:00 BP 140/80 02/02/23 07:28 Pulse Ox 94 L 02/02/23 07:28 FiO2 Intake & Output 02/01/23 02/02/23 02/02/23 18:59 06:59 18:59 Intake Total 750 Balance 750 Weight 82.7 kg 81.4 kg Intake: Oral 750 Other: Voiding Method Toilet Toilet Toilet # Voids 2 - Labs CBC & Chem 7: 02/01/23 05:52 02/01/23 05:52 Labs: Abnormal Lab Results - Last 24 Hours (Table) 02/01/23 02/02/23 Range/Units 05:52 03:33 PT 24.8 H 20.4 H (9.9-11.9) sec INR 2.26 H 2.1 H (0.93-1.11) sec
[2023-02-02] MEDS: NICOTINE 21MG/24HR PATCH TRANSDERM SCH (13:13)
[2023-02-02 15:43] LABS: African American GFR (CKD) 65 (>60 ml/min/1.73 sqM); Anion Gap 5 mmol/L; Blood Urea Nitrogen 24 mg/dL (7-17); Calcium 9.1 mg/dL (8.4-10.2); Carbon Dioxide 35 mmol/L (22-30); Chloride 97 mmol/L (98-107); Glucose 139 mg/dL (74-99); Magnesium 1.9 mg/dL (1.6-2.3); Non-African American GFR(CKD) 56 (>60 ml/min/1.73 sqM); Potassium 4.5 mmol/L (3.5-5.1); Sodium 137 mmol/L (137-145)
[2023-02-02] MEDS: PRAVASTATIN SODIUM 20 MG TAB PO SCH (22:12)
[2023-02-02] MEDS: WARFARIN 5 MG TAB PO SCH (22:42)
[2023-02-03 00:32] LABS: BUN/Creat Ratio 18.09 Ratio (12.00-20.00); Blood Urea Nitrogen 19.9 mg/dL (9.0-27.0); Calcium 9.7 mg/dL (8.7-10.3); Carbon Dioxide 28.3 mmol/L (21.6-31.8); Chloride 101 mmol/L (96-109); Glucose 96 mg/dL (70-110); Magnesium 1.8 mg/dL (1.5-2.4); Potassium 3.8 mmol/L (3.5-5.5); Sodium 143 mmol/L (135-145)
[2023-02-03] MEDS: IPRATROPIUM-ALBUTEROL 3 ML NEB INHALATION SCH ×6 (00:58→21:00)
[2023-02-03] MEDS: MORPHINE SULFATE 4 MG/ML SYRINGE IVP PRN ×5 (02:51→20:29)
[2023-02-03] MEDS: PANTOPRAZOLE 40 MG TABLET PO SCH (06:57)
[2023-02-03] MEDS: GABAPENTIN 300 MG CAP PO SCH ×2 (08:22→20:29)
[2023-02-03] MEDS: predniSONE 20 MG TAB PO SCH (08:22)
[2023-02-03] MEDS: NICOTINE 21MG/24HR PATCH TRANSDERM SCH (08:22)
[2023-02-03] MEDS: METOPROLOL TARTRATE 50 MG TAB PO SCH ×2 (08:22→20:29)
[2023-02-03] MEDS: ISOSORBIDE MONONITRATE ER 60 MG TAB.ER.24H PO SCH (08:23)
[2023-02-03] MEDS: LOSARTAN 50 MG TAB PO SCH (08:23)
[2023-02-03] MEDS: busPIRone HCl 10 MG TAB PO SCH ×2 (08:23→20:28)
[2023-02-03] MEDS: SERTRALINE 50 MG TAB PO SCH (08:23)
[2023-02-03 09:06] LABS: INR 1.8 (<1.2); Prothrombin Time 18.2 sec (9.0-12.0)
--- NOTE | 2023-02-03 13:04 | P.PN ---
Subjective Progress Note Date: 02/03/23 Hospital Course: 67-year-old female with A. fib on Coumadin, COPD, lung cancer status post resec tion in remission presenting from outside hospital for exertional dyspnea and orthopnea. Chest x-ray from [facility] showed pulmonary vascular congestion, ProBNP elevated 27,000, Troponins negative. Patient admitted for suspected acute CHF exacerbation and COPD exacerbation in the setting of acute bronchitis. Echocardiogram shows LVEF 40-45% inferior basilar wall hypokinesis. Cardiology consulted. Unlikely to be a CHF exacerbation. Patient currently on oral steroids as well as bronchodilators. Respiratory function improving. Discharged home tomorrow. Subjective: She is seen and examined at bedside. No acute events overnight. Continues to have significant productive cough. Although improving. Pertinent positives and negatives as discussed above, a complete review of s ystems was performed and all other systems are negative. Vitals Signs Reviewed. General: nontoxic, no distress, appears at stated age Derm: warm, dry Head: atraumatic, normocephalic, symmetric Eyes: EOMI, no lid lag, anicteric sclera Mouth: no lip lesion, mucus membranes moist Cardiovascular: S1S2 reg, no murmur Lungs: scattered wheezing no accessory muscle use, supplemental oxygen Abdominal: soft, nontender to palpation, no guarding, no appreciable organomegaly Ext: no gross muscle atrophy, no edema, no contractures Neuro: CN II-XI grossly intact, no focal neuro deficits Psych: Alert, oriented, appropriate affect Data Reviewed Today: Pertinent Labs: INR 1.8 this morning Imaging: No new imaging Assessment and Plan: Active: Acute hypoxic respiratory failure COPD exacerbation Acute bronchitis Systolic CHF, LVEF 4045%, not in exacerbation Hypokalemia, resolved -Continue to wean oxygen -On oral prednisone -Continue DuoNebs, when necessary albuterol -Cough suppressant -Cardiology following -Lasix has been discontinued -Patient does have slightly reduced systolic function on echocardiogram with wall motion abnormalities -Would benefit from ischemic workup, likely outpatient Chronic: Paroxysmal atrial fibrillation on warfarin Dyslipidemia Lung cancer status post resection Hypertension Depression/anxiety DVT ppx: Warfarin Code status: Full code Anticipated discharge place: Home Anticipated discharge time: Tomorrow Objective - Vital Signs Vital signs: Vital Signs Temp 98.5 F 02/03/23 07:20 Pulse 63 02/03/23 10:00 Resp 16 02/03/23 10:00 BP 145/90 08/25/23 07:20 Pulse Ox 87 L 02/03/23 09:17 FiO2 21 02/03/23 09:17 Intake & Output 02/02/23 02/03/23 02/03/23 18:59 06:59 18:59 Weight 81.6 kg Other: Voiding Method Toilet Toilet # Voids 4 - Labs CBC & Chem 7: 02/01/23 05:52 02/02/23 15:10 Labs: Abnormal Lab Results - Last 24 Hours (Table) 02/02/23 02/02/23 02/03/23 Range/Units 03:33 15:10 07:45 PT 18.2 H (9.0-12.0) sec INR 1.8 H (<1.2) Chloride 97 L (98-107) mmol/L Carbon Dioxide 35 H (22-30) mmol/L Anion Gap 13.70 H (4.00-12.00) mmol/L BUN 24 H (7-17) mg/dL Est GFR (CKD-EPI) 55 L (>=60) Glucose 139 H (74-99) mg/dL
[2023-02-03] MEDS: ALPRAZolam 0.5 MG TAB PO PRN (13:21)
[2023-02-03 13:58] VITALS: BMI 27.3
[2023-02-03] MEDS: PRAVASTATIN SODIUM 20 MG TAB PO SCH (20:29)
[2023-02-03] MEDS ORDERED: WARFARIN 7.5 MG TAB PO ONE (21:00)
[2023-02-04] MEDS: IPRATROPIUM-ALBUTEROL 3 ML NEB INHALATION SCH ×6 (00:02→20:35)
[2023-02-04] MEDS: MORPHINE SULFATE 4 MG/ML SYRINGE IVP PRN ×6 (00:58→21:58)
[2023-02-04] MEDS: ALPRAZolam 0.5 MG TAB PO PRN ×3 (00:58→21:58)
[2023-02-04] MEDS: PANTOPRAZOLE 40 MG TABLET PO SCH (08:03)
[2023-02-04 08:27] LABS: INR 2.2 (<1.2); Prothrombin Time 21.9 sec (9.0-12.0)
[2023-02-04] MEDS: predniSONE 20 MG TAB PO SCH (09:05)
[2023-02-04] MEDS: LOSARTAN 50 MG TAB PO SCH (09:05)
[2023-02-04] MEDS: ISOSORBIDE MONONITRATE ER 60 MG TAB.ER.24H PO SCH (09:06)
[2023-02-04] MEDS: GABAPENTIN 300 MG CAP PO SCH ×2 (09:06→20:00)
[2023-02-04] MEDS: SERTRALINE 50 MG TAB PO SCH (09:06)
[2023-02-04] MEDS: METOPROLOL TARTRATE 50 MG TAB PO SCH ×2 (09:06→20:01)
[2023-02-04] MEDS: busPIRone HCl 10 MG TAB PO SCH ×2 (09:06→20:01)
[2023-02-04] MEDS: NICOTINE 21MG/24HR PATCH TRANSDERM SCH (09:07)
[2023-02-04] MEDS: LACTOBACILLUS ACIDOPHILUS/PECT 1 EACH CAPSULE PO SCH ×2 (11:40→20:01)
[2023-02-04] MEDS: AMOXIC-POT CLAV 875-125MG 1 EACH TAB PO SCH ×2 (11:40→20:01)
--- NOTE | 2023-02-04 13:26 | P.PN ---
Subjective Progress Note Date: 02/04/23 Hospital Course: 67-year-old female with A. fib on Coumadin, COPD, lung cancer status post resection in remission presenting from outside hospital for exertional dyspnea and orthopnea. Chest x-ray from [facility] showed pulmonary vascular congestion, ProBNP elevated 27,000, Troponins negative. Patient admitted for suspected acute CHF exacerbation and COPD exacerbation in the setting of acute bronchitis. Echocardiogram shows LVEF 40-45% inferior basilar wall hypokinesis. Cardiology consulted. Unlikely to be a CHF exacerbation. Patient currently on oral steroids as well as bronchodilators. Continues to have persistent cough with audible wheezing. Started on antibiotics. Subjective: She is seen and examined at bedside. No acute events overnight. Continues to have significant productive cough. Still requiring supplemental oxygen Pertinent positives and negatives as discussed above, a complete review of systems was performed and all other systems are negative. Vitals Signs Reviewed. General: nontoxic, no distress, appears at stated age Derm: warm, dry Head: atraumatic, normocephalic, symmetric Eyes: EOMI, no lid lag, anicteric sclera Mouth: no lip lesion, mucus membranes moist Cardiovascular: S1S2 reg, no murmur Lungs: scattered wheezing no accessory muscle use, supplemental oxygen Abdominal: soft, nontender to palpation, no guarding, no appreciable organomegaly Ext: no gross muscle atrophy, no edema, no contractures Neuro: CN II-XI grossly intact, no focal neuro deficits Psych: Alert, oriented, appropriate affect Data Reviewed Today: Pertinent Labs: INR 2.2 Imaging: No new imaging Assessment and Plan: Active: Acute hypoxic respiratory failure COPD exacerbation Acute bronchitis Systolic CHF, LVEF 4045%, not in exacerbation Hypokalemia, resolved -Continue to wean oxygen -On oral prednisone -Continue DuoNebs, when necessary albuterol -Cough suppressant -Started on Augmentin, as patient continues to have productive cough, still requiring supplemental oxygen -Cardiology following -Lasix has been discontinued -Patient does have slightly reduced systolic function on echocardiogram with wall motion abnormalities -Would benefit from ischemic workup, likely outpatient Chronic: Paroxysmal atrial fibrillation on warfarin Dyslipidemia Lung cancer status post resection Hypertension Depression/anxiety DVT ppx: Warfarin Code status: Full code Anticipated discharge place: Home Anticipated discharge time: Likely Monday with home care Objective - Vital Signs Vital signs: Vital Signs Temp 96.7 F L 02/04/23 07:39 Pulse 74 02/04/23 07:39 Resp 17 02/04/23 07:39 BP 151/91 02/04/23 07:39 Pulse Ox 94 L 02/04/23 09:59 FiO2 21 02/03/23 09:17 Intake & Output 02/03/23 02/04/23 02/04/23 18:59 06:59 18:59 Weight 81.6 kg 84.5 kg Other: Voiding Method Toilet # Voids 3 2 - Labs CBC & Chem 7: 02/01/23 05:52 02/02/23 15:10 Labs: Abnormal Lab Results - Last 24 Hours (Table) 02/04/23 Range/Units 07:34 PT 21.9 H (9.0-12.0) sec INR 2.2 H (<1.2)
[2023-02-04] MEDS: WARFARIN 3 MG TAB PO SCH (18:00)
[2023-02-04] MEDS: PRAVASTATIN SODIUM 20 MG TAB PO SCH (20:01)
[2023-02-04] MEDS ORDERED: WARFARIN 7.5 MG TAB PO SCH (21:00)
[2023-02-04] MEDS ORDERED: WARFARIN 5 MG TAB PO SCH (21:00)
[2023-02-05] MEDS: IPRATROPIUM-ALBUTEROL 3 ML NEB INHALATION SCH ×6 (00:40→20:45)
[2023-02-05] MEDS: MORPHINE SULFATE 4 MG/ML SYRINGE IVP PRN ×5 (03:16→20:20)
[2023-02-05 07:06] LABS: INR 2.7 (<1.2); Prothrombin Time 26.2 sec (9.0-12.0)
[2023-02-05] MEDS: PANTOPRAZOLE 40 MG TABLET PO SCH (07:23)
[2023-02-05] MEDS: LOSARTAN 50 MG TAB PO SCH (08:27)
[2023-02-05] MEDS: GABAPENTIN 300 MG CAP PO SCH ×2 (08:27→20:20)
[2023-02-05] MEDS: ISOSORBIDE MONONITRATE ER 60 MG TAB.ER.24H PO SCH (08:27)
[2023-02-05] MEDS: busPIRone HCl 10 MG TAB PO SCH ×2 (08:28→20:20)
[2023-02-05] MEDS: SERTRALINE 50 MG TAB PO SCH (08:28)
[2023-02-05] MEDS: METOPROLOL TARTRATE 50 MG TAB PO SCH ×2 (08:28→20:20)
[2023-02-05] MEDS: predniSONE 20 MG TAB PO SCH (08:29)
[2023-02-05] MEDS: NICOTINE 21MG/24HR PATCH TRANSDERM SCH (08:29)
[2023-02-05] MEDS: AMOXIC-POT CLAV 875-125MG 1 EACH TAB PO SCH ×2 (08:29→20:20)
[2023-02-05] MEDS: LACTOBACILLUS ACIDOPHILUS/PECT 1 EACH CAPSULE PO SCH ×2 (09:22→20:20)
[2023-02-05] MEDS: ALPRAZolam 0.5 MG TAB PO PRN ×2 (11:11→20:20)
--- NOTE | 2023-02-05 11:31 | P.PN ---
Subjective Progress Note Date: 02/05/23 Hospital Course: 67-year-old female with A. fib on Coumadin, COPD, lung cancer status post rese ction in remission presenting from outside hospital for exertional dyspnea and orthopnea. Chest x-ray from [facility] showed pulmonary vascular congestion, ProBNP elevated 27,000, Troponins negative. Patient admitted for suspected acute CHF exacerbation and COPD exacerbation in the setting of acute bronchitis. Echocardiogram shows LVEF 40-45% inferior basilar wall hypokinesis. Cardiology consulted. Unlikely to be a CHF exacerbation. Patient currently on oral steroids as well as bronchodilators. Continues to have persistent cough with audible wheezing. Started on antibiotics. Now improving Subjective: She is seen and examined at bedside. No acute events overnight. Productive cough has significantly decreased. Pertinent positives and negatives as discussed above, a complete review of systems was performed and all other systems are negative. Vitals Signs Reviewed. General: nontoxic, no distress, appears at stated age Derm: warm, dry Head: atraumatic, normocephalic, symmetric Eyes: EOMI, no lid lag, anicteric sclera Mouth: no lip lesion, mucus membranes moist Cardiovascular: S1S2 reg, no murmur Lungs: Clear to auscultation, supplemental oxygen Abdominal: soft, nontender to palpation, no guarding, no appreciable organomegaly Ext: no gross muscle atrophy, no edema, no contractures Neuro: CN II-XI grossly intact, no focal neuro deficits Psych: Alert, oriented, appropriate affect Data Reviewed Today: Pertinent Labs: INR 2.7 Imaging: No new imaging Assessment and Plan: Active: Acute hypoxic respiratory failure COPD exacerbation Acute bronchitis Systolic CHF, LVEF 40-45%, not in exacerbation Hypokalemia, resolved -Continue to wean oxygen -On oral prednisone, completed course today -Continue DuoNebs, when necessary albuterol -Cough suppressant -Augmentin improved patient's symptoms, completed a 5 day course -Cardiology following -Lasix has been discontinued -Patient does have slightly reduced systolic function on echocardiogram with wall motion abnormalities -Would benefit from ischemic workup, likely outpatient Chronic: Paroxysmal atrial fibrillation on warfarin Dyslipidemia Lung cancer status post resection Hypertension Depression/anxiety DVT ppx: Warfarin Code status: Full code Anticipated discharge place: Home Anticipated discharge time: Likely Monday with oxygen. Objective - Vital Signs Vital signs: Vital Signs Temp 97.9 F 02/05/23 07:04 Pulse 68 02/05/23 09:52 Resp 18 02/05/23 07:04 BP 154/90 02/05/23 07:04 Pulse Ox 90 L 02/05/23 09:39 FiO2 21 02/05/23 09:39 Intake & Output 02/04/23 02/05/23 02/05/23 18:59 06:59 18:59 Weight 81.3 kg Other: Voiding Method Toilet # Voids 6 2 # Bowel Movements 2 - Labs CBC & Chem 7: 02/01/23 05:52 02/02/23 15:10 Labs: Abnormal Lab Results - Last 24 Hours (Table) 02/05/23 Range/Units 06:43 PT 26.2 H (9.0-12.0) sec INR 2.7 H (<1.2)
[2023-02-05] MEDS: WARFARIN 3 MG TAB PO SCH (17:42)
[2023-02-05 20:16] VITALS: RESP 19
[2023-02-05] MEDS: PRAVASTATIN SODIUM 20 MG TAB PO SCH (20:20)
[2023-02-06] MEDS: MORPHINE SULFATE 4 MG/ML SYRINGE IVP PRN ×3 (00:24→11:36)
[2023-02-06] MEDS: IPRATROPIUM-ALBUTEROL 3 ML NEB INHALATION SCH ×5 (00:38→15:29)
[2023-02-06] MEDS: NICOTINE 21MG/24HR PATCH TRANSDERM SCH (08:10)
[2023-02-06] MEDS: busPIRone HCl 10 MG TAB PO SCH (08:10)
[2023-02-06] MEDS: GABAPENTIN 300 MG CAP PO SCH (08:11)
[2023-02-06] MEDS: METOPROLOL TARTRATE 50 MG TAB PO SCH (08:11)
[2023-02-06] MEDS: LOSARTAN 50 MG TAB PO SCH (08:11)
[2023-02-06] MEDS: LACTOBACILLUS ACIDOPHILUS/PECT 1 EACH CAPSULE PO SCH (08:11)
[2023-02-06] MEDS: PANTOPRAZOLE 40 MG TABLET PO SCH (08:11)
[2023-02-06] MEDS: ISOSORBIDE MONONITRATE ER 60 MG TAB.ER.24H PO SCH (08:11)
[2023-02-06] MEDS: SERTRALINE 50 MG TAB PO SCH (08:11)
[2023-02-06] MEDS: AMOXIC-POT CLAV 875-125MG 1 EACH TAB PO SCH (08:12)
[2023-02-06 08:30] LABS: INR 3.2 (<1.2); Prothrombin Time 31.2 sec (9.0-12.0)
--- NOTE | 2023-02-06 10:50 | P.DS ---
Providers Date of admission: 01/31/23 22:35 Expected date of discharge: 02/06/23 Attending physician: Arianna Krishnan MD Primary care physician: [facility] Course: Discharge Diagnosis: Acute hypoxic respiratory failure COPD exacerbation Acute bronchitis Systolic CHF, LVEF 40-45%, not in exacerbation Hypokalemia Hospital Course: 67-year-old female with A. fib on Coumadin, COPD, lung cancer status post resection in remission presenting from outside hospital for exertional dyspnea and orthopnea. Chest x-ray from [facility] showed pulmonary vascular congestion, ProBNP elevated 27,000, Troponins negative. Patient admitted for suspected acute CHF exacerbation and COPD exacerbation in the setting of acute bronchitis. Echocardiogram shows LVEF 40-45% inferior basilar wall hypokinesis. Cardiology consulted. Unlikely to be a CHF exacerbation. Patient currently on oral steroids as well as bronchodilators. Continues to have persistent cough with audible wheezing. Started on antibiotics. Now improving. Patient being discharged on short course of oral antibiotics, cough suppressant, bronchodilators. Retana completed a course of steroids. Patient does have slightly reduced systolic function on echocardiogram with wall motion abnormalities, needs further ischemic workup outpatient. She will follow-up with cardiology. Patient seen and examined at bedside. Vital signs reviewed and stable. General: nontoxic, no distress, appears at stated age Derm: warm, dry Head: atraumatic, normocephalic, symmetric Eyes: EOMI, no lid lag, anicteric sclera Mouth: no lip lesion, mucus membranes moist Cardiovascular: S1S2 reg, no murmur Lungs: Clear to auscultation, supplemental oxygen Abdominal: soft, nontender to palpation, no guarding, no appreciable organomegaly Ext: no gross muscle atrophy, no edema, no contractures Neuro: CN II-XI grossly intact, no focal neuro deficits Psych: Alert, oriented, appropriate affect A total of 33 minutes of time were spent preparing this complex discharge summary. Patient was discharged on 02/06/23 at 8:49. Patient Condition at Discharge: Stable Plan - Discharge Summary Discharge Rx Participant: No New Discharge Prescriptions: New Amoxic-Pot Clav 875-125Mg [Augmentin 875-125] 1 each PO Q12HR #10 tab Pravastatin Sodium [Pravachol] 20 mg PO HS #90 tab Tiotropium 18 Mcg/Puff [Spiriva] 1 puff INHALATION DAILY #30 each guaiFENesin-DM 100-10MG/5ML [Robitussin DM] 10 ml PO Q6HR PRN #120 ml PRN Reason: Cough Albuterol Inhaler [Ventolin Hfa Inhaler] 1 - 2 puff INHALATION Q6H PRN #1 each PRN Reason: Shortness Of Breath Or Wheezing Continue Isosorbide Mononitrate ER [Imdur] 60 mg PO DAILY Warfarin [Coumadin] 5 mg PO [id number] Pantoprazole Sodium [Protonix] 40 mg PO DAILY Warfarin [Coumadin] 7.5 mg PO [id number] Gabapentin 600 mg PO BID Sertraline [Zoloft] 50 mg PO DAILY Acetaminophen/Diphenhydramine [Tylenol PM 500-25mg] 1 tab PO HS PRN PRN Reason: SLEEP busPIRone HCL [Buspar] 30 mg PO BID Metoprolol Tartrate [Lopressor] 50 mg PO BID Losartan Potassium [Cozaar] 100 mg PO DAILY ALPRAZolam [Xanax] 0.5 mg PO BID PRN PRN Reason: Anxiety Discharge Medication List Isosorbide Mononitrate ER [Imdur] 60 mg PO DAILY 01/02/17 [History] Warfarin [Coumadin] 5 mg PO [id number]/27/19 [History] Pantoprazole Sodium [Protonix] 40 mg PO DAILY 07/03/19 [History] ALPRAZolam [Xanax] 0.5 mg PO BID PRN 01/31/23 [History] Acetaminophen/Diphenhydramine [Tylenol PM 500-25mg] 1 tab PO HS PRN 01/31/23 [History] Gabapentin 600 mg PO BID 01/31/23 [History] Losartan Potassium [Cozaar] 100 mg PO DAILY 01/31/23 [History] Metoprolol Tartrate [Lopressor] 50 mg PO BID 01/31/23 [History] Sertraline [Zoloft] 50 mg PO DAILY 01/31/23 [History] Warfarin [Coumadin] 7.5 mg PO [id number]/31/23 [History] busPIRone HCL [Buspar] 30 mg PO BID 01/31/23 [History] Albuterol Inhaler [Ventolin Hfa Inhaler] 1 - 2 puff INHALATION Q6H PRN #1 each 02/06/23 [Rx] Amoxic-Pot Clav 875-125Mg [Augmentin 875-125] 1 each PO Q12HR #10 tab 02/06/23 [Rx] Pravastatin Sodium [Pravachol] 20 mg PO HS #90 tab 02/06/23 [Rx] Tiotropium 18 Mcg/Puff [Spiriva] 1 puff INHALATION DAILY #30 each 02/06/23 [Rx] guaiFENesin-DM 100-10MG/5ML [Robitussin DM] 10 ml PO Q6HR PRN #120 ml 02/06/23 [Rx] Follow up Appointment(s)/Referral(s): Lukas Freeman DO [Primary Care Provider] - 1-2 days (Office is closed at time of discharge. Please call for follow-up appointment.) Patient Instructions/Handouts: Acute Bronchitis (GEN) Activity/Diet/Wound Care/Special Instructions: Please see your PCP. You will also need to see cardiology and pulmonology through your PCP. Patient requires home oxygen to manage her COPD at home. Discharge Disposition: HOME WITH HOME HEALTH SERVICES
[2023-02-06] MEDS: ALPRAZolam 0.5 MG TAB PO PRN (11:36)
[2023-02-06 14:30] VITALS: BP 114/75; PULSE 79; TEMP 97.5
[2023-02-06] MEDS ORDERED: WARFARIN 0.5 MG TAB PO ONE (18:00)
== END 2023-02-06 15:38 | disposition home health service (06) | DRG 189 ==
LOC: EC 20:41 → 4SSUR 22:35
PROVIDERS: ADMIT Internal Medicine; ATTEND Internal Medicine
DX: J96.01 Acute respiratory failure with hypoxia (principal); J44.1 Chronic obstructive pulmonary disease with (acute) exacerbation; I50.20 Unspecified systolic (congestive) heart failure; J44.0 Chronic obstructive pulmonary disease with (acute) lower respiratory infection; J20.9 Acute bronchitis, unspecified; F17.210 Nicotine dependence, cigarettes, uncomplicated; I11.0 Hypertensive heart disease with heart failure; I25.10 Atherosclerotic heart disease of native coronary artery without angina pectoris; I25.2 Old myocardial infarction; E78.5 Hyperlipidemia, unspecified; E87.6 Hypokalemia; M48.00 Spinal stenosis, site unspecified; F32.A Depression, unspecified; F41.9 Anxiety disorder, unspecified; I45.10 Unspecified right bundle-branch block; I48.0 Paroxysmal atrial fibrillation; K21.9 Gastro-esophageal reflux disease without esophagitis; Z79.01 Long term (current) use of anticoagulants; Z79.899 Other long term (current) drug therapy; Z80.0 Family history of malignant neoplasm of digestive organs; Z85.118 Personal history of other malignant neoplasm of bronchus and lung; Z95.5 Presence of coronary angioplasty implant and graft; Z28.311 Partially vaccinated for COVID-19; Z88.6 Allergy status to analgesic agent; Z88.1 Allergy status to other antibiotic agents
CPT/HCPCS: 36415; 71045; 80048; 80053; 83735; 83880; 84484; 85025; 85610; 93005; 93306; 94640; 94760; 96374; 96376; 99285